=== PATIENT | male | born 1960 | race Two or more races ===

== ENCOUNTER 2017-01-26 15:50 | Emergency (ER) | payer OTHER ==
[~2017-01-26] VITALS: Ht 180.3 cm; Wt 70.3 kg
[2017-01-26 16:59] LABS: Basophils # (auto) 0 uL; Basophils % (auto) 0.2 % (0.0-2.0); CONDITION Y; Eosinophils # (auto) 0.2 uL; Eosinophils % (auto) 1.5 % (0.0-7.0); Hematocrit 45.5 % (41.0-53.0); Hemoglobin 15.8 g/dL (13.5-17.5); Lymphocytes # (auto) 3.3 uL; Lymphocytes % (auto) 22.7 % (10.0-50.0); Mean Corpuscular Hemoglobin 30.9 pg (28.0-32.0); Mean Corpuscular Hgb Conc. 34.7 g/dL (32.0-36.0); Mean Corpuscular Volume 89.2 fL (80.0-100.0); Mean Platelet Volume 8.3 fL (7.4-10.4); Monocytes # (auto) 0.6 uL; Monocytes % (auto) 4.1 % (0.0-12.0); Neutrophils # (auto) 10.3 uL; Neutrophils % (auto) 71.5 % (37.0-80.0); Platelet Count (auto) 289 10^3/uL (140-450); Red Cell Distribution Width 13.7 % (11.6-16.0); White Blood Cell 14.5 10^3/uL (4.4-10.8)
[2017-01-26 17:26] LABS: Albumin 3.7 g/dL (3.4-5.0); Alkaline Phosphatase 166 U/L (45-117); Anion Gap 9 (5-15); Aspartate Aminotransferase 19 U/L (15-37); BUN/Creatinine Ratio 15.3; Bilirubin, Total 0.4 mg/dL (0.2-1.0); Blood Urea Nitrogen 17 mg/dL (7-18); Calcium 8.8 mg/dL (8.5-10.1); Carbon Dioxide 25 mmol/L (21-32); Chloride 93 mmol/L (98-107); GFR African American 88 mL/min; GFR Non-African American 73 mL/min; Magnesium 2.3 mg/dL (1.6-2.6); Potassium 4.3 mmol/L (3.5-5.1); Sodium 127 mmol/L (136-145); Total Protein 7.7 g/dL (6.4-8.2)
[2017-01-26 17:40] LABS: Glucose 510 mg/dL (74-106)
[2017-01-26] MEDS ORDERED: SODIUM CHLORIDE 0.9% 1,000 ML IVB ONE (22:06)
[2017-01-26] MEDS ORDERED: InsuLIN REG 1unit/0.01ml Soln (100units/ml) IV ONE (22:15)
[2017-01-26 22:32] LABS: Allen Test Yes; Base Excess 2.3 mmol/L (-2.0-2.0); Blood 02Sat 92.2 % (96-100); Blood MetHb 0.1 % (0.0-1.5); HCO3 27.4 mmol/L (22-26.0); HHb 7.3 % (0.0-5.0); MODE ROOM AIR; O2Hb 86.6 % (94.0-97.0); PCO2 44.6 mmHg (35.0-45.0); PCO2(T) 44.6 mmHg (35.0-45.0); PO2 64.1 mmHg (80.0-100.0); PO2(T) 64.1 mmHg (80.0-100.0); Sample Type Arterial; pH 7.407 (7.350-7.450)
[2017-01-27 01:31] VITALS: BP 134/70
== END 2017-01-27 01:32 | disposition home or self-care (01) ==
LOC: ER 15:58
DX: E11.65 Type 2 diabetes mellitus with hyperglycemia (principal)
CPT/HCPCS: 36415; 36600; 71020; 80053; 82010; 82805; 82962; 83036; 83735; 84484; 85025; 93005; 96361; 96374; 99285; J1815; J7030; 94761

== ENCOUNTER 2020-12-03 21:06 | Emergency (ER) | payer BC, OTHER ==
[~2020-12-03] VITALS: Ht 180.3 cm; Wt 72.6 kg
[2020-12-03] MEDS ORDERED: TETANUS-DIPTH-ACEL PERTUSSIS 0.5ML SYR Tdap IM ONE (23:00)
[2020-12-03] MEDS ORDERED: cefTRIAXone 1GM/50ML D5W 50 ML IV ONE (23:00)
[2020-12-03] MEDS ORDERED: fentaNYL CITRATE 100 MCG/2 ML VL IV ONE (23:00)
[2020-12-03] MEDS ORDERED: KETOROLAC TROMETH 30 MG/ML 1ML VIAL IV ONE (23:00)
[2020-12-04 04:21] VITALS: BP 155/75
== END 2020-12-04 04:18 | disposition home or self-care (01) ==
LOC: EDBD 21:06 → ER 21:06
DX: S60.552A Superficial foreign body of left hand, initial encounter (principal); S50.812A Abrasion of left forearm, initial encounter; R51.9 Headache, unspecified; M54.2 Cervicalgia; E11.9 Type 2 diabetes mellitus without complications; I10 Essential (primary) hypertension; E78.00 Pure hypercholesterolemia, unspecified; F17.210 Nicotine dependence, cigarettes, uncomplicated; E78.5 Hyperlipidemia, unspecified; V49.49XA Driver injured in collision with other motor vehicles in traffic accident, initial encounter; Y93.89 Activity, other specified; Y92.488 Other paved roadways as the place of occurrence of the external cause; Y99.8 Other external cause status
CPT/HCPCS: 70450; 71250; 72125; 73090; 73120; 73130; 74176; 90471; 90715; 96365; 96375; 99285; J0696; J1885; J3010

== ENCOUNTER 2021-03-26 20:29 | Emergency (ER) | payer BC, OTHER ==
[~2021-03-26] VITALS: Ht 180.3 cm; Wt 71.7 kg
[2021-03-26 20:30] VITALS: BP 155/73
[2021-03-26] MEDS ORDERED: ACCU-CHEK COMFORT CURVE STRIP VI ONE (20:45)
[2021-03-26 20:57] LABS: Basophils # (auto) 0.1 10 ^3/uL (0-0.2); Basophils % (auto) 0.7 % (0.0-2.0); Eosinophils # (auto) 0.4 10 ^3/uL (0-0.8); Eosinophils % (auto) 2.9 % (0.0-7.0); Hematocrit 40.1 % (41.0-53.0); Hemoglobin 13.7 g/dL (13.5-17.5); Lymphocytes # (auto) 3.9 10 ^3/uL (0.4-5.4); Lymphocytes % (auto) 28.3 % (10.0-50.0); Mean Corpuscular Hemoglobin 30.2 pg (28.0-32.0); Mean Corpuscular Volume 88.7 fL (80.0-100.0); Monocytes # (auto) 0.9 10 ^3/uL (0-1.3); Monocytes % (auto) 6.9 % (0.0-12.0); Neutrophils # (auto) 8.4 10 ^3/uL (1.6-8.6); Neutrophils % (auto) 61.2 % (37.0-80.0); Nucleated Red Blood Cells % 0.1 %; Red Blood Cells 4.52 10^6/uL (4.5-5.90); Red Cell Distribution Width 13.1 % (11.8-14.3); White Blood Cell 13.7 10^3/uL (4.4-10.8)
[2021-03-26 21:14] LABS: Albumin 3.3 g/dL (3.4-5.0); Calcium 8.7 mg/dL (8.5-10.1); Potassium 3.8 mmol/L (3.5-5.1)
[2021-03-26 21:17] LABS: BUN/Creatinine Ratio 14.7; Bilirubin, Total 0.3 mg/dL (0.2-1.0); Total Protein 7.2 g/dL (6.4-8.2)
[2021-03-27] MEDS ORDERED: InsuLIN REG 1unit/0.01ml Soln (100units/ml) IV ONE (04:00)
== END 2021-03-27 07:10 | disposition left against medical advice (07) ==
LOC: ER 20:31
DX: R73.9 Hyperglycemia, unspecified (principal); Z53.21 Procedure and treatment not carried out due to patient leaving prior to being seen by health care provider
CPT/HCPCS: 36415; 80053; 85025

== ENCOUNTER 2023-06-18 00:54 | Emergency (ER) | payer MEDICAID ==
[~2023-06-18] VITALS: Ht 170.2 cm; Wt 70.0 kg
[~2023-06-18 00:54] MED LIST: AMLO1TAB23 PO; ATOR40TA52 PO; CEPH-510 PO; CLOP75TA70 PO; ERGO1CAP12 PO; GLIM4TAB42 PO; INSU1INJ19 SC; METF-372 PO; PARO10TA93 PO; SITA100T7 PO
[2023-06-18] MEDS ORDERED: hydrALAZINE HCL 20 MG/ML VL IV ONE (01:15)
[2023-06-18 01:26] VITALS: PULSE 83; RESP 18; TEMP 98.4; O2SAT 95
[2023-06-18 01:45] LABS: Basophils # (auto) 0.1 10 ^3/uL (0-0.2); Basophils % (auto) 0.8 % (0.0-2.0); Eosinophils # (auto) 0.4 10 ^3/uL (0-0.8); Eosinophils % (auto) 3.5 % (0.0-7.0); Hematocrit 42.3 % (41.0-53.0); Hemoglobin 14.4 g/dL (13.5-17.5); Lymphocytes # (auto) 3.2 10 ^3/uL (0.4-5.4); Lymphocytes % (auto) 28.4 % (10.0-50.0); Mean Corpuscular Hemoglobin 29.6 pg (28.0-32.0); Mean Corpuscular Hgb Conc. 34.1 g/dL (32.0-36.0); Mean Corpuscular Volume 86.9 fL (80.0-100.0); Monocytes # (auto) 0.9 10 ^3/uL (0-1.3); Monocytes % (auto) 7.9 % (0.0-12.0); Neutrophils # (auto) 6.6 10 ^3/uL (1.6-8.6); Neutrophils % (auto) 59.4 % (37.0-80.0); Nucleated Red Blood Cells % 0.2 %; Red Blood Cells 4.86 10^6/uL (4.5-5.90); Red Cell Distribution Width 13.7 % (11.8-14.3); White Blood Cell 11.2 10^3/uL (4.4-10.8)
[2023-06-18 02:05] LABS: INR 0.93 (0.9-1.15); Partial Thromboplastin Time 27.4 SEC (24.5-34.5); Prothrombin Time 9.8 sec (9.3-11.8)
[2023-06-18 02:10] LABS: Alanine Aminotransferase 56 U/L (7-40); Albumin 3.8 g/dL (3.2-4.8); Alkaline Phosphatase 147 U/L (46-116); Anion Gap 7 (5-15); Aspartate Aminotransferase 31 U/L (13-40); BUN/Creatinine Ratio 12.2 (10.0-20.0); Bilirubin, Total 0.4 mg/dL (0.2-1.0); Blood Urea Nitrogen 15 mg/dL (9-23); Calcium 8.4 mg/dL (8.7-10.4); Carbon Dioxide 26 mmol/L (20-30); Chloride 102 mmol/L (98-107); Glucose 161 mg/dL (74-106); Magnesium 1.9 mg/dL (1.6-2.6); Potassium 4.4 mmol/L (3.5-5.1); Sodium 135 mmol/L (136-145); Total Protein 6.8 g/dL (5.7-8.2)
[2023-06-18 06:30] VITALS: BP 148/75; PULSE 84; RESP 18; O2SAT 98
== END 2023-06-18 06:35 | disposition home or self-care (01) ==
LOC: ER 00:54 → EDBD 00:54 → EDUNIT# 00:54 → ER 06:35
DX: I10 Essential (primary) hypertension (principal); R42 Dizziness and giddiness; E83.51 Hypocalcemia; E11.65 Type 2 diabetes mellitus with hyperglycemia; R07.89 Other chest pain; E78.5 Hyperlipidemia, unspecified; Z79.4 Long term (current) use of insulin; Z79.01 Long term (current) use of anticoagulants; Z79.899 Other long term (current) drug therapy
CPT/HCPCS: 36415; 70450; 71045; 80053; 83735; 83880; 84484; 85025; 85610; 85730; 93005; 96374; 99285; J0360

== ENCOUNTER → 2023-07-17 | Outpatient (CLI) | payer MEDICAID ==
[2023-07-17 10:51] LABS: Anion Gap 6 (5-15); Calcium 9.1 mg/dL (8.5-10.1); Carbon Dioxide 28 mmol/L (20-30); Chloride 102 mmol/L (98-107); Potassium 4.7 mmol/L (3.5-5.1); Sodium 136 mmol/L (136-145)
[2023-07-17 10:57] LABS: BUN/Creatinine Ratio 15.5 (10.0-20.0); Blood Urea Nitrogen 16 mg/dL (9-23); Glucose 180 mg/dL (74-106)
== END | disposition home or self-care (01) ==
LOC: LAB 09:52
PROVIDERS: ATTEND Internal Medicine
DX: E11.641 Type 2 diabetes mellitus with hypoglycemia with coma (principal); E78.5 Hyperlipidemia, unspecified; Z79.4 Long term (current) use of insulin
CPT/HCPCS: 36415; 80048

== ENCOUNTER 2023-08-06 13:00 | Inpatient (IN) | payer MEDICAID ==
[~2023-08-06] VITALS: Ht 180.3 cm; Wt 71.0 kg
[2023-08-06] MEDS ORDERED: FUROSEMIDE 40 MG/4 ML VIAL IV ONE (17:00)
[2023-08-06 17:04] LABS: Basophils # (auto) 0.1 10 ^3/uL (0-0.2); Basophils % (auto) 0.6 % (0.0-2.0); Eosinophils # (auto) 0.3 10 ^3/uL (0-0.8); Eosinophils % (auto) 3.4 % (0.0-7.0); Hematocrit 39.4 % (41.0-53.0); Hemoglobin 13.2 g/dL (13.5-17.5); Lymphocytes # (auto) 1.9 10 ^3/uL (0.4-5.4); Lymphocytes % (auto) 18.9 % (10.0-50.0); Mean Corpuscular Hemoglobin 29.1 pg (28.0-32.0); Mean Corpuscular Hgb Conc. 33.5 g/dL (32.0-36.0); Mean Corpuscular Volume 86.8 fL (80.0-100.0); Monocytes # (auto) 0.9 10 ^3/uL (0-1.3); Monocytes % (auto) 8.6 % (0.0-12.0); Neutrophils # (auto) 6.9 10 ^3/uL (1.6-8.6); Neutrophils % (auto) 68.5 % (37.0-80.0); Red Blood Cells 4.55 10^6/uL (4.5-5.90); Red Cell Distribution Width 13.3 % (11.8-14.3); White Blood Cell 10.1 10^3/uL (4.4-10.8)
[2023-08-06 17:21] LABS: Alanine Aminotransferase 39 U/L (7-40); Alkaline Phosphatase 187 U/L (46-116); Calcium 8.7 mg/dL (8.5-10.1); Carbon Dioxide 26 mmol/L (20-30); Chloride 104 mmol/L (98-107)
[2023-08-06 17:22] LABS: Albumin 3.9 g/dL (3.2-4.8); Anion Gap 8 (5-15); Aspartate Aminotransferase 29 U/L (13-40); BUN/Creatinine Ratio 22.2 (10.0-20.0); Bilirubin, Total 0.3 mg/dL (0.2-1.0); Blood Urea Nitrogen 28 mg/dL (9-23); Glucose 120 mg/dL (74-106); Potassium 4.7 mmol/L (3.5-5.1); Sodium 138 mmol/L (136-145); Total Protein 6.9 g/dL (5.7-8.2)
[2023-08-06] MEDS ORDERED: ONDANSETRON HCL 4 MG/2 ML VIAL IV PRN (17:45)
[2023-08-06] MEDS ORDERED: ACETAMINOPHEN 325 MG TAB PO PRN (17:45)
[2023-08-06] MEDS ORDERED: MORPHINE SULFATE INJ 2 MG/ml SYRG IV PRN (17:45)
[2023-08-06] MEDS ORDERED: DOCUSATE SOD 100 MG CAP PO PRN (17:45)
[2023-08-06] MEDS ORDERED: NITROGLYCERIN 0.4 MG SL TAB SL PRN (17:45)
[2023-08-06] MEDS ORDERED: LISI20TA56 PO (19:18)
[2023-08-06] MEDS ORDERED: ALBUTEROL SULF 2.5 MG/0.5ML(0.5%) NEB SOLN NEB PRN (19:30)
[2023-08-06] MEDS ORDERED: IPRATROPIUM BROM 0.5 MG/2.5ML INH SOL NEB PRN (19:30)
[2023-08-06 20:30] VITALS: PULSE 95; RESP 18; O2SAT 95
[2023-08-07] VITALS (9 sets, daily range): BP systolic 141–165; BP diastolic 81–85; PULSE 0–90; RESP 17–18; TEMP 97.8–98; O2SAT 92–98
[2023-08-07] MEDS: ATORVASTATIN 20 MG TAB PO SCH ×2 (00:05→21:04)
[2023-08-07 03:56] LABS: Urine Bacteria NONE SEEN /hpf (None Seen); Urine Blood TRACE /uL (Negative); Urine Clarity Clear (Clear); Urine Color Yellow (Yellow); Urine Protein, UAD 3+ (Negative); Urine Specific Gravity 1.016 (1.001-1.035); Urine Urobilinogen Normal (Negative); Urine WBC 1 /hpf (0 - 3)
[2023-08-07 05:56] LABS: COVID19 ANTIGEN SOFIA FIA NEGATIVE (NEGATIVE)
[2023-08-07 06:54] LABS: Basophils # (auto) 0.1 10 ^3/uL (0-0.2); Basophils % (auto) 0.6 % (0.0-2.0); Eosinophils # (auto) 0.3 10 ^3/uL (0-0.8); Hematocrit 38.3 % (41.0-53.0); Hemoglobin 13.2 g/dL (13.5-17.5); Lymphocytes % (auto) 18.5 % (10.0-50.0); Mean Corpuscular Hemoglobin 30.1 pg (28.0-32.0); Mean Corpuscular Hgb Conc. 34.6 g/dL (32.0-36.0); Mean Corpuscular Volume 86.9 fL (80.0-100.0); Monocytes # (auto) 0.8 10 ^3/uL (0-1.3); Monocytes % (auto) 7.3 % (0.0-12.0); Neutrophils # (auto) 7.4 10 ^3/uL (1.6-8.6); Neutrophils % (auto) 70.6 % (37.0-80.0); Nucleated Red Blood Cells % 0.2 %; Red Cell Distribution Width 13.5 % (11.8-14.3); White Blood Cell 10.5 10^3/uL (4.4-10.8)
[2023-08-07 07:03] LABS: Alanine Aminotransferase 32 U/L (7-40); Albumin 3.9 g/dL (3.2-4.8); Alkaline Phosphatase 176 U/L (46-116); Anion Gap 8 (5-15); Aspartate Aminotransferase 30 U/L (13-40); BUN/Creatinine Ratio 19.8 (10.0-20.0); Blood Urea Nitrogen 26 mg/dL (9-23); Calcium 8.6 mg/dL (8.5-10.1); Carbon Dioxide 25 mmol/L (20-30); Chloride 102 mmol/L (98-107); Glucose 185 mg/dL (74-106); Potassium 4.3 mmol/L (3.5-5.1); Sodium 135 mmol/L (136-145)
[2023-08-07 07:04] LABS: Bilirubin, Total 0.3 mg/dL (0.2-1.0); Total Protein 7.1 g/dL (5.7-8.2)
[2023-08-07] MEDS ORDERED: INSULIN LANTUS (GLARGINE) 1 /0.01ml (100units/ml) SC ONE (09:45)
[2023-08-07] MEDS ORDERED: DEXTROSE (50%) 50ML SYRG IV PRN (09:45)
[2023-08-07] MEDS ORDERED: FUROSEMIDE 20 MG/2 ML VIAL IV SCH (10:00)
[2023-08-07 10:10] LABS: Magnesium 2.4 mg/dL (1.6-2.6)
[2023-08-07] MEDS ORDERED: ASPI1TAB20 PO (10:18)
[2023-08-07] MEDS ORDERED: INSU100I52 SC (11:15)
[2023-08-07] MEDS ORDERED: INSU100I70 SC (11:15)
[2023-08-07] MEDS ORDERED: METF-370 PO (11:15)
[2023-08-07] MEDS ORDERED: PEN400T PO (11:15)
[2023-08-07] MEDS ORDERED: ASPI325T4 PO (11:15)
[2023-08-07] MEDS ORDERED: GABA-1308 PO (11:15)
[2023-08-07] MEDS: InsuLIN REG 1unit/0.01ml Soln (100units/ml) SC SCH ×3 (11:30→21:12)
[2023-08-07] MEDS: ACCU-CHEK COMFORT CURVE STRIP VI SCH ×3 (11:30→21:12)
[2023-08-07] MEDS: FUROSEMIDE 20 MG/2 ML VIAL IV SCH ×2 (11:51→21:04)
[2023-08-07] MEDS: LISINOPRIL 20 MG TAB PO SCH (11:52)
[2023-08-07] MEDS: CARVEDILOL 3.125 MG TAB PO SCH ×2 (11:53→21:04)
[2023-08-07] MEDS: ENOXAPARIN SOD 40 MG/0.4 ML SYRINGE SC SCH (11:53)
[2023-08-07] MEDS: amLODIPine BESYLATE 5 MG TAB PO SCH (11:53)
[2023-08-07] MEDS: CLOPIDOGREL BISULFATE 75 MG TAB PO SCH (11:53)
[2023-08-08 05:00] VITALS: BP 138/74; PULSE 70; RESP 20; TEMP 97.6; O2SAT 91
[2023-08-08] MEDS: InsuLIN REG 1unit/0.01ml Soln (100units/ml) SC SCH ×2 (06:02→12:23)
[2023-08-08] MEDS: ACCU-CHEK COMFORT CURVE STRIP VI SCH ×2 (06:02→12:24)
[2023-08-08 06:22] LABS: Basophils # (auto) 0.1 10 ^3/uL (0-0.2); Basophils % (auto) 0.8 % (0.0-2.0); Eosinophils # (auto) 0.4 10 ^3/uL (0-0.8); Eosinophils % (auto) 4.3 % (0.0-7.0); Hematocrit 35.2 % (41.0-53.0); Hemoglobin 12.1 g/dL (13.5-17.5); Lymphocytes # (auto) 2.4 10 ^3/uL (0.4-5.4); Lymphocytes % (auto) 26.1 % (10.0-50.0); Mean Corpuscular Hemoglobin 29.8 pg (28.0-32.0); Mean Corpuscular Hgb Conc. 34.4 g/dL (32.0-36.0); Mean Corpuscular Volume 86.8 fL (80.0-100.0); Monocytes # (auto) 0.8 10 ^3/uL (0-1.3); Monocytes % (auto) 8.9 % (0.0-12.0); Neutrophils # (auto) 5.5 10 ^3/uL (1.6-8.6); Neutrophils % (auto) 59.9 % (37.0-80.0); Red Blood Cells 4.05 10^6/uL (4.5-5.90); Red Cell Distribution Width 13.3 % (11.8-14.3); White Blood Cell 9.2 10^3/uL (4.4-10.8)
[2023-08-08 06:24] LABS: INR 1.01 (0.9-1.15); Prothrombin Time 10.6 sec (9.3-11.8)
[2023-08-08 06:25] LABS: Anion Gap 7 (5-15); Calcium 8.5 mg/dL (8.5-10.1); Carbon Dioxide 25 mmol/L (20-30); Chloride 103 mmol/L (98-107); Potassium 4.2 mmol/L (3.5-5.1); Sodium 135 mmol/L (136-145)
[2023-08-08 06:30] LABS: Glucose 107 mg/dL (74-106)
[2023-08-08 06:31] LABS: BUN/Creatinine Ratio 14.9 (10.0-20.0); Blood Urea Nitrogen 17 mg/dL (9-23)
[2023-08-08 06:33] LABS: Phosphorus 4.4 mg/dL (2.4-5.1)
[2023-08-08] MEDS ORDERED: INSULIN LANTUS (GLARGINE) 1 /0.01ml (100units/ml) SC SCH (07:00)
[2023-08-08 07:50] VITALS: O2SAT 95
[2023-08-08 08:00] VITALS: PULSE 81
[2023-08-08 09:27] VITALS: BP 153/75; PULSE 83; RESP 20; TEMP 98.2; O2SAT 93
[2023-08-08] MEDS: CLOPIDOGREL BISULFATE 75 MG TAB PO SCH (10:43)
[2023-08-08] MEDS: LISINOPRIL 20 MG TAB PO SCH (10:43)
[2023-08-08] MEDS: amLODIPine BESYLATE 5 MG TAB PO SCH (10:44)
[2023-08-08] MEDS: CARVEDILOL 3.125 MG TAB PO SCH (10:45)
[2023-08-08] MEDS: FUROSEMIDE 20 MG/2 ML VIAL IV SCH (10:45)
[2023-08-08] MEDS: ENOXAPARIN SOD 40 MG/0.4 ML SYRINGE SC SCH (10:45)
[2023-08-08] MEDS ORDERED: EMPA1TAB PO (11:14)
[2023-08-08] MEDS ORDERED: FURO1TAB33 PO (11:14)
[2023-08-08 12:02] LABS: Magnesium 2.4 mg/dL (1.6-2.6)
[2023-08-08 12:29] VITALS: BP 132/74; PULSE 78; RESP 20; TEMP 98.4; O2SAT 95
[2023-08-09 08:28] LABS: Hepatitis B Surface Antigen Negative (Negative)
[2023-08-09 08:49] LABS: Hepatitis C Antibody Negative (Negative)
== END 2023-08-08 16:45 | disposition home or self-care (01) | DRG 194 ==
LOC: ER 13:00 → TELE 17:43 → TELE-WESTW 08-07 09:13
PROVIDERS: ADMIT Internal Medicine Geriatric Medicine; ATTEND Emergency Medicine
DX: I11.0 Hypertensive heart disease with heart failure (principal); E11.9 Type 2 diabetes mellitus without complications; I50.33 Acute on chronic diastolic (congestive) heart failure; R09.89 Other specified symptoms and signs involving the circulatory and respiratory systems; E78.5 Hyperlipidemia, unspecified; Z20.822 Contact with and (suspected) exposure to COVID-19; Z89.511 Acquired absence of right leg below knee; Z79.2 Long term (current) use of antibiotics; Z79.899 Other long term (current) drug therapy; Z79.02 Long term (current) use of antithrombotics/antiplatelets; Z83.3 Family history of diabetes mellitus; Z82.49 Family history of ischemic heart disease and other diseases of the circulatory system
CPT/HCPCS: 36415; 71046; 80048; 80053; 80061; 81001; 82306; 82962; 83036; 83735; 83880; 84100; 84443; 84484; 85025; 85610; 86803; 87340; 87426; 93005; 93306; 93970; G0378; J1815

== ENCOUNTER → 2023-10-09 | Outpatient (CLI) | payer MEDICAID ==
[~2023-10-09] VITALS: Ht 180.3 cm; Wt 73.5 kg
[~2023-10-09] MED LIST changes: +ADENOSINE 62 MG in GIVE UN-DILUTED 0 ML IV ONE; +ADENOSINE 90 MG/30 ML INJ IV ONE; -AMLO1TAB23 PO; +ASPI1TAB20 PO; -CEPH-510 PO; +EMPA1TAB PO; -ERGO1CAP12 PO; +FURO1TAB33 PO; +GABA-1308 PO; +INSU100I52 SC; +INSU100I70 SC; -INSU1INJ19 SC; +LISI20TA56 PO; +METF-370 PO; -METF-372 PO; -PARO10TA93 PO; +PEN400T PO; -SITA100T7 PO
== END | disposition home or self-care (01) ==
LOC: Rad HDHVI 14:04
PROVIDERS: ATTEND Internal Medicine Cardiovascular Disease
DX: I10 Essential (primary) hypertension (principal); E11.9 Type 2 diabetes mellitus without complications; R06.02 Shortness of breath; E78.5 Hyperlipidemia, unspecified; Z82.49 Family history of ischemic heart disease and other diseases of the circulatory system
CPT/HCPCS: 78452; 93005; 96374; 96375; A9500; J0153

== ENCOUNTER → 2024-01-22 | Outpatient (CLI) | payer MEDICAID ==
[~2024-01-22] MED LIST changes: -ADENOSINE 62 MG in GIVE UN-DILUTED 0 ML IV ONE; -ADENOSINE 90 MG/30 ML INJ IV ONE
[2024-01-22 08:00] LABS: Urine Bacteria None Seen /hpf (None Seen)
[2024-01-22 08:06] LABS: Basophils # (auto) 0.1 10 ^3/uL (0-0.2); Basophils % (auto) 0.8 % (0.0-2.0); Eosinophils # (auto) 0.5 10 ^3/uL (0-0.8); Eosinophils % (auto) 3.7 % (0.0-7.0); Hematocrit 46.3 % (41.0-53.0); Hemoglobin 15.6 g/dL (13.5-17.5); Lymphocytes # (auto) 2.8 10 ^3/uL (0.4-5.4); Lymphocytes % (auto) 22.3 % (10.0-50.0); Mean Corpuscular Hemoglobin 29.6 pg (28.0-32.0); Mean Corpuscular Hgb Conc. 33.6 g/dL (32.0-36.0); Mean Corpuscular Volume 87.9 fL (80.0-100.0); Monocytes # (auto) 0.9 10 ^3/uL (0-1.3); Neutrophils # (auto) 8.4 10 ^3/uL (1.6-8.6); Neutrophils % (auto) 66.2 % (37.0-80.0); Nucleated Red Blood Cells % 0.2 %; Red Blood Cells 5.27 10^6/uL (4.5-5.90); Red Cell Distribution Width 13.7 % (11.8-14.3); White Blood Cell 12.7 10^3/uL (4.4-10.8)
[2024-01-22 08:19] LABS: Urine Blood TRACE /uL (Negative); Urine Clarity Clear (Clear); Urine Color Light-Yellow (Yellow); Urine Hyaline Cast FEW /lpf (0 - 2); Urine Protein, UAD 2+ (Negative); Urine Specific Gravity 1.015 (1.001-1.035); Urine Urobilinogen Normal (Negative); Urine WBC 1 /hpf (0 - 3)
[2024-01-22 08:48] LABS: Creatinine, Urine 61.95 mg/dL (30.0-125.0)
[2024-01-22 08:51] LABS: Alanine Aminotransferase 31 U/L (7-40); Alkaline Phosphatase 244 U/L (46-116); Anion Gap 6 (5-15); BUN/Creatinine Ratio 14.3 (10.0-20.0); Blood Urea Nitrogen 15 mg/dL (9-23); Calcium 9.2 mg/dL (8.5-10.1); Carbon Dioxide 28 mmol/L (20-30); Chloride 104 mmol/L (98-107); Glucose 144 mg/dL (74-106); LDL Cholesterol 74 mg/dL (< 100); Potassium 4.2 mmol/L (3.5-5.1); Sodium 138 mmol/L (136-145); Triglycerides 186 mg/dL (< 150)
[2024-01-22 08:52] LABS: Albumin 3.9 g/dL (3.2-4.8); Aspartate Aminotransferase 20 U/L (13-40); Bilirubin, Total 0.4 mg/dL (0.2-1.0); Cholesterol 135 mg/dL (< 200); HDL Cholesterol 32 mg/dL (40-59); Total Protein 6.8 g/dL (5.7-8.2)
== END | disposition home or self-care (01) ==
LOC: LAB 07:47
PROVIDERS: ATTEND Internal Medicine
DX: Z00.01 Encounter for general adult medical examination with abnormal findings (principal); I10 Essential (primary) hypertension; I73.9 Peripheral vascular disease, unspecified; E78.5 Hyperlipidemia, unspecified; R94.4 Abnormal results of kidney function studies; E11.69 Type 2 diabetes mellitus with other specified complication
CPT/HCPCS: 36415; 80053; 80061; 81001; 82043; 82570; 83036; 84439; 84443; 85025

== ENCOUNTER → 2024-05-07 | Outpatient (CLI) | payer MEDICARE, MEDICAID ==
[2024-05-07 08:54] LABS: Basophils # (auto) 0.1 10 ^3/uL (0-0.2); Basophils % (auto) 0.6 % (0.0-2.0); Eosinophils # (auto) 0.3 10 ^3/uL (0-0.8); Eosinophils % (auto) 2.9 % (0.0-7.0); Hematocrit 47.4 % (41.0-53.0); Hemoglobin 16.3 g/dL (13.5-17.5); Lymphocytes # (auto) 2.5 10 ^3/uL (0.4-5.4); Lymphocytes % (auto) 22.2 % (10.0-50.0); Mean Corpuscular Hemoglobin 30.6 pg (28.0-32.0); Mean Corpuscular Hgb Conc. 34.3 g/dL (32.0-36.0); Mean Corpuscular Volume 89.1 fL (80.0-100.0); Monocytes # (auto) 0.6 10 ^3/uL (0-1.3); Monocytes % (auto) 5.3 % (0.0-12.0); Neutrophils # (auto) 7.8 10 ^3/uL (1.6-8.6); Nucleated Red Blood Cells % 0.1 %; Platelet Count (auto) 300 10^3/uL (140-450); Red Blood Cells 5.32 10^6/uL (4.5-5.90); Red Cell Distribution Width 14.5 % (11.8-14.3); White Blood Cell 11.2 10^3/uL (4.4-10.8)
[2024-05-07 08:59] LABS: Creatinine, Urine 101.47 mg/dL (30.0-125.0)
[2024-05-07 09:02] LABS: Alanine Aminotransferase 28 U/L (7-40); Albumin 3.6 g/dL (3.2-4.8); Alkaline Phosphatase 214 U/L (46-116); Anion Gap 5 (5-15); Aspartate Aminotransferase 24 U/L (13-40); BUN/Creatinine Ratio 20.3 (10.0-20.0); Blood Urea Nitrogen 26 mg/dL (9-23); Calcium 8.9 mg/dL (8.7-10.4); Carbon Dioxide 25 mmol/L (20-31); Chloride 108 mmol/L (98-107); Glucose 156 mg/dL (74-106); Potassium 4.5 mmol/L (3.5-5.1); Prostate Specific Antigen 0.32 ng/mL (0.0-4.0); Sodium 138 mmol/L (136-145)
[2024-05-07 09:03] LABS: Bilirubin, Total 0.4 mg/dL (0.2-1.0); Total Protein 6.6 g/dL (5.7-8.2)
[2024-05-07 09:06] LABS: Leuteinizing Hormone 9.4 IU/L (1.5-9.3)
[2024-05-12 00:06] LABS: Free Testosterone(Direct) 8.5 pg/mL (6.6-18.1)
== END | disposition home or self-care (01) ==
LOC: LAB 08:14
PROVIDERS: ATTEND Internal Medicine
DX: Z12.5 Encounter for screening for malignant neoplasm of prostate (principal); C61 Malignant neoplasm of prostate; I13.0 Hypertensive heart and chronic kidney disease with heart failure and stage 1 through stage 4 chronic kidney disease, or unspecified chronic kidney disease; N18.2 Chronic kidney disease, stage 2 (mild); E11.22 Type 2 diabetes mellitus with diabetic chronic kidney disease; I50.9 Heart failure, unspecified; E29.1 Testicular hypofunction
CPT/HCPCS: 36415; 80053; 82043; 82570; 83001; 83002; 83036; 84402; 84403; 85025; G0103; 84153

== ENCOUNTER → 2024-07-18 | Day surgery (SDC) | payer MEDICARE, MEDICAID ==
[2024-07-15 09:56] LABS: Basophils # (auto) 0.1 10 ^3/uL (0-0.2); Basophils % (auto) 0.7 % (0.0-2.0); Eosinophils # (auto) 0.3 10 ^3/uL (0-0.8); Eosinophils % (auto) 2.6 % (0.0-7.0); Hematocrit 48.6 % (41.0-53.0); Hemoglobin 16.2 g/dL (13.5-17.5); Lymphocytes # (auto) 2.5 10 ^3/uL (0.4-5.4); Mean Corpuscular Hemoglobin 29.6 pg (28.0-32.0); Mean Corpuscular Hgb Conc. 33.5 g/dL (32.0-36.0); Mean Corpuscular Volume 88.4 fL (80.0-100.0); Monocytes # (auto) 0.6 10 ^3/uL (0-1.3); Monocytes % (auto) 5.6 % (0.0-12.0); Neutrophils # (auto) 7.5 10 ^3/uL (1.6-8.6); Neutrophils % (auto) 68.1 % (37.0-80.0); Nucleated Red Blood Cells % 0.1 %; Platelet Count (auto) 286 10^3/uL (140-450); Red Blood Cells 5.49 10^6/uL (4.5-5.90); Red Cell Distribution Width 14.4 % (11.8-14.3)
[2024-07-15 10:07] LABS: INR 0.95 (0.9-1.15); Partial Thromboplastin Time 28.1 SEC (24.5-34.5); Prothrombin Time 10.1 sec (9.3-11.8)
[2024-07-15 10:22] LABS: Alanine Aminotransferase 33 U/L (7-40); Albumin 3.2 g/dL (3.2-4.8); Anion Gap 4 (5-15); Aspartate Aminotransferase 21 U/L (13-40); BUN/Creatinine Ratio 14.3 (10.0-20.0); Blood Urea Nitrogen 16 mg/dL (9-23); Carbon Dioxide 27 mmol/L (20-31); Chloride 107 mmol/L (98-107); Sodium 138 mmol/L (136-145)
[2024-07-15 10:23] LABS: Alkaline Phosphatase 259 U/L (46-116); Calcium 8.4 mg/dL (8.7-10.4); Glucose 190 mg/dL (74-106)
[2024-07-15 10:24] LABS: Bilirubin, Total 0.4 mg/dL (0.2-1.0)
[~2024-07-18] VITALS: Ht 180.3 cm; Wt 70.3 kg
[~2024-07-18] MED LIST changes: +DexAMETHasone SOD PHOS 10MG/1ML VIAL INJ ONE; +LIDOCAINE VISCOUS 2% 15ML UD ONE; +MEPERIDINE HCL (25 MG/ML) 1ML VIAL ONE; +MIDAZOLAM HCL 2MG/2ML 2ml VIAL (1mg/ml) ONE; +PROPOFOL 10 MG/ML 20 ML IV ONE; +fentaNYL CITRATE 100 MCG/2 ML VL ONE
[2024-07-18 10:20] LABS: Urine Bacteria FEW /hpf (None Seen); Urine Blood 2+ /uL (Negative); Urine Clarity Clear (Clear); Urine Color Yellow (Yellow); Urine Hyaline Cast FEW /lpf (0 - 2); Urine Protein, UAD 3+ (Negative); Urine Specific Gravity 1.016 (1.001-1.035); Urine Urobilinogen Normal (Negative); Urine WBC 2 /hpf (0 - 3)
[2024-07-18 11:42] VITALS: BP 107/53; PULSE 62; RESP 11; O2SAT 100
--- NOTE | 2024-07-18 12:31 | DVHOP2 ---
Operative Report DATE OF OPERATION: 07/18/24 PROCEDURE: Upper Endoscopy with biopsy. PREOPERATIVE INDICATION: The patient is a 63 -year-old male undergoing endoscopy for GERD and abdominal pain POSTOPERATIVE DIAGNOSES: 1. Moderate gastroduodenitis with pre-pyloric antral gastric erosions and pylorospasm 2. 1 cm sliding-type hiatal hernia with slightly irregular squamocolumnar junction but no significant erosive esophagitis PROCEDURE PERFORMED BY: Sharita Vásquez GI NURSE: Ko SCOPE: Olympus videoendoscope. ASA CLASS: 3. PREOPERATIVE MEDICATIONS: Dr. Mirna Chacko PROCEDURE IN DETAIL: After obtaining an informed consent, the patient was placed on left lateral decubitus position. The patient was then sedated with the above medications. A bite block was placed between his teeth. The endoscope was then passed through the oropharynx, into the esophagus, and through the stomach and pylorus up to the second and third part of the duodenum. The endoscope was then withdrawn. The 2nd and 3rd part of the duodenal were normal. Duodenal bulb showed duodenitis with hyperemia erythema The pre-pyloric area antrum showed antral gastritis with pre-pyloric antral gastric erosions. There was pylorospasm Duodenal and gastric biopsies were obtained. On retroflexion the fundus cardia and angularis were normal. The endoscope was then withdrawn into the distal esophagus where she had a 1 cm sliding-type hiatal hernia There was no significant erosive esophagitis but I did do GE junction biopsies. The remaining distal and proximal esophagus and oropharynx were unremarkable The patient tolerated the procedure well without difficulty. COMPLICATIONS : None SPECIMENS: Duodenal biopsies Gastric biopsies GE junction biopsies DISPOSITION: Stable D/C to home PLAN: 1. Await for biopsy result 2. Will place pt on Protonix 40 mg p.o. daily 3. Carafate 1 g p.o. twice a day 4. DC aspirin NSAIDs smoking alcohol 5. Resume GI soft diet and advance as tolerated SHARITA VÁSQUEZ MD Jul 18, 2024 12:31
--- NOTE | 2024-07-18 12:35 | DVHOP2 ---
Operative Report DATE OF OPERATION: 07/18/24 PROCEDURE: Colonoscopy with snare polypectomy. PREOPERATIVE INDICATION: The patient is a 63 -year-old male undergoing colonoscopy for colon cancer screening with change in bowel habits increasing constipation POSTOPERATIVE DIAGNOSES: 1. Patient had a 2 cm benign-appearing ascending colon polyp that was seen and removed completely in a piecemeal fashion and the specimens were retrieved 2. 1+ internal hemorrhoids that were slightly engorged 3. Somewhat limited study due to poor prep otherwise grossly normal examination up to the cecum PROCEDURE PERFORMED BY: Sharita Vásquez M.D. SCOPE: Olympus videocolonoscope. ASA CLASS: 3. PREOPERATIVE MEDICATIONS: Mac Dr. Mirna collier PROCEDURE IN DETAIL: After obtaining an informed consent, the patient was placed on left lateral decubitus position. He was then sedated with the above medications. A rectal examination was performed that was normal. The colonoscope was then passed through the anus into the rectosigmoid and through the descending, transverse, and ascending colon up to the cecum with visualization of the appendiceal orifice, base of the cecum and the ileocecal valve. The colonoscope was then withdrawn. Patient had a 2 cm benign-appearing ascending colon polyp. This was removed in a piecemeal fashion and the specimen was removed completely. An adjacent smaller tiny polyp was removed by cold biopsy forceps. No other polyps or masses were seen. The patient had a somewhat limited study due to poor prep however after careful irrigation aspiration no other gross lesion was seen. On retroflexion he had 1+ internal hemorrhoids. The patient tolerated the procedure well without difficulty. WITHDRAWAL TIME: 12 minutes QUALITY OF THE PREP: [place] Bowel Prep score: 7. COMPLICATIONS : None SPECIMENS: Ascending colon polyp DISPOSITION: Stable D/C to home PLAN: 1. Repeat colonoscopy based on biopsy result likely in 2-3 years with a better bowel prep 2. Resume GI soft diet advance as tolerated 3. Increase fluid and fiber intake 4. Local anorectal hemorrhoidal care 5. Outpatient follow up with me in 4-6 weeks to review results and discuss further management SHARITA VÁSQUEZ MD Jul 18, 2024 12:35
== END | disposition home or self-care (01) ==
LOC: GI 09:12
PROVIDERS: ATTEND Internal Medicine Gastroenterology
DX: R19.4 Change in bowel habit (principal); K64.0 First degree hemorrhoids; D12.2 Benign neoplasm of ascending colon; K21.00 Gastro-esophageal reflux disease with esophagitis, without bleeding; K31.A0 Gastric intestinal metaplasia, unspecified; K25.9 Gastric ulcer, unspecified as acute or chronic, without hemorrhage or perforation; K29.90 Gastroduodenitis, unspecified, without bleeding; K31.3 Pylorospasm, not elsewhere classified; K44.9 Diaphragmatic hernia without obstruction or gangrene; F17.200 Nicotine dependence, unspecified, uncomplicated; I11.0 Hypertensive heart disease with heart failure; I50.9 Heart failure, unspecified; I25.10 Atherosclerotic heart disease of native coronary artery without angina pectoris; E11.51 Type 2 diabetes mellitus with diabetic peripheral angiopathy without gangrene; Z79.899 Other long term (current) drug therapy; Z79.84 Long term (current) use of oral hypoglycemic drugs
CPT/HCPCS: 36415; 43239; 45380; 80053; 81001; 82962; 85025; 85610; 85730; 88305; 88312; 88342; J1100; J2175; J2250; J2704; J3010; J7030

== ENCOUNTER → 2024-08-21 | Outpatient (CLI) | payer MEDICARE, MEDICAID ==
[~2024-08-21] MED LIST changes: -DexAMETHasone SOD PHOS 10MG/1ML VIAL INJ ONE; -LIDOCAINE VISCOUS 2% 15ML UD ONE; -MEPERIDINE HCL (25 MG/ML) 1ML VIAL ONE; -MIDAZOLAM HCL 2MG/2ML 2ml VIAL (1mg/ml) ONE; -PROPOFOL 10 MG/ML 20 ML IV ONE; -fentaNYL CITRATE 100 MCG/2 ML VL ONE
[2024-08-21 07:42] LABS: Basophils # (auto) 0.1 10 ^3/uL (0-0.2); Basophils % (auto) 0.6 % (0.0-2.0); Eosinophils # (auto) 0.4 10 ^3/uL (0-0.8); Eosinophils % (auto) 2.9 % (0.0-7.0); Hematocrit 46.1 % (41.0-53.0); Hemoglobin 15.7 g/dL (13.5-17.5); Lymphocytes # (auto) 2.3 10 ^3/uL (0.4-5.4); Lymphocytes % (auto) 18.2 % (10.0-50.0); Mean Corpuscular Hemoglobin 29.9 pg (28.0-32.0); Mean Corpuscular Hgb Conc. 34.1 g/dL (32.0-36.0); Mean Corpuscular Volume 87.8 fL (80.0-100.0); Monocytes # (auto) 0.7 10 ^3/uL (0-1.3); Monocytes % (auto) 5.7 % (0.0-12.0); Neutrophils # (auto) 9.1 10 ^3/uL (1.6-8.6); Neutrophils % (auto) 72.6 % (37.0-80.0); Platelet Count (auto) 264 10^3/uL (140-450); Red Blood Cells 5.24 10^6/uL (4.5-5.90); Red Cell Distribution Width 14.4 % (11.8-14.3); White Blood Cell 12.6 10^3/uL (4.4-10.8)
[2024-08-21 08:53] LABS: Alanine Aminotransferase 21 U/L (7-40); Albumin 3.3 g/dL (3.2-4.8); Anion Gap 3 (5-15); Aspartate Aminotransferase 19 U/L (13-40); BUN/Creatinine Ratio 12.7 (10.0-20.0); Blood Urea Nitrogen 16 mg/dL (9-23); Carbon Dioxide 29 mmol/L (20-31); Sodium 140 mmol/L (136-145)
[2024-08-21 08:54] LABS: Alkaline Phosphatase 218 U/L (46-116); Bilirubin, Total 0.3 mg/dL (0.2-1.0); Calcium 8.5 mg/dL (8.7-10.4); Chloride 108 mmol/L (98-107); Glucose 123 mg/dL (74-106); Total Protein 5.8 g/dL (5.7-8.2)
== END | disposition home or self-care (01) ==
LOC: LAB 07:13
PROVIDERS: ATTEND Internal Medicine
DX: D72.829 Elevated white blood cell count, unspecified (principal); R74.8 Abnormal levels of other serum enzymes
CPT/HCPCS: 36415; 80053; 85025

== ENCOUNTER 2024-09-17 16:42 | Inpatient (IN) | payer MEDICARE, MEDICAID ==
[~2024-09-17] VITALS: Ht 177.8 cm; Wt 81.5 kg
[~2024-09-17 16:42] MED LIST changes: +DULA1INJ SC; +EMPA1TAB3 PO; +FURO20TA3 PO
[2024-09-17] MEDS: IPRATROPIUM BROM 0.5 MG/2.5ML INH SOL HHN ONE (17:06)
[2024-09-17] MEDS: ALBUTEROL SULF 2.5 MG/0.5ML(0.5%) NEB SOLN HHN ONE (17:06)
--- NOTE | 2024-09-17 17:10 | ED.PDOC ---
SOB-HPI HPI Comments 63y M who presents to the ED via EMS for chief complaint of shortness of breath. Pt states he has been having shortness of breath for the past 15 mins prior to EMS arrival. EMS states on arrival, pt was noted short of breath and difficultly while attempting to speak. EMS checked vitals and noted pt had 02 sat of 70% on room air and pt was given 2x breathing treatments. Pt was also placed on 4 L via NC and upon arrival, pt had o2 sat of 95%. Pt states in the ED, he is having dry cough but otherwise denies shortness of breath, fever, chest pain, or any associated symptoms. Pt otherwise denies any other symptoms at this time. Chief Complaint: Shortness of Breath Time Seen by MD: 17:06 Primary Care Provider: ANGEL TABARES Reviewed notes: Nurses Notes, Booster Assembler Notes, Medications, Allergies (No allergies at this time) Information Source: Patient, Emergency Med Personnel Mode of Arrival: EMS Brought in by: EMS Severity: Moderate Timing: Minutes, Hours Duration: Since onset Context: At Rest, With Light Exertion PE Risk Factors: None History of: COPD Prehospital treatment: Oxygen, Treatment (breathing 2x treatments albuterol and atrovent) Modifying Factors: Exertion Associated Signs and Symptoms: Cough If cough with SOB: Non-Productive Past Medical History PAST MEDICAL HISTORY: COPD, DM, High Lipids, HTN Surgical History: Appendectomy, BKA Surgical History (Other): r below knee amputation, 2x leg stents Family History Family History: Family hx of DM Social History Smoker: Cigarettes Alcohol: Denies ETOH Use Drugs: Denies Drug Use Lives In: Home Constitutional: denies: chills, diaphoresis, fatigue, fever, malaise, sweats, weakness, others EENTM: denies: blurred vision, double vision, ear bleeding, ear discharge, ear drainage, ear pain, ear ringing, eye pain, eye redness, hearing loss, mouth pain, mouth swelling, nasal discharge, nose bleeding, nose congestion, nose pain, photophobia, tearing, throat pain, throat swelling, voice changes, others Respiratory: reports: cough, SOB at rest, shortness of breath, SOB with excertion; denies: hemoptysis, orthopnea, stridor, wheezing, others Cardiovascular: denies: chest pain, dizzy spells, diaphoresis, Dyspnea on exertion, edema, irregular heart beat, left arm pain, lightheadedness, palpitations, PND, syncope, others Gastrointestinal: denies: abdomen distended, abdominal pain, blood streaked bowels, constipated, diarrhea, dysphagia, difficulty swallowing, hematemesis, melena, nausea, poor appetite, poor fluid intake, rectal bleeding, rectal pain, vomiting, others Genitourinary: denies: burning, dysuria, flank pain, frequency, hematuria, incontinence, penile discharge, penile sore, pain, testicle pain, testicle swelling, urgency, others Neurological: denies: dizziness, fainting, headache, left sided numbness, left sided weakness, numbness, paresthesia, pre-existing deficit, right sided numbness, right sided weakness, seizure, speech problems, tingling, tremors, weakness, others Musculoskeletal: denies: back pain, gout, joint pain, joint swelling, muscle pain, muscle stiffness, neck pain, others Integumetry: denies: bruises, change in color, change in hair/nails, dryness, laceration, lesions, lumps, rash, wounds, others Allergic/Immunocompromised: denies: Difficulty Healing, Frequent Infections, Hives, Itching, others Hematologic/Lymphatic: denies: anemia, blood clots, easy bleeding, easy bruising, swollen glands, others Endocrine: denies: excessive hunger, excessive sweating, excessive thirst, excessive urination, flushing, intolerance to cold, intolerance to heat, unexplained weight gain, unexplained weight loss, others Psychiatric: denies: anxiety, bipolar disorder, depression, hopeless, panic disorder, schizophrenia, sleepless, suicidal, others All Other Systems: Reviewed and Negative Physical Exam General Appearance: Moderate Distress HEENT: Normal ENT Inspection, Pharynx Normal, TMs Normal Neck: Full Range of Motion, Non-Tender, Normal, Normal Inspection Respiratory: Chest Non-Tender, Decreased Breath Sounds, No Accessory Muscle Use, Respiratory Distress, Wheezing Cardiovascular: No Edema, No JVD, No Murmur, No Gallop, Normal Peripheral Pulses, Regular Rate/Rhythm Breast Exam: Deferred Gastrointestinal: No Organomegaly, Non Tender, No Pulsatile Mass, Normal Bowel Sounds, Soft Genitalia: Deferred Pelvic: Deferred Rectal: Deferred Extremities: No calf tenderness, Normal capillary refill, No pedal edema, Other (Right BKA) Musculoskeletal : Apperance: Normal Neurologic: Alert, customer business manager II-XII nml as Tested, No Motor Deficits, Normal Affect, Normal Mood, No Sensory Deficits Cerebellar Function: Normal Reflexes: Normal Skin: Dry, Normal Color, Warm Lymphatic: No Adenopathy EKG EKG : Pulse Rate (adult): 96 [place]: Normal Cardiac Rhythm: NSR Block: None Hypertrophy: LAE ST: Normal Was a procedure done? Was a procedure done?: No Differential Dx Differential Diagnosis: Bronchitis, CHF, COPD, Myocardial infarction, Pneumonia, Pulmonary Embolism, Respiratory Distress Comments covid, influenza a and b, X-Ray, Labs, Meds, VS Vital Signs Date Time Temp Pulse Resp B/P (MAP) Pulse Ox O2 Delivery O2 Flow Rate FiO2 09/17/24 17:34 20 96 Nasal Cannula* 2 28 09/17/24 17:14 96 09/17/24 17:13 96 09/17/24 17:06 18 95 Nasal Cannula* 4 36 09/17/24 16:48 97.7 101 26 285/97 (159) 94 Lab Test 09/17/24 17:17 Range/Units White Blood Count 14.3 H 4.4-10.8 10^3/uL Red Blood Count 5.54 4.5-5.90 10^6/uL Hemoglobin 16.4 13.5-17.5 g/dL Hematocrit 49.3 41.0-53.0 % Mean Corpuscular Volume 88.9 80.0-100.0 fL Mean Corpuscular Hemoglobin 29.6 28.0-32.0 pg Mean Corpuscular Hemoglobin Concent 33.3 32.0-36.0 g/dL Red Cell Distribution Width 14.5 H 11.8-14.3 % Platelet Count 289 140-450 10^3/uL Mean Platelet Volume 7.8 6.9-10.8 fL Neutrophils (%) (Auto) 71.3 37.0-80.0 % Lymphocytes (%) (Auto) 21.3 10.0-50.0 % Monocytes (%) (Auto) 4.4 0.0-12.0 % Eosinophils (%) (Auto) 2.4 0.0-7.0 % Basophils (%) (Auto) 0.6 0.0-2.0 % Neutrophils # (Auto) 10.2 H 1.6-8.6 10 ^3/uL Lymphocytes # (Auto) 3.0 0.4-5.4 10 ^3/uL Monocytes # (Auto) 0.6 0-1.3 10 ^3/uL Eosinophils # (Auto) 0.3 0-0.8 10 ^3/uL Basophils # (Auto) 0.1 0-0.2 10 ^3/uL Nucleated Red Blood Cells 0.1 % Sodium Level 142 136-145 mmol/L Potassium Level 3.5 3.5-5.1 mmol/L Chloride Level 105 98-107 mmol/L Carbon Dioxide Level 28 20-31 mmol/L Anion Gap 9 5-15 Blood Urea Nitrogen 22 9-23 mg/dL Creatinine 1.31 H 0.700-1.30 mg/dL Glomerular Filtration Rate Calc 61 >90 mL/min BUN/Creatinine Ratio 16.8 10.0-20.0 Serum Glucose 218 H 74-106 mg/dL Calcium Level 8.4 L 8.7-10.4 mg/dL Troponin I High Sensitivity 18 </=54 ng/L B-Type Natriuretic Peptide Pending Current Medications Medications (Trade) Dose Ordered Sig/Marlo Route Start Time Stop Time Status Last Admin Methylprednisolone Sodium Succinate (Solu Medrol) 125 mg ONCE ONCE IV 09/17/24 17:00 09/17/24 17:01 DC 09/17/24 17:31 Ipratropium [place] (Atrovent Medneb) 1 mg ONCE ONCE N 09/17/24 17:00 09/17/24 17:01 DC 09/17/24 17:06 Albuterol (Ventolin Medneb) 10 mg ONCE ONCE [facility] 09/17/24 17:00 09/17/24 17:01 DC 09/17/24 17:06 EXAM: XR Chest, 1 View IMPRESSION: 1. Bibasilar atelectasis or pneumonia. 2. Pulmonary venous congestion. IV Hep-Lock was established. The patient was given a breathing treatment of albuterol and Atrovent. The patient was given Solu-Medrol 125 mg IV push The patient's CBC shows an elevated white blood cell count of 14.3 The rest of the CBC is within normal limits The chemistry panel shows hyperglycemia at 218 The troponin level is negative At this time, the patient was being admitted with a diagnosis of COPD exacerbation. We have discussed the findings with the patient and he is in agreement with the management. Images Reviewed?: Images reviewed and evaluated by me Time of 1ST Reevaluation: 17:40 Reevaluation 1ST: Unchanged Patient Education/Counseling: Diagnosis, Treatment, Prognosis Family Education/Counseling: No Family Present Additional Information - I reviewed the following notes from patient's past medical encounters: - The following tests were ordered, and results were reviewed by me: (Labs, X- Ray, EKG): troponin x3, cbc, ua, chest x-ray, ekgx1, bmp, covid test, influenza a and b, - Additional information was gathered from interviewing the following [facility] Historian: (Family, Other Providers, EMT): ems - I reviewed and agreed with the following test results read by other provider: (X-ray, CT, US): radiologist - I discussed treatments and results with medical personnel and: (consultants, family): none Departure 1 Departure Time of Disposition: 20:56 Impression: Primary Impression: COPD exacerbation Disposition: ADMITTED INPATIENT Admit to: Tele Condition: Fair Critical Care Note Critical Care Time?: Yes (35 min-critical care time only) Stability Stability form required: Yes Unstable for transfer: Telemetry monitoring (Telemetry monitoring required), ED Physician Assesment (Clinical assesment) Heart Score Heart Score: Heart Score Response (Comments) Value History Slightly Suspicious 0 EKG Normal 0 Age 45-64 1 Risk Factors >3 or Hx ASHD 2 Troponin Normal limit 0 Total 3 I personally scribed for STONEY HERNÁNDEZ MD ([email or web address]) on 09/17/24 at 17:10. Electronically submitted by Grisel Haney ([employer]). I personally scribed for STONEY HERNÁNDEZ MD ([email or web address]) on 09/17/24 at 17:14. Electronically submitted by Grisel Haney ([employer]). I personally scribed for STONEY HERNÁNDEZ MD ([email or web address]) on 09/17/24 at 18:55. Electronically submitted by Grisel Haney ([employer]). STONEY HERNÁNDEZ MD Sep 17, 2024 17:10
[2024-09-17] MEDS: methylPREDNISolone SOD SUCC 125 MG/2 ML VL IV ONE (17:31)
[2024-09-17 17:34] VITALS: RESP 20; O2SAT 96
[2024-09-17 17:34] LABS: Basophils # (auto) 0.1 10 ^3/uL (0-0.2); Basophils % (auto) 0.6 % (0.0-2.0); Eosinophils # (auto) 0.3 10 ^3/uL (0-0.8); Eosinophils % (auto) 2.4 % (0.0-7.0); Hematocrit 49.3 % (41.0-53.0); Hemoglobin 16.4 g/dL (13.5-17.5); Lymphocytes % (auto) 21.3 % (10.0-50.0); Mean Corpuscular Hemoglobin 29.6 pg (28.0-32.0); Mean Corpuscular Hgb Conc. 33.3 g/dL (32.0-36.0); Mean Corpuscular Volume 88.9 fL (80.0-100.0); Monocytes # (auto) 0.6 10 ^3/uL (0-1.3); Monocytes % (auto) 4.4 % (0.0-12.0); Neutrophils # (auto) 10.2 10 ^3/uL (1.6-8.6); Neutrophils % (auto) 71.3 % (37.0-80.0); Nucleated Red Blood Cells % 0.1 %; Platelet Count (auto) 289 10^3/uL (140-450); Red Blood Cells 5.54 10^6/uL (4.5-5.90); Red Cell Distribution Width 14.5 % (11.8-14.3); White Blood Cell 14.3 10^3/uL (4.4-10.8)
[2024-09-17 17:41] LABS: Chloride 105 mmol/L (98-107); Sodium 142 mmol/L (136-145)
[2024-09-17 17:42] LABS: Anion Gap 9 (5-15); Carbon Dioxide 28 mmol/L (20-31)
[2024-09-17 17:47] LABS: BUN/Creatinine Ratio 16.8 (10.0-20.0); Blood Urea Nitrogen 22 mg/dL (9-23)
--- NOTE | 2024-09-17 18:36 | DVH ---
EXAM: XR Chest, 1 View CLINICAL INDICATION: sob TECHNIQUE: Frontal view of the chest. COMPARISON: XY CHEST PORTABLE on DOS: 06/18/23, XY CHEST PORTABLE on DOS: 12/13/22 FINDINGS: LUNGS AND PLEURAL SPACES: Bibasilar atelectasis or pneumonia. Pulmonary venous congestion. No pne umothorax. HEART: Unremarkable. No cardiomegaly. MEDIASTINUM: Unremarkable. Normal mediastinal contour. BONES/JOINTS: Unremarkable. No acute fracture. OTHER FINDINGS: . . .. . . . IMPRESSION: 1. Bibasilar atelectasis or pneumonia. 2. Pulmonary venous congestion.
[2024-09-17 18:37] LABS: Calcium 8.4 mg/dL (8.7-10.4); Glucose 218 mg/dL (74-106); Potassium 3.5 mmol/L (3.5-5.1)
--- NOTE | 2024-09-17 19:08 | ECG ---
[facility] Test Date: 2024-09-17 Test Time: 16:58:36 Pat Name: NEPTALI JAMIL Department: ED Room: 0285 Gender: M Associate: ELAINE : 1960 Requested By: STONEY HERNÁNDEZ Order Number: [id number] Reading MD: Sam Shell Measurements Intervals [place] Rate: 96 P: 77 DC: 150 QRS: 97 QRSD: 100 T: 60 QT: 379 QTc: 479 Interpretive Statements Sinus tachycardia Multiple premature complexes, vent & supraven Probable left atrial enlargement Consider right ventricular hypertrophy Consider left ventricular hypertrophy Borderline T abnormalities, lateral leads Borderline prolonged QT interval Electronically Signed On 09-18-2024 22:19:56 PST by Sam Shell Please click the below link to view image of tracing.
[2024-09-17] MEDS ORDERED: ONDANSETRON HCL 4 MG/2 ML VIAL IV PRN (20:30)
[2024-09-17] MEDS ORDERED: DEXTROSE (50%) 50ML SYRG IV PRN (20:30)
[2024-09-17] MEDS ORDERED: ACETAMINOPHEN 325 MG TAB PO PRN (20:30)
[2024-09-17 21:01] VITALS: BP 100/66; PULSE 88; RESP 20; O2SAT 94
[2024-09-17] MEDS: GABAPENTIN 100 MG CAP PO SCH (21:06)
[2024-09-17] MEDS: ATORVASTATIN 20 MG TAB PO SCH (21:06)
[2024-09-17] MEDS: AZITHROMYCIN 500MG/ 250ML 250 ML IV ONE (21:06)
--- NOTE | 2024-09-17 21:56 | DVHHP2 ---
History of Present Illness Reason for Visit: Shortness for breath History of Present Illness 63-year-old male presents for evaluation of shortness for breath. Patient reports a day history of worsening shortness for despite taking his breathing treatments at home. Denies chest pain. No fever or chills. Cough. Past Medical History Dyslipidemia, hypertension, CHF, diabetes mellitus, COPD Past Surgical History Appendectomy, right BKA, PTCA Family History Diabetes mellitus Smoke: <1 pack per day ALCOHOL: none Drugs: None Lives: with Family Review of Systems Review of Systems Review of systems are currently negative otherwise addressed in HPI. Allergies: Coded Allergies: NO KNOWN ALLERGIES (Unverified , 08/06/23) Medications Current Medications Medications Dose Ordered Sig/Marlo Route Start Time Stop Time Status Last Admin Dose Admin Albuterol 2.5 mg Q6HPRN PRN NEB 09/17/24 20:30 Atorvastatin Calcium 40 mg HS PO 09/17/24 22:00 09/17/24 21:06 40 MG Clopidogrel Bisulfate 75 mg DAILY PO 09/18/24 10:00 Empaglifozin 10 mg DAILY PO 09/18/24 10:00 Furosemide 40 mg DAILY PO 09/18/24 10:00 Gabapentin 100 mg TID PO 09/17/24 22:00 09/17/24 21:06 100 MG Lisinopril 20 mg DAILY PO 09/18/24 10:00 Ipratropium [place] 0.5 mg Q6HPRN PRN NEB 09/17/24 20:30 Azithromycin 250 ml @ 125 mls/hr DAILY IV 09/18/24 10:00 Ceftriaxone Sodium 50 ml @ 100 mls/hr DAILY@09 IV 09/18/24 09:00 Diagnostic Test (Pha) 1 strip Q6HR 09/18/24 00:00 Insulin Human Regular Q6HR SC 09/18/24 00:00 Dextrose 50 ml UD PRN IV 09/17/24 20:30 Ondansetron HCl 4 mg Q4HP PRN IV 09/17/24 20:30 Acetaminophen 650 mg Q6HP PRN PO 09/17/24 20:30 Exam Vital Signs Vital Signs Date Time Temp Pulse Resp B/P (MAP) Pulse Ox O2 Delivery O2 Flow Rate FiO2 09/17/24 21:01 88 20 100/66 94 2.0 28 09/17/24 20:40 97.5 97.5 09/17/24 17:34 Nasal Cannula* Exam Gen: 63-year-old in mild distress Skin: Warm, dry, normal color and texture, no rash. HEENT: Normocephalic atraumatic, mucous membranes moist and pink. Neck: Cervical and supraclavicular nodes normal without enlargement, trachea is midline, thyroid gland is normal without masses. Pulmonary: Diminished breath sounds bilaterally Cardiac: Regular rate and rhythm. No murmur Abdomen: Soft, nontender, nondistended, bowel sounds present all 4 quadrants, no guarding, no rigidity, no organomegaly. Extremities: No cyanosis, clubbing, no edema Neuro: Cranial nerves II through XII grossly intact, normal affect and speech, no focal motor deficits. Labs/Xrays ORDERING PHYSICIAN: STONEY HERNÁNDEZ MD PROCEDURE(s): CXRP - CHEST PORTABLE REASON: sob ORDER NUMBER(s): [id number], ACCESSION NUMBER(s): [id number] EXAM: XR Chest, 1 View CLINICAL INDICATION: sob TECHNIQUE: Frontal view of the chest. COMPARISON: XY CHEST PORTABLE on DOS: 06/18/23, XY CHEST PORTABLE on DOS: 12/13/22 FINDINGS: LUNGS AND PLEURAL SPACES: Bibasilar atelectasis or pneumonia. Pulmonary venous congestion. No pneumothorax. HEART: Unremarkable. No cardiomegaly. MEDIASTINUM: Unremarkable. Normal mediastinal contour. BONES/JOINTS: Unremarkable. No acute fracture. OTHER FINDINGS: . . .. . . . IMPRESSION: 1. Bibasilar atelectasis or pneumonia. 2. Pulmonary venous congestion. Labs Test 09/17/24 17:17 Range/Units White Blood Count 14.3 H 4.4-10.8 10^3/uL Red Blood Count 5.54 4.5-5.90 10^6/uL Hemoglobin 16.4 13.5-17.5 g/dL Hematocrit 49.3 41.0-53.0 % Mean Corpuscular Volume 88.9 80.0-100.0 fL Mean Corpuscular Hemoglobin 29.6 28.0-32.0 pg Mean Corpuscular Hemoglobin Concent 33.3 32.0-36.0 g/dL Red Cell Distribution Width 14.5 H 11.8-14.3 % Platelet Count 289 140-450 10^3/uL Mean Platelet Volume 7.8 6.9-10.8 fL Neutrophils (%) (Auto) 71.3 37.0-80.0 % Lymphocytes (%) (Auto) 21.3 10.0-50.0 % Monocytes (%) (Auto) 4.4 0.0-12.0 % Eosinophils (%) (Auto) 2.4 0.0-7.0 % Basophils (%) (Auto) 0.6 0.0-2.0 % Neutrophils # (Auto) 10.2 H 1.6-8.6 10 ^3/uL Lymphocytes # (Auto) 3.0 0.4-5.4 10 ^3/uL Monocytes # (Auto) 0.6 0-1.3 10 ^3/uL Eosinophils # (Auto) 0.3 0-0.8 10 ^3/uL Basophils # (Auto) 0.1 0-0.2 10 ^3/uL Nucleated Red Blood Cells 0.1 % Sodium Level 142 136-145 mmol/L Potassium Level 3.5 3.5-5.1 mmol/L Chloride Level 105 98-107 mmol/L Carbon Dioxide Level 28 20-31 mmol/L Anion Gap 9 5-15 Blood Urea Nitrogen 22 9-23 mg/dL Creatinine 1.31 H 0.700-1.30 mg/dL Glomerular Filtration Rate Calc 61 >90 mL/min BUN/Creatinine Ratio 16.8 10.0-20.0 Serum Glucose 218 H 74-106 mg/dL Calcium Level 8.4 L 8.7-10.4 mg/dL Troponin I High Sensitivity 18 </=54 ng/L B-Type Natriuretic Peptide 463.13 0-100 pg/mL Assessment/Plan Assessment/Plan Assessment Acute on chronic respiratory failure COPD exacerbation Questionable pneumonia Diabetes mellitus Hypertension Leukocytosis Congestive heart failure Acute kidney injury Plan Admit the patient to telemetry to the hospitalist Rocephin/azithromycin Med nebs Resume home medications Continue treatment per orders. Plan discussed with: Patient My Orders Orders - ZACARIAS VILLANUEVA Procedure Category Date Status Time Albuterol Medneb PHA 09/17/24 In Process (Ventolin Medneb) 20:30 Atorvastatin (Lipitor) PHA 09/17/24 In Process 22:00 Clopidogrel Bisulfate PHA 09/18/24 In Process (Plavix) 10:00 Empagliflozin PHA 09/18/24 In Process (Jardiance) 10:00 Furosemide Tablet PHA 09/18/24 In Process (Lasix Tablet) 10:00 Gabapentin Capsule PHA 09/17/24 In Process (Neurontin Capsule) 22:00 Lisinopril Tablet PHA 09/18/24 In Process (Zestril Tablet) 10:00 Ipratropium Medneb PHA 09/17/24 In Process (Atrovent Medneb) 20:30 Azithromycin 500mg/ PHA 09/18/24 In Process 250ml (Zithromax 50 10:00 Azithromycin 500mg/ PHA 09/17/24 In Process 250ml (Zithromax 50 20:30 Ceftriaxone 1gm/50ml PHA 09/18/24 In Process D5w (Rocephin) 09:00 Glucose Blood PHA 09/18/24 In Process (Accu-Chek Comfort 00:00 Insulin R (Human) PHA 09/18/24 In Process (Insulin R) 00:00 Dextrose 50% Syringe PHA 09/17/24 In Process 20:30 Admit ADMIT 09/17/24 Transmitted 20:21 Ondansetron Hcl PHA 09/17/24 In Process (Zofran) 20:30 Complete Blood Count LAB 09/18/24 Verified 04:00 Cardiac DIET 09/18/24 Transmitted Diet-2gna,Lofat,Lochol Breakfast Echo 2d Mode Cardiac US 09/17/24 Logged DOP 20:21 Condition: Stable STEF 09/17/24 In Process 20:21 Acetaminophen Tablet PHA 09/17/24 In Process (Tylenol Tablet) 20:30 Bedrest With Bathroom STEF 09/17/24 In Process Privileg 20:21 Date of Service: Sep 17, 2024 Billing Provider: ZACARIAS VILLANUEVA Common Visit Codes: [id number] INP/OBS CARE (HIGH) ZACARIAS VILLANUEVA Sep 17, 2024 21:56
[2024-09-18] VITALS (10 sets, daily range): BP systolic 115–164; BP diastolic 58–85; PULSE 61–93; RESP 16–20; TEMP 97.3–98; O2SAT 95–99
[2024-09-18] MEDS: ACCU-CHEK COMFORT CURVE STRIP VI SCH ×2 (00:14→17:00)
[2024-09-18] MEDS: InsuLIN REG 1unit/0.01ml Soln (100units/ml) SC SCH ×3 (00:14→22:00)
[2024-09-18 05:35] LABS: Basophils # (auto) 0 10 ^3/uL (0-0.2); Basophils % (auto) 0.2 % (0.0-2.0); Eosinophils # (auto) 0 10 ^3/uL (0-0.8); Hematocrit 44.3 % (41.0-53.0); Hemoglobin 14.4 g/dL (13.5-17.5); Lymphocytes # (auto) 0.6 10 ^3/uL (0.4-5.4); Lymphocytes % (auto) 4.7 % (10.0-50.0); Mean Corpuscular Hemoglobin 29.1 pg (28.0-32.0); Mean Corpuscular Hgb Conc. 32.6 g/dL (32.0-36.0); Mean Corpuscular Volume 89.3 fL (80.0-100.0); Monocytes # (auto) 0.2 10 ^3/uL (0-1.3); Monocytes % (auto) 1.8 % (0.0-12.0); Neutrophils # (auto) 11.9 10 ^3/uL (1.6-8.6); Neutrophils % (auto) 93.3 % (37.0-80.0); Platelet Count (auto) 253 10^3/uL (140-450); Red Blood Cells 4.97 10^6/uL (4.5-5.90); Red Cell Distribution Width 14.6 % (11.8-14.3); White Blood Cell 12.7 10^3/uL (4.4-10.8)
[2024-09-18] MEDS: cefTRIAXone 1GM/50ML D5W 50 ML IV SCH (08:47)
[2024-09-18] MEDS: CLOPIDOGREL BISULFATE 75 MG TAB PO SCH (08:57)
[2024-09-18] MEDS: EMPAGLIFLOZIN 10 MG TAB PO SCH (08:57)
[2024-09-18] MEDS: LISINOPRIL 20 MG TAB PO SCH (08:58)
[2024-09-18] MEDS: FUROSEMIDE 40 MG TAB PO SCH (08:58)
[2024-09-18] MEDS: AZITHROMYCIN 500MG/ 250ML 250 ML IV SCH (10:00)
[2024-09-18] MEDS ORDERED: DEXTROSE (50%) 50ML SYRG IV PRN (12:45)
--- NOTE | 2024-09-18 13:43 | DVHPN2 ---
Subjective Patient continues to report having some shortness of breath, but does report a has improved since yesterday. Reviewed: Care Plan, H&P, Labs, Medications Changes from previous H/P or p: No Changes General: Per HPI Objective Vitals Vital Signs Date Time Temp Pulse Resp B/P (MAP) Pulse Ox O2 Delivery O2 Flow Rate FiO2 09/18/24 09:11 96 Nasal Cannula* 2 28 09/18/24 09:00 97.5 86 18 138/63 (88) 97.5 Intake/Output Intake and Output 09/18/24 07:00 Intake Total 400 ml Balance 400 ml Intake Oral 400 ml # Voids 1 # Bowel Movements 1 General Appearance: Alert, Oriented X3, Cooperative, mild distress HEENT: Atraumatic, PERRLA Neck: Carotid [place] Cardiovascular: Normal S1, Normal S2 Abdomen: Normal bowel sounds Musculoskeletal: Normal sensory function, Normal motor function Psych/Mental Status: Mental status NL, Mood NL Medications Current Medications Medications Dose Ordered Sig/Marlo Route Start Time Stop Time Status Last Admin Dose Admin Albuterol 2.5 mg Q6HPRN PRN NEB 09/17/24 20:30 Atorvastatin Calcium 40 mg HS PO 09/17/24 22:00 09/17/24 21:06 40 MG Clopidogrel Bisulfate 75 mg DAILY PO 09/18/24 10:00 09/18/24 08:57 75 MG Empaglifozin 10 mg DAILY PO 09/18/24 10:00 09/18/24 08:57 10 MG Furosemide 40 mg DAILY PO 09/18/24 10:00 09/18/24 08:58 40 MG Gabapentin 100 mg TID PO 09/17/24 22:00 09/18/24 13:35 100 MG Lisinopril 20 mg DAILY PO 09/18/24 10:00 09/18/24 08:58 20 MG Ipratropium [place] 0.5 mg Q6HPRN PRN NEB 09/17/24 20:30 Azithromycin 250 ml @ 125 mls/hr DAILY IV 09/18/24 10:00 09/18/24 10:00 125 MLS/HR Ceftriaxone Sodium 50 ml @ 100 mls/hr DAILY@09 IV 09/18/24 09:00 09/18/24 08:47 100 MLS/HR Ondansetron HCl 4 mg Q4HP PRN IV 09/17/24 20:30 Acetaminophen 650 mg Q6HP PRN PO 09/17/24 20:30 Diagnostic Test (Pha) 1 strip ACHS 09/18/24 17:00 UNV Insulin Human Regular HS SC 09/18/24 22:00 UNV Insulin Human Regular AC SC 09/18/24 17:00 UNV Dextrose 50 ml UD PRN IV 09/18/24 12:45 UNV Laboratory Results Laboratory Tests 09/17/24 17:17 09/18/24 04:56 Chemistry Test 09/17/24 17:17 Calcium Level 8.4 mg/dL (8.7-10.4) L Cardiac Markers Test 09/17/24 17:17 B-Type Natriuretic Peptide 463.13 pg/mL (0-100) Labs and/or images reviewed: Labs reviewed by me, Image(s) reviewed by me Assessment/Plan Assessment/Plan Impression: -acute hypoxic respiratory failure -community-acquired pneumonia, probable Gram-positive/Gram-negative etiology -rule out sepsis -acute decompensated diastolic heart failure,HefPef, preserved ejection fraction -diabetes mellitus, uncontrolled -tobacco abuse -COPD -acute kidney injury,? Vasomotor nephropathy Plan: -O2 supplementation to keep saturation greater than 92% -continue antibiotic therapy with Rocephin and azithromycin -bronchodilators -regular insulin sliding scale, increase to moderate scale -IV diuresis -echocardiogram: Preliminary results reviewed -repeat labs, chest x-ray in a.m. Total time spent with patient discussing and formulating plan of care: 35 minutes. Smoking cessation education: 10 minutes spent with the patient This medical document was created using an electronic medical record system with Encover dictation system. Although this document has been carefully reviewed, there may still be some phonetic and typographical errors. These areas are purely typographical due to imperfections of the software programs, and do not reflect any compromise in the patient's medical care. Plan discussed with: Patient, Other (RN) My Orders Orders - BARTOLOME MICHAEL BREWING TECHNICIAN Procedure Category Date Status Time Glucose Blood PHA 09/18/24 Logged (Accu-Chek Comfort 17:00 Insulin R (Human) PHA 09/18/24 Logged (Insulin R) 22:00 Insulin R (Human) PHA 09/18/24 Logged (Insulin R) 17:00 Dextrose 50% Syringe PHA 09/18/24 Logged 12:45 Basic Metabolic Panel LAB 09/19/24 Verified 04:00 Complete Blood Count LAB 09/19/24 Verified 04:00 Date of Service: Sep 18, 2024 Billing Provider: BARTOLOME MICHAEL NP Common Visit Codes: [id number] INP/OBS CARE(HIGH) BARTOLOME MICHAEL NP Sep 18, 2024 13:43
--- NOTE | 2024-09-18 15:10 | DVHSR ---
APPROVED REPORT EXAM: Two-dimensional and M-mode echocardiogram with Doppler and color Doppler. Blood Pressure: 138/68 mmHg INDICATION EF RISK FACTORS Height: 5'10", Weight: 165 DIMENSIONS LVDd4.2 (3.8-5.7cm)LA (2D)4.0 (1.9-4.0cm)Aortic Root3.0 (2.0-3.7cm) LVDs3.2 (2.5-4.0cm)LA (MM) (1.9-4.0cm)Aortic Cusp Exc1.8 (1.5-2.0cm) EF (%) 47.0 (55-70%)Rt. Atrium3.8 (1.9-4.0cm)Asc. Aorta cm IVSd1.4 (0.7-1.1cm)RV (D) (1.8-2.4cm) PWd1.1 (0.7-1.1cm) Mitral Valve MitralMitral Stenosis E wave1.58m/sMV Mean GR.mmHg E/A ratio0.02D MVAcm2 Aortic Valve Aortic ValveAortic Stenosis V10.93m/[place] Mean GR.2mmHg V20.94m/[place] Peak GR.3mmHg LVOT Diameter2.1 (1.8-2.4cm)Doppler AVA3.43cm2 Other Information Quality : Technically LimitedRhythm : Technically limited study due to body habitus. Conclusion lvef 50% by visual estimate low normal normal RV function normal atria mild to moderate mitral regurg small posterior pericardium effusion no HD compromise
[2024-09-18] MEDS: amLODIPine BESYLATE 5 MG TAB PO ONE (23:07)
[2024-09-19] VITALS (11 sets, daily range): BP systolic 101–212; BP diastolic 54–100; PULSE 71–121; RESP 17–28; TEMP 97.7–98.5; O2SAT 91–98
[2024-09-19 03:09] LABS: Urine Bacteria None Seen /hpf (None Seen)
--- NOTE | 2024-09-19 03:36 | ECG ---
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
[2024-09-19] MEDS: IPRATROPIUM BROM 0.5 MG/2.5ML INH SOL NEB PRN (03:56)
[2024-09-19] MEDS: ALBUTEROL SULF 2.5 MG/0.5ML(0.5%) NEB SOLN NEB PRN (03:56)
[2024-09-19 03:57] LABS: Urine Blood 1+ /uL (Negative); Urine Clarity Clear (Clear); Urine Color Light-Yellow (Yellow); Urine Protein, UAD 3+ (Negative); Urine Specific Gravity 1.019 (1.001-1.035); Urine Squamous Epithelial Cell None Seen /hpf (<5); Urine Urobilinogen Normal (Negative); Urine WBC 2 /HPF (0-3)
[2024-09-19] MEDS: CARVEDILOL 12.5 MG TAB PO ONE (04:08)
[2024-09-19] MEDS: amLODIPine BESYLATE 5 MG TAB PO ONE (04:08)
[2024-09-19 04:09] LABS: COVID19 ANTIGEN SOFIA FIA NEGATIVE (NEGATIVE); Rapid Influenza A Negative (Negative); Rapid Influenza B Negative (Negative)
[2024-09-19 05:17] LABS: Anion Gap 10 (5-15); Basophils # (auto) 0.1 10 ^3/uL (0-0.2); Basophils % (auto) 0.3 % (0.0-2.0); Carbon Dioxide 27 mmol/L (20-31); Chloride 102 mmol/L (98-107); Eosinophils # (auto) 0.2 10 ^3/uL (0-0.8); Eosinophils % (auto) 0.6 % (0.0-7.0); Hematocrit 45.5 % (41.0-53.0); Hemoglobin 15.2 g/dL (13.5-17.5); Lymphocytes # (auto) 3.5 10 ^3/uL (0.4-5.4); Lymphocytes % (auto) 13.1 % (10.0-50.0); Mean Corpuscular Hemoglobin 29.8 pg (28.0-32.0); Mean Corpuscular Hgb Conc. 33.4 g/dL (32.0-36.0); Mean Corpuscular Volume 89.2 fL (80.0-100.0); Monocytes # (auto) 1.6 10 ^3/uL (0-1.3); Monocytes % (auto) 6.1 % (0.0-12.0); Neutrophils # (auto) 21.2 10 ^3/uL (1.6-8.6); Neutrophils % (auto) 79.9 % (37.0-80.0); Platelet Count (auto) 293 10^3/uL (140-450); Potassium 3.6 mmol/L (3.5-5.1); Red Cell Distribution Width 14.4 % (11.8-14.3); Sodium 139 mmol/L (136-145); White Blood Cell 26.6 10^3/uL (4.4-10.8)
[2024-09-19 05:23] LABS: Glucose 93 mg/dL (74-106)
[2024-09-19 05:59] LABS: Blood Urea Nitrogen 35 mg/dL (9-23); Calcium 8.5 mg/dL (8.7-10.4)
[2024-09-19] MEDS: hydrALAZINE HCL 20 MG/ML VL IV PRN (06:16)
[2024-09-19] MEDS: CARVEDILOL 12.5 MG TAB PO SCH (09:50)
[2024-09-19] MEDS: PIPERACILLIN-TAZOB 3.375GM 100 ML IV SCH (14:38)
--- NOTE | 2024-09-19 15:52 | DVHPN2 ---
Subjective Patient continues to report having some shortness of breath, but does report a has improved since yesterday. Reviewed: Care Plan, H&P, Labs, Medications Changes from previous H/P or p: No Changes General: Per HPI Objective Vitals Vital Signs Date Time Temp Pulse Resp B/P (MAP) Pulse Ox O2 Delivery O2 Flow Rate FiO2 09/19/24 13:00 97.8 77 18 101/54 (70) 93 97.8 09/19/24 09:13 Nasal Cannula* 3 32 Intake/Output Intake and Output 09/19/24 07:00 Intake Total 1450 ml Output Total 2700 ml Balance -1250 ml Intake Oral 1450 ml Output Urine Total 2700 ml # Bowel Movements 1 General Appearance: Alert, Oriented X3, Cooperative, mild distress HEENT: Atraumatic, PERRLA Neck: Carotid [place]its [place] Cardiovascular: Normal S1, Normal S2 Abdomen: Normal bowel sounds Musculoskeletal: Normal sensory function, Normal motor function Skin: Dry, Intact Psych/Mental Status: Mental status NL, Mood NL Medications Current Medications Medications Dose Ordered Sig/Marlo Route Start Time Stop Time Status Last Admin Dose Admin Albuterol 2.5 mg Q6HPRN PRN NEB 09/17/24 20:30 09/19/24 03:56 2.5 MG Atorvastatin Calcium 40 mg HS PO 09/17/24 22:00 09/18/24 21:48 40 MG Clopidogrel Bisulfate 75 mg DAILY PO 09/18/24 10:00 09/19/24 09:49 75 MG Empaglifozin 10 mg DAILY PO 09/18/24 10:00 09/19/24 09:50 10 MG Furosemide 40 mg DAILY PO 09/18/24 10:00 09/19/24 09:56 40 MG Gabapentin 100 mg TID PO 09/17/24 22:00 09/19/24 14:33 100 MG Lisinopril 20 mg DAILY PO 09/18/24 10:00 09/19/24 09:56 20 MG Ipratropium [place] 0.5 mg Q6HPRN PRN NEB 09/17/24 20:30 09/19/24 03:56 0.5 MG Azithromycin 250 ml @ 125 mls/hr DAILY IV 09/18/24 10:00 09/19/24 09:48 125 MLS/HR Ondansetron HCl 4 mg Q4HP PRN IV 09/17/24 20:30 Acetaminophen 650 mg Q6HP PRN PO 09/17/24 20:30 Diagnostic Test (Pha) 1 strip ACHS 09/18/24 17:00 09/19/24 11:29 1 STRIP Insulin Human Regular HS SC 09/18/24 22:00 09/18/24 22:00 4 UNITS Insulin Human Regular AC SC 09/18/24 17:00 09/19/24 11:41 9 UNITS Dextrose 50 ml UD PRN IV 09/18/24 12:45 Carvedilol 12.5 mg Q12HR PO 09/19/24 10:00 09/19/24 09:50 12.5 MG Hydralazine HCl 10 mg Q6HP PRN IV 09/19/24 04:00 09/19/24 06:16 10 MG Piperacillin Sod/ Tazobactam Sod 100 ml @ 25 mls/hr Q8HR IV 09/19/24 14:00 09/19/24 14:38 25 MLS/HR Laboratory Results Laboratory Tests 09/19/24 03:00 Chemistry Test 09/19/24 03:00 Calcium Level 8.5 mg/dL (8.7-10.4) L Urinalysis Test 09/19/24 02:30 Urine Color Light-yellow (Yellow) Urine Clarity Clear (Clear) Urine pH 6.0 (5.0-9.0) Urine Specific [place] 1.019 (1.001-1.035) Urine Protein 3+ (Negative) H Urine Ketones Negative (Negative) Urine Blood 1+ /uL (Negative) H Urine Nitrite Negative (Negative) Urine Bilirubin Negative (Negative) Urine Urobilinogen Normal mg/dL (Negative) Urine Leukocyte Esterase Negative /uL (Negative) Urine RBC 2 /hpf (0 - 3) Urine Microscopic WBC 2 /HPF (0-3) Urine Squamous Epithelial Cells None seen /hpf (<5) Urine Bacteria None seen /hpf (None Seen) Urine Glucose 4+ mg/dL (Normal) H Labs and/or images reviewed: Labs reviewed by me, Image(s) reviewed by me Assessment/Plan Assessment/Plan Impression: -acute hypoxic respiratory failure -community-acquired pneumonia, probable Gram-positive/Gram-negative etiology -rule out sepsis -acute decompensated diastolic heart failure,HefPef, preserved ejection fraction -diabetes mellitus, uncontrolled -tobacco abuse -COPD -acute kidney injury,? Vasomotor nephropathy Plan: Events: Patient has increase in white blood cell count. Reports having period of dyspnea this a.m.. Blood pressure improved. -Stop Lasix given systolic blood pressure at 100. -O2 supplementation to keep saturation greater than 92% -continue antibiotic therapy with Rocephin and azithromycin -bronchodilators -regular insulin sliding scale, increase to moderate scale -echocardiogram: Preliminary results reviewed -repeat labs, chest x-ray in a.m. Total time spent with patient discussing and formulating plan of care: 35 minutes. Smoking cessation education: 10 minutes spent with the patient This medical document was created using an electronic medical record system with Flashnotes dictation system. Although this document has been carefully reviewed, there may still be some phonetic and typographical errors. These areas are purely typographical due to imperfections of the software programs, and do not reflect any compromise in the patient's medical care. Plan discussed with: Patient, Other (RN) My Orders Orders - BARTOLOME MICHAEL NP Procedure Category Date Status Time Piperacillin-Tazob PHA 09/19/24 In Process 3.375gm (Zosyn 3.375g 14:00 Basic Metabolic Panel LAB 09/20/24 Verified 04:00 Chest Portable XY 09/20/24 Logged 04:00 Date of Service: Sep 19, 2024 Billing Provider: BARTOLOME MICHAEL NP Common Visit Codes: [id number] INP/OBS CARE(HIGH) BARTOLOME MICHAEL NP Sep 19, 2024 15:52
[2024-09-20] VITALS (13 sets, daily range): BP systolic 121–155; BP diastolic 66–81; PULSE 68–84; RESP 14–20; TEMP 97.1–98; O2SAT 93–100
[2024-09-20] MEDS: IPRATROPIUM BROM 0.5 MG/2.5ML INH SOL NEB SCH (00:22)
[2024-09-20] MEDS: ALBUTEROL SULF 2.5 MG/0.5ML(0.5%) NEB SOLN NEB SCH (00:22)
--- NOTE | 2024-09-20 05:47 | DVH ---
CHEST RADIOGRAPH Indication: pna Technique: Frontal view of the chest. Comparison: XY CHEST PORTABLE on DOS: 09/17/24, XY CHEST PORTABLE on DOS: 06/18/23, XY CHEST PORTABLE on DOS: 12/13/22, XY CHEST PORTABLE on DOS: 09/17/24 FINDINGS: LUNGS AND PLEURAL SPACES: Bibasilar atelectasis or pneumonia. Pulmonary venous congestion. No pne umothorax. HEART: Unremarkable. No cardiomegaly. MEDIASTINUM: Unremarkable. Normal mediastinal contour. BONES/JOINTS: Unremarkable. No acute fracture. IMPRESSION: 1. Bibasilar atelectasis or pneumonia. 2. Pulmonary venous congestion.
[2024-09-20 06:42] LABS: Basophils # (auto) 0.1 10 ^3/uL (0-0.2); Basophils % (auto) 0.4 % (0.0-2.0); Eosinophils # (auto) 0.4 10 ^3/uL (0-0.8); Hematocrit 41.4 % (41.0-53.0); Hemoglobin 13.6 g/dL (13.5-17.5); Lymphocytes # (auto) 2.6 10 ^3/uL (0.4-5.4); Lymphocytes % (auto) 14.1 % (10.0-50.0); Mean Corpuscular Hemoglobin 29.1 pg (28.0-32.0); Mean Corpuscular Hgb Conc. 32.8 g/dL (32.0-36.0); Mean Corpuscular Volume 88.8 fL (80.0-100.0); Monocytes # (auto) 1.3 10 ^3/uL (0-1.3); Monocytes % (auto) 6.8 % (0.0-12.0); Neutrophils # (auto) 14.2 10 ^3/uL (1.6-8.6); Neutrophils % (auto) 76.7 % (37.0-80.0); Nucleated Red Blood Cells % 0.1 %; Platelet Count (auto) 265 10^3/uL (140-450); Red Blood Cells 4.66 10^6/uL (4.5-5.90); Red Cell Distribution Width 14.3 % (11.8-14.3); White Blood Cell 18.5 10^3/uL (4.4-10.8)
[2024-09-20 06:45] LABS: Anion Gap 9 (5-15); Carbon Dioxide 25 mmol/L (20-31); Chloride 102 mmol/L (98-107)
[2024-09-20 06:51] LABS: BUN/Creatinine Ratio 23.6 (10.0-20.0); Glucose 100 mg/dL (74-106)
[2024-09-20 06:52] LABS: Blood Urea Nitrogen 41 mg/dL (9-23); Calcium 8.2 mg/dL (8.7-10.4); Sodium 136 mmol/L (136-145)
--- NOTE | 2024-09-20 19:07 | DVHPN2 ---
Subjective in bed resting Reviewed: Care Plan, H&P, Labs, Medications Changes from previous H/P or p: No Changes General: Per HPI Objective Vitals Vital Signs Date Time Temp Pulse Resp B/P (MAP) Pulse Ox O2 Delivery O2 Flow Rate FiO2 09/20/24 17:00 97.3 76 20 130/75 (93) 98 97.3 09/20/24 12:02 Nasal Cannula* 3 32 Intake/Output Intake and Output 09/20/24 07:00 Intake Total 1600 ml Output Total 2100 ml Balance -500 ml Intake Oral 1100 ml IV Total 500 ml Output Urine Total 2100 ml General Appearance: Alert, Oriented X3, Cooperative, mild distress HEENT: Atraumatic, PERRLA Neck: Carotid [place] Cardiovascular: Normal S1, Normal S2 Abdomen: Normal bowel sounds Musculoskeletal: Normal sensory function, Normal motor function Skin: Dry, Intact Psych/Mental Status: Mental status NL, Mood NL Medications Current Medications Medications Dose Ordered Sig/Marlo Route Start Time Stop Time Status Last Admin Dose Admin Albuterol 2.5 mg Q6HPRN PRN NEB 09/17/24 20:30 09/19/24 22:10 2.5 MG Atorvastatin Calcium 40 mg HS PO 09/17/24 22:00 09/19/24 22:13 40 MG Clopidogrel Bisulfate 75 mg DAILY PO 09/18/24 10:00 09/20/24 09:25 75 MG Empaglifozin 10 mg DAILY PO 09/18/24 10:00 09/20/24 09:24 10 MG Gabapentin 100 mg TID PO 09/17/24 22:00 09/20/24 13:52 100 MG Lisinopril 20 mg DAILY PO 09/18/24 10:00 09/20/24 09:25 20 MG Ipratropium [place] 0.5 mg Q6HPRN PRN NEB 09/17/24 20:30 09/19/24 22:10 0.5 MG Azithromycin 250 ml @ 125 mls/hr DAILY IV 09/18/24 10:00 09/20/24 09:24 125 MLS/HR Ondansetron HCl 4 mg Q4HP PRN IV 09/17/24 20:30 Acetaminophen 650 mg Q6HP PRN PO 09/17/24 20:30 Diagnostic Test (Pha) 1 strip ACHS 09/18/24 17:00 09/20/24 16:59 1 STRIP Insulin Human Regular HS SC 09/18/24 22:00 09/19/24 22:30 2 UNITS Insulin Human Regular AC SC 09/18/24 17:00 09/20/24 17:21 2 UNITS Dextrose 50 ml UD PRN IV 09/18/24 12:45 Carvedilol 12.5 mg Q12HR PO 09/19/24 10:00 09/20/24 09:25 12.5 MG Hydralazine HCl 10 mg Q6HP PRN IV 09/19/24 04:00 09/19/24 06:16 10 MG Piperacillin Sod/ Tazobactam Sod 100 ml @ 25 mls/hr Q8HR IV 09/19/24 14:00 09/20/24 13:52 25 MLS/HR Albuterol 2.5 mg Q6HR NEB 09/20/24 00:00 09/20/24 12:01 2.5 MG Ipratropium [place] 0.5 mg Q6HR NEB 09/20/24 00:00 09/20/24 12:02 0.5 MG Laboratory Results Laboratory Tests 09/20/24 05:30 Chemistry Test 09/20/24 05:30 Calcium Level 8.2 mg/dL (8.7-10.4) L Urinalysis Test 09/19/24 02:30 Urine Color Light-yellow (Yellow) Urine Clarity Clear (Clear) Urine pH 6.0 (5.0-9.0) Urine Specific [place] 1.019 (1.001-1.035) Urine Protein 3+ (Negative) H Urine Ketones Negative (Negative) Urine Blood 1+ /uL (Negative) H Urine Nitrite Negative (Negative) Urine Bilirubin Negative (Negative) Urine Urobilinogen Normal mg/dL (Negative) Urine Leukocyte Esterase Negative /uL (Negative) Urine RBC 2 /hpf (0 - 3) Urine Microscopic WBC 2 /HPF (0-3) Urine Squamous Epithelial Cells None seen /hpf (<5) Urine Bacteria None seen /hpf (None Seen) Urine Glucose 4+ mg/dL (Normal) H Assessment/Plan Assessment/Plan -acute hypoxic respiratory failure -community-acquired pneumonia, probable Gram-positive/Gram-negative etiology -rule out sepsis -acute decompensated diastolic heart failure,HefPef, preserved ejection fraction -diabetes mellitus, uncontrolled -tobacco abuse -COPD -acute kidney injury,? Vasomotor nephropathy Plan: Events: Patient has increase in white blood cell count. Reports having period of dyspnea this a.m.. Blood pressure improved. -Stop Lasix given systolic blood pressure at 100. -O2 supplementation to keep saturation greater than 92% -continue antibiotic therapy with Rocephin and azithromycin -bronchodilators -regular insulin sliding scale, increase to moderate scale -echocardiogram: Preliminary results reviewed -repeat labs, chest x-ray in a.m. Total time spent with patient discussing and formulating plan of care: 35 minutes. Smoking cessation education: 10 minutes spent with the patient Plan discussed with: Patient Date of Service: Sep 20, 2024 Billing Provider: ISABELA LIVINGSTON MD Common Visit Codes: [id number] INP/OBS CARE(HIGH) ISABELA LIVINGSTON MD Sep 20, 2024 19:07
[2024-09-21] VITALS (18 sets, daily range): BP systolic 127–170; BP diastolic 70–85; PULSE 67–92; RESP 15–22; TEMP 97.2–97.8; O2SAT 86–99
[2024-09-21 11:15] LABS: Basophils # (auto) 0.1 10 ^3/uL (0-0.2); Basophils % (auto) 0.6 % (0.0-2.0); Eosinophils # (auto) 0.4 10 ^3/uL (0-0.8); Eosinophils % (auto) 3.3 % (0.0-7.0); Hematocrit 43.2 % (41.0-53.0); Hemoglobin 14.1 g/dL (13.5-17.5); Lymphocytes # (auto) 1.4 10 ^3/uL (0.4-5.4); Lymphocytes % (auto) 12.9 % (10.0-50.0); Mean Corpuscular Hemoglobin 29.7 pg (28.0-32.0); Mean Corpuscular Hgb Conc. 32.7 g/dL (32.0-36.0); Mean Corpuscular Volume 90.6 fL (80.0-100.0); Monocytes # (auto) 0.7 10 ^3/uL (0-1.3); Monocytes % (auto) 6.1 % (0.0-12.0); Neutrophils # (auto) 8.4 10 ^3/uL (1.6-8.6); Neutrophils % (auto) 77.1 % (37.0-80.0); Nucleated Red Blood Cells % 0.1 %; Platelet Count (auto) 268 10^3/uL (140-450); Red Blood Cells 4.77 10^6/uL (4.5-5.90); Red Cell Distribution Width 14.6 % (11.8-14.3); White Blood Cell 10.9 10^3/uL (4.4-10.8)
[2024-09-21] MEDS: FUROSEMIDE 40 MG/4 ML VIAL ONE ×2 (11:57→12:15)
[2024-09-21] MEDS: hydrALAZINE HCL 20 MG/ML VL IV STA (12:05)
[2024-09-21] MEDS: FUROSEMIDE 40 MG/4 ML VIAL IV STA (12:11)
[2024-09-21] MEDS: hydrALAZINE HCL 20 MG/ML VL ONE (12:14)
--- NOTE | 2024-09-21 12:23 | DVH ---
EXAM: XY CHEST XRAY 1 VIEW HISTORY: SOB R/O PE COMPARISON: XY CHEST PORTABLE on DOS: 09/20/24, XY CHEST PORTABLE on DOS: 09/17/24, XY CHEST PORTABLE o n DOS: 06/18/23, XY CHEST PORTABLE on DOS: 12/13/22 TECHNIQUE: Portable AP view of the chest was performed. FINDINGS: There is florid pulmonary edema. There are bilateral lung base effusions and/ or infiltrates obscuri ng the hemidiaphragms. No pneumothorax. The heart is nonenlarged. IMPRESSION: Florid pulmonary edema and bilateral pleural effusions consistent with CHF. Can not exclude superimp osed basilar pneumonia of the basis of this study.
[2024-09-21 12:33] LABS: Base Excess -3.8 mmol/L (-2.0-3.0)
[2024-09-21 12:42] LABS: Basophils # (auto) 0.2 10 ^3/uL (0-0.2); Eosinophils # (auto) 0.6 10 ^3/uL (0-0.8); Eosinophils % (auto) 3.4 % (0.0-7.0); Hematocrit 45.3 % (41.0-53.0); Hemoglobin 15.1 g/dL (13.5-17.5); Lymphocytes # (auto) 3.2 10 ^3/uL (0.4-5.4); Lymphocytes % (auto) 18.5 % (10.0-50.0); Mean Corpuscular Hemoglobin 30.3 pg (28.0-32.0); Mean Corpuscular Hgb Conc. 33.3 g/dL (32.0-36.0); Mean Corpuscular Volume 90.8 fL (80.0-100.0); Monocytes # (auto) 1.2 10 ^3/uL (0-1.3); Monocytes % (auto) 6.9 % (0.0-12.0); Neutrophils # (auto) 12.2 10 ^3/uL (1.6-8.6); Neutrophils % (auto) 70.2 % (37.0-80.0); Nucleated Red Blood Cells % 0.1 %; Platelet Count (auto) 319 10^3/uL (140-450); Red Blood Cells 4.99 10^6/uL (4.5-5.90); Red Cell Distribution Width 14.5 % (11.8-14.3); White Blood Cell 17.3 10^3/uL (4.4-10.8)
[2024-09-21 13:00] LABS: Albumin 3.8 g/dL (3.2-4.8); Anion Gap 4 (5-15); BUN/Creatinine Ratio 20.1 (10.0-20.0); Carbon Dioxide 28 mmol/L (20-31); Chloride 104 mmol/L (98-107); Potassium 4.9 mmol/L (3.5-5.1)
[2024-09-21 13:01] LABS: Alanine Aminotransferase 77 U/L (7-40); Alkaline Phosphatase 315 U/L (46-116); Aspartate Aminotransferase 150 U/L (13-40); Bilirubin, Total 0.4 mg/dL (0.2-1.0); Blood Urea Nitrogen 37 mg/dL (9-23); Calcium 8.3 mg/dL (8.7-10.4); Glucose 312 mg/dL (74-106); Sodium 136 mmol/L (136-145); Total Protein 6.5 g/dL (5.7-8.2)
--- NOTE | 2024-09-21 13:26 | RESUS ---
CODE ASSIST ASSESSSMENT Initial Information Code Assist Date: Sep 21, 2024 Code Assist Time: 11:55 Room # 285b Provider Name Marino Time Notified: 11:55 Crash Cart Opened and Supplies: Yes Comment: Code assist team at bedside prior to code assist being paged overhead Situation Staff concerned/worried, speci: SaO2 <90, RR >28 Situation comment: Patient noted to have increase work in breathing with obvious accessory muscle use. spo2 @ 88% on 2lpm NC +2 pitting edema to left lower extremity audible crackles noted with breath sounds Background Background: hx CHF L above knee amputee Assessment Temperature (Fahrenheit): 97.6 Blood Pressure Systolic: 202 Blood Pressure Diastolic: 103 Respiratory Rate: 30 O2 Sat by Pulse Oximetry: 88 Bedside Blood Glucose: 364 Recommendations/Interventions Medications and Responses : ADULT Medications Given: Route of Administration: IV Medication Comment: lasix 80mg IV push hydralazine 15mg IV push EKG Rhythm: Sinus Rhythm Blood Pressure Systolic: 167 Blood Pressure Diastolic: 101 Respiratory Rate: 22 Comment second set of vitals after medication administration and bipap application Procedures: Accu check, ABG, CXR Portable, CMP, CBC, Cardiac Monitoring, BIPAP Outcome Outcome: Transfer to Telemetry Team Members Team Members Dr Marino Duncan ICU safety patrol officer Jeanne COMMERCIAL BAKER HELPER Marcela RN Song Keen RN Lorraine Servin Sep 21, 2024 13:25
[2024-09-21 14:07] LABS: Base Excess -3.3 mmol/L (-2.0-3.0)
--- NOTE | 2024-09-21 14:45 | DVHPN2 ---
Subjective in bed resting Became very tachypneic and SOB after seeing him Rapid response called Hypoxic to 70s Reviewed: Care Plan, H&P, Labs, Medications Changes from previous H/P or p: No Changes General: Per HPI Objective Vitals Vital Signs Date Time Temp Pulse Resp B/P (MAP) Pulse Ox O2 Delivery O2 Flow Rate FiO2 09/21/24 14:00 78 99 Facial BiPAP Mask 30 09/21/24 13:32 159/89 09/21/24 13:25 22 30 09/21/24 11:13 2 09/21/24 09:00 97.6 97.6 Intake/Output Intake and Output 09/21/24 07:00 Intake Total 2728 ml Output Total 1100 ml Balance 1628 ml Intake Oral 2278 ml IV Total 450 ml Output Urine Total 1100 ml # Bowel Movements 1 General Appearance: Alert, Oriented X3, Cooperative, severe distress HEENT: Atraumatic, PERRLA Neck: Carotid [place]its [place] Cardiovascular: Normal S1, Normal S2 Abdomen: Normal bowel sounds Musculoskeletal: Normal sensory function, Normal motor function Skin: Dry, Intact Psych/Mental Status: Mental status NL, Mood NL Medications Current Medications Medications Dose Ordered Sig/Marlo Route Start Time Stop Time Status Last Admin Dose Admin Albuterol 2.5 mg Q6HPRN PRN NEB 09/17/24 20:30 09/19/24 22:10 2.5 MG Atorvastatin Calcium 40 mg HS PO 09/17/24 22:00 09/20/24 21:32 40 MG Clopidogrel Bisulfate 75 mg DAILY PO 09/18/24 10:00 09/21/24 08:36 75 MG Empaglifozin 10 mg DAILY PO 09/18/24 10:00 09/21/24 08:54 10 MG Gabapentin 100 mg TID PO 09/17/24 22:00 09/21/24 03:31 100 MG Lisinopril 20 mg DAILY PO 09/18/24 10:00 09/21/24 08:36 20 MG Ipratropium [place] 0.5 mg Q6HPRN PRN NEB 09/17/24 20:30 09/19/24 22:10 0.5 MG Azithromycin 250 ml @ 125 mls/hr DAILY IV 09/18/24 10:00 09/21/24 08:36 125 MLS/HR Ondansetron HCl 4 mg Q4HP PRN IV 09/17/24 20:30 Acetaminophen 650 mg Q6HP PRN PO 09/17/24 20:30 Diagnostic Test (Pha) 1 strip ACHS 09/18/24 17:00 09/21/24 11:06 1 STRIP Insulin Human Regular HS SC 09/18/24 22:00 09/20/24 21:18 3 UNITS Insulin Human Regular AC SC 09/18/24 17:00 09/21/24 11:15 12 UNITS Dextrose 50 ml UD PRN IV 09/18/24 12:45 Carvedilol 12.5 mg Q12HR PO 09/19/24 10:00 09/21/24 08:53 12.5 MG Hydralazine HCl 10 mg Q6HP PRN IV 09/19/24 04:00 09/21/24 13:32 10 MG Piperacillin Sod/ Tazobactam Sod 100 ml @ 25 mls/hr Q8HR IV 09/19/24 14:00 09/21/24 03:31 25 MLS/HR Albuterol 2.5 mg Q6HR NEB 09/20/24 00:00 09/21/24 11:13 2.5 MG Ipratropium [place] 0.5 mg Q6HR NEB 09/20/24 00:00 09/21/24 11:13 0.5 MG Laboratory Results Laboratory Tests 09/21/24 11:57 Chemistry Test 09/21/24 11:57 Albumin 3.8 g/dL (3.2-4.8) Calcium Level 8.3 mg/dL (8.7-10.4) L Total Protein 6.5 g/dL (5.7-8.2) Coagulation Test 09/21/24 11:51 D-Dimer, Quantitative 0.80 mg/L FEU (0.0-0.49) H LFT Test 09/21/24 11:57 Alanine Aminotransferase (ALT) 77 U/L (7-40) H Alkaline Phosphatase 315 U/L (46-116) H Aspartate Amino Transferase (AST) 150 U/L (13-40) H Total Bilirubin 0.4 mg/dL (0.2-1.0) Urinalysis Test 09/19/24 02:30 Urine Color Light-yellow (Yellow) Urine Clarity Clear (Clear) Urine pH 6.0 (5.0-9.0) Urine Specific [place] 1.019 (1.001-1.035) Urine Protein 3+ (Negative) H Urine Ketones Negative (Negative) Urine Blood 1+ /uL (Negative) H Urine Nitrite Negative (Negative) Urine Bilirubin Negative (Negative) Urine Urobilinogen Normal mg/dL (Negative) Urine Leukocyte Esterase Negative /uL (Negative) Urine RBC 2 /hpf (0 - 3) Urine Microscopic WBC 2 /HPF (0-3) Urine Squamous Epithelial Cells None seen /hpf (<5) Urine Bacteria None seen /hpf (None Seen) Urine Glucose 4+ mg/dL (Normal) H Blood Gas Results Test 09/21/24 12:21 09/21/24 13:50 Arterial Blood pH 7.239 (7.350-7.450) 7.352 (7.350-7.450) FiO2 % 60.0 60.0 Assessment/Plan Assessment/Plan -acute hypoxic respiratory failure -community-acquired pneumonia, probable Gram-positive/Gram-negative etiology -rule out sepsis -acute decompensated diastolic heart failure,HefPef, preserved ejection fraction -diabetes mellitus, uncontrolled -tobacco abuse -COPD -acute kidney injury,? Vasomotor nephropathy #Acute pulmonary edema Rapid called today due to flash pulmonary edema, hypoxic to 70s Placed on BIPAP Got 80 IV lasix IV hydralazine CXR as above CT chest and CT head ordered #Hypertensive emergency end organ damage with worsening kidney function and pulmonary edema Required IV lasix and hydralazine and BP improved Plan: Events: Patient has increase in white blood cell count. Reports having period of dyspnea this a.m.. Blood pressure improved. -Stop Lasix given systolic blood pressure at 100. -O2 supplementation to keep saturation greater than 92% -continue antibiotic therapy with Rocephin and azithromycin -bronchodilators -regular insulin sliding scale, increase to moderate scale -echocardiogram: Preliminary results reviewed -repeat labs, chest x-ray in a.m. Critical care time 50 Plan discussed with: Patient My Orders Orders - ISABELA LIVINGSTON MD Procedure Category Date Status Time Complete Blood Count LAB 09/22/24 Verified 05:00 Complete Blood Count LAB 09/23/24 Verified 05:00 Complete Blood Count LAB 09/24/24 Verified 05:00 Complete Blood Count LAB 09/25/24 Verified 05:00 Complete Blood Count LAB 09/26/24 Verified 05:00 Complete Blood Count LAB 09/27/24 Verified 05:00 Complete Blood Count LAB 09/28/24 Verified 05:[address] 09/21/24 Logged Contrast 11:51 Chest Xray 1 View XY 09/21/24 Resulted 11:51 Electrocardigram EKG 09/21/24 Logged 11:[address] 09/21/24 Logged 12:20 Transfer Orders XFER 09/21/24 Transmitted 12:27 Graphic Design Manager ORDERS 09/21/24 Transmitted 12:27 Urine Bacterial CADENCE 09/21/24 In Process Culture 12:29 BIPAP RT 09/21/24 Logged 12:42 Date of Service: Sep 21, 2024 Billing Provider: ISABELA LIVINGSTON MD Common Visit Codes: [id number] CARE 30-74 MIN ISABELA LIVINGSTON MD Sep 21, 2024 14:45
[2024-09-22] VITALS (15 sets, daily range): BP systolic 124–168; BP diastolic 53–82; PULSE 75–84; RESP 14–20; TEMP 97.3–98; O2SAT 95–100
[2024-09-22 06:58] LABS: Basophils # (auto) 0.1 10 ^3/uL (0-0.2); Basophils % (auto) 0.7 % (0.0-2.0); Eosinophils # (auto) 0.4 10 ^3/uL (0-0.8); Eosinophils % (auto) 3.2 % (0.0-7.0); Hematocrit 42.5 % (41.0-53.0); Lymphocytes % (auto) 14.8 % (10.0-50.0); Mean Corpuscular Hemoglobin 29.5 pg (28.0-32.0); Mean Corpuscular Hgb Conc. 32.9 g/dL (32.0-36.0); Mean Corpuscular Volume 89.6 fL (80.0-100.0); Monocytes % (auto) 7.2 % (0.0-12.0); Neutrophils # (auto) 9.9 10 ^3/uL (1.6-8.6); Neutrophils % (auto) 74.1 % (37.0-80.0); Platelet Count (auto) 284 10^3/uL (140-450); Red Blood Cells 4.75 10^6/uL (4.5-5.90); Red Cell Distribution Width 14.5 % (11.8-14.3); White Blood Cell 13.3 10^3/uL (4.4-10.8)
--- NOTE | 2024-09-22 09:04 | DVHPN2 ---
Subjective Patient reports that his breathing has slightly improved. Reviewed: Care Plan, H&P, Labs, Medications Changes from previous H/P or p: No Changes General: Per HPI Objective Vitals Vital Signs Date Time Temp Pulse Resp B/P (MAP) Pulse Ox O2 Delivery O2 Flow Rate FiO2 09/22/24 06:47 84 20 95 09/22/24 06:41 Oxymizer 5.0 09/22/24 06:41 N/A 09/22/24 05:00 97.9 159/81 (107) 97.9 Intake/Output Intake and Output 09/22/24 07:00 Intake Total 1558 ml Output Total 2450 ml Balance -892 ml Intake Oral 1108 ml IV Total 450 ml Output Urine Total 2450 ml General Appearance: Alert, Oriented X3, Cooperative, severe distress HEENT: Atraumatic, PERRLA Neck: Carotid [place] Cardiovascular: Normal S1, Normal S2 Abdomen: Normal bowel sounds Musculoskeletal: Normal sensory function, Normal motor function Skin: Dry, Intact Psych/Mental Status: Mental status NL, Mood NL Medications Current Medications Medications Dose Ordered Sig/Marlo Route Start Time Stop Time Status Last Admin Dose Admin Albuterol 2.5 mg Q6HPRN PRN NEB 09/17/24 20:30 09/19/24 22:10 2.5 MG Atorvastatin Calcium 40 mg HS PO 09/17/24 22:00 09/21/24 21:12 40 MG Clopidogrel Bisulfate 75 mg DAILY PO 09/18/24 10:00 09/21/24 08:36 75 MG Empaglifozin 10 mg DAILY PO 09/18/24 10:00 09/21/24 08:54 10 MG Gabapentin 100 mg TID PO 09/17/24 22:00 09/22/24 06:42 100 MG Lisinopril 20 mg DAILY PO 09/18/24 10:00 09/21/24 08:36 20 MG Ipratropium [place] 0.5 mg Q6HPRN PRN NEB 09/17/24 20:30 09/19/24 22:10 0.5 MG Azithromycin 250 ml @ 125 mls/hr DAILY IV 09/18/24 10:00 09/21/24 08:36 125 MLS/HR Ondansetron HCl 4 mg Q4HP PRN IV 09/17/24 20:30 Acetaminophen 650 mg Q6HP PRN PO 09/17/24 20:30 Diagnostic Test (Pha) 1 strip ACHS 09/18/24 17:00 09/22/24 06:43 1 STRIP Insulin Human Regular HS SC 09/18/24 22:00 09/21/24 21:25 4 UNITS Insulin Human Regular AC SC 09/18/24 17:00 09/22/24 06:43 2 UNITS Dextrose 50 ml UD PRN IV 09/18/24 12:45 Carvedilol 12.5 mg Q12HR PO 09/19/24 10:00 09/21/24 21:12 12.5 MG Hydralazine HCl 10 mg Q6HP PRN IV 09/19/24 04:00 09/22/24 01:48 10 MG Piperacillin Sod/ Tazobactam Sod 100 ml @ 25 mls/hr Q8HR IV 09/19/24 14:00 09/22/24 05:30 25 MLS/HR Albuterol 2.5 mg Q6HR NEB 09/20/24 00:00 09/22/24 06:41 2.5 MG Ipratropium [place] 0.5 mg Q6HR NEB 09/20/24 00:00 09/22/24 06:41 0.5 MG Laboratory Results Laboratory Tests 09/21/24 11:57 09/22/24 06:31 Chemistry Test 09/21/24 11:57 Albumin 3.8 g/dL (3.2-4.8) Calcium Level 8.3 mg/dL (8.7-10.4) L Total Protein 6.5 g/dL (5.7-8.2) Coagulation Test 09/21/24 11:51 D-Dimer, Quantitative 0.80 mg/L FEU (0.0-0.49) H LFT Test 09/21/24 11:57 Alanine Aminotransferase (ALT) 77 U/L (7-40) H Alkaline Phosphatase 315 U/L (46-116) H Aspartate Amino Transferase (AST) 150 U/L (13-40) H Total Bilirubin 0.4 mg/dL (0.2-1.0) Urinalysis Test 09/19/24 02:30 Urine Color Light-yellow (Yellow) Urine Clarity Clear (Clear) Urine pH 6.0 (5.0-9.0) Urine Specific [place] 1.019 (1.001-1.035) Urine Protein 3+ (Negative) H Urine Ketones Negative (Negative) Urine Blood 1+ /uL (Negative) H Urine Nitrite Negative (Negative) Urine Bilirubin Negative (Negative) Urine Urobilinogen Normal mg/dL (Negative) Urine Leukocyte Esterase Negative /uL (Negative) Urine RBC 2 /hpf (0 - 3) Urine Microscopic WBC 2 /HPF (0-3) Urine Squamous Epithelial Cells None seen /hpf (<5) Urine Bacteria None seen /hpf (None Seen) Urine Glucose 4+ mg/dL (Normal) H Blood Gas Results Test 09/21/24 12:21 09/21/24 13:50 Arterial Blood pH 7.239 (7.350-7.450) 7.352 (7.350-7.450) FiO2 % 60.0 60.0 Microbiology Microbiology Date/Time Source Procedure Growth Status 09/21/24 12:29 Urine - Catheterized Urine Culture - Preliminary Resulted Labs and/or images reviewed: Labs reviewed by me, Image(s) reviewed by me Assessment/Plan Assessment/Plan Impression: -acute hypoxic respiratory failure -community-acquired pneumonia, probable Gram-positive/Gram-negative etiology -rule out sepsis -acute decompensated diastolic heart failure,HefPef, preserved ejection fraction -diabetes mellitus, uncontrolled -tobacco abuse -COPD -acute kidney injury,? Vasomotor nephropathy Plan: Events: Patient had code assist yesterday for worsening hypoxia. Repeat chest x-ray reveals flash pulmonary edema. Patient was placed on BiPAP, currently weaned off. -V/Q scan -repeat EKG -serial troponin -cardiology consultation. Further discussion with the patient reveals that he has a history of CAD, not amenable for surgery at that time with medical management placed. Currently on Plavix and aspirin for lower extremity stents. -continue diuresis with Lasix and Jardiance -O2 supplementation to keep saturation greater than 92% -continue antibiotic therapy with Rocephin and azithromycin -bronchodilators -regular insulin sliding scale, increase to moderate scale -repeat labs, chest x-ray in a.m. Total time spent with patient discussing and formulating plan of care: 35 minutes. This medical document was created using an electronic medical record system with [employer] system. Although this document has been carefully reviewed, there may still be some phonetic and typographical errors. These areas are purely typographical due to imperfections of the software programs, and do not reflect any compromise in the patient's medical care. Plan discussed with: Patient, Other (RN) My Orders Orders - BARTOLOME MICHAEL NP Procedure Category Date Status Time Troponin-I Hs LAB 09/22/24 In Process 08:24 Troponin-I Hs LAB 09/22/24 Logged 09:24 Troponin-I Hs LAB 09/22/24 Logged 11:24 Nm Vq Scan NM 09/22/24 Logged 08:[address] 09/22/24 Logged 08:55 Electrocardigram EKG 09/22/24 Logged 08:56 * Cardiology Consult CONS 09/22/24 Transmitted 08:56 Date of Service: Sep 22, 2024 Billing Provider: BARTOLOME MICHAEL NP Common Visit Codes: [id number] INP/OBS CARE(HIGH) BARTOLOME MICHAEL NP Sep 22, 2024 09:04
--- NOTE | 2024-09-22 09:39 | DVH ---
Procedure: XY CHEST XRAY 1 VIEW 09/22/2024 08:31 AM Indication: Follow up from previous day Comparison: XY CHEST XRAY 1 VIEW on DOS: 09/21/24, XY CHEST PORTABLE on DOS: 09/20/24, XY CHEST PORTABL E on DOS: 09/17/24 TECHNIQUE: XY CHEST XRAY 1 VIEW FINDINGS: Medical devices: None. Cardiomediastinal: The heart is normal in size. Pulmonary vasculature is within normal limits. Athero sclerotic calcification of the aortic arch noted. Lungs: Confluent opacities in the bilateral mid and lower lung zones. Blunting of the bilateral costo phrenic angles. No pneumothorax. Bones/soft tissues: No acute abnormality is noted. IMPRESSION: 1. Improving CHF persistent small bilateral pleural effusions and residual mid to lower lung zone pul monary opacities.
--- NOTE | 2024-09-22 12:12 | DVH ---
EXAM: CT HEAD WITHOUT CONTRAST HISTORY: ALOC COMPARISON: CT HEAD WITHOUT CONTRAST on DOS: 06/18/23, HEAD WITHOUT CONTRAST on DOS: 12/03/20 TECHNIQUE: Axial images of the head were obtained and reformatted in coronal and sagittal planes. All CT scans at this medical facility are performed using dose modulation techniques as appropriate t o a performed exam including the following: Automated exposure control was utilized; adjustment of th e MA and/or KV according to patient size; and use of iterative reconstruction technique. CT Dose: CTDI volume is 55.28 mGy. Dose-length product is 978.83 mGy*cm FINDINGS: There is no evidence of acute intracranial hemorrhage, mass, mass effect midline shift. There is no h ydrocephalus or extra-axial fluid collection. Padegtt-white matter differentiation is maintained. There is patchy mucosal thickening in the paranasal sinuses. Mastoid air cells are clear. The keegan rium is intact. IMPRESSION: 1. No acute intracranial process. HS:Y
--- NOTE | 2024-09-22 12:44 | DVH ---
NUCLEAR MEDICINE VENTILATION/PERFUSION LUNG SCAN. INDICATION: PULMONARY EMBOLISM COMPARISON: None TECHNIQUE: Following intravenous demonstration of 4.3 millicuries of technetium 99m MAA, and inhala tion of by 0.5 mCi of Xe 133 scintigrams were obtained in multiple projections of the lungs. FINDINGS: There is normal uptake of radionuclide on both the ventilation and perfusion portions of the examinat ion. No mismatched perfusion defects are demonstrated. Uptake is normally homogeneous. IMPRESSION: Low probability for PE.
--- NOTE | 2024-09-22 13:37 | DVH ---
CLINICAL INFORMATION: 63 years old, Male; pneumonia, congestive heart failure. TECHNIQUE: Axial CT imaging of the chest was performed without IV contrast. Sagittal and coronal ref ormatted images were made, stored and reviewed. Evaluation is limited without IV contrast. One or mor e of the following dose reduction techniques were used: Automated exposure control. Adjustment of mA and/or kV according to patient size. CTDIvol = 13.64 mGy DLP = 491.87 mGy-cm COMPARISON: Same-day radiograph. FINDINGS: Aorta: No aneurysm. Dense atherosclerotic calcification. Cardiac: Heart size is within normal limits. Trace pericardial effusion. Dense coronary artery calcif ication and/or stents. Mediastinum/srini: Enlarged mediastinal lymph nodes, measuring up to 2.0 x 1.0 cm in the right lower p aratracheal station 1.5 x 0.9 cm in the AP window station. Lungs: Moderate bilateral pleural effusions with overlying compressive atelectasis in the lower lobes . Small areas of ground-glass attenuation are seen in the right upper lobe. Pulmonary arteries: No gross abnormality. Chest wall: No mass or other abnormality. Upper abdomen: Visualized structures in the upper abdomen are unremarkable. Bones: No fracture or suspicious intraosseous lesions. IMPRESSION: 1. Moderate bilateral pleural effusions with overlying compressive atelectasis in the lower lobes. Awad perimposed lower lobe consolidation can not be excluded. 2. Small subtle ground-glass opacities in the right upper lobe, may be due to pulmonary vascular jesu estion. Infectious or inflammatory etiology not completely excluded. 3. Trace pericardial effusion. 4. Mediastinal lymphadenopathy, may be reactive. Correlate with clinical findings. Malignancy, includ ing lymphoma or metastatic disease can not be completely excluded. 5. Additional findings as described above.
--- NOTE | 2024-09-22 13:48 | ECG ---
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
--- NOTE | 2024-09-22 14:29 | DVHINCON2 ---
Date Seen: Sep 22, 2024 Referring Physician JOSSE Perez Reason for Consultation Flash pulmonary edema History of Present Illness This is a 63-year-old male patient who presents to the emergency room worsening shortness of breath for 1 hour prior to emergency room arrival. The patient was found to have community-acquired pneumonia. Cardiology has been consulted at this time for flash pulmonary edema. According to documentation, a code assist was called last night (09/21/24 at 2355) after the patient was found to have an increased work of breathing and was using accessory muscles. The patient was given IV Lasix 80 mg one time as well as hydralazine 15 mg IV push and initiated on BiPAP machine. A stat chest x-ray was done and revealed florid pulmonary edema and bilateral pleural effusions consistent with CHF. At the time of assessment, the patient is on 6 L Oxymizer it was not in any acute respiratory distress. Initial twelve lead electrocardiogram reveals sinus rhythm with PVC and left ventricular hypertrophy. Significant past medical history includes congestive heart failure, peripheral vascular disease status post PTCA x 4 JOANA (on Plavix), hypertension, dyslipidemia, type 2 diabetes mellitus, peripheral neuropathy, right vahhe-bkz-scje amputation, and tobacco use. Patient reports he follows up with bulb filler in the outpatient setting. Past Medical History Past medical history reviewed. No other significant than mentioned above. Past Surgical History Right [id number]-[id number] amputation Family History: Diabetes mellitus G8 MOTHER FH: heart attack G8 MOTHER Hypertension G8 MOTHER Ischemic heart disease G8 MOTHER Family History Family history reviewed. Social History Patient has a 25 pack-year history, still smokes now less than a pack a day Denies any alcohol use Denies any illicit drug use Allergies: Coded Allergies: NO KNOWN ALLERGIES (Unverified , 08/06/23) Home Meds Reported Medications Dulaglutide (Trulicity) 0.75 Mg/0.5 Ml Inj, 0.75 MG SC QWEEKLY for 84 Days, #6 09/19/24 Lisinopril (Lisinopril) 20 Mg Tab, 1 TAB PO DAILY for 90 Days, #90 MG 09/19/24 Furosemide (Furosemide) 20 Mg Tab, 1 TAB PO DAILY for 90 Days, #90 09/19/24 Empagliflozin (Jardiance) 25 Mg Tab, 1 TAB PO DAILY for 90 Days, #90 09/19/24 Insulin Lispro (Insulin Lispro) 100 Unit/Ml Inj, 5 UNIT SC TIDWM, INJ 08/07/23 Insulin Glargine-Yfgn (Insulin Glargine) 100 Unit/Ml Inj, 8 UNIT SC QAM, INJ 08/07/23 Pentoxifylline (TRENTAL ER TABLET) 400 Mg Tb, 400 MG PO TID, TAB 08/07/23 Gabapentin (Gabapentin) 100 Mg Cap, 100 MG PO TID 08/07/23 Metformin Hydrochloride (Metformin Hcl) 500 Mg Tab, 1000 MG PO BID for 30 Days, MG 08/07/23 Aspirin (Aspir-81) 81 Mg Tab, 1 TAB PO DAILY, #30 TAB 5 Refills 08/07/23 Atorvastatin Calcium (ATORVASTATIN CALCIUM) 40 Mg Tab, 1 TAB PO DAILY 12/14/22 Clopidogrel Bisulfate (CLOPIDOGREL) 75 Mg Tab, 1 TAB PO DAILY 12/14/22 Glimepiride (Glimepiride) 4 Mg Tab, 1 TAB PO BID 12/14/22 Home Meds Home medications reviewed. Review of Systems Constitutional: No symptom reported Ears, Nose, & Throat: No symptom reported Eyes: No symptom reported Neurological: No symptoms reported Pulmonary/Respiratory: Shortness of breath Cardiovascular: No symptom reported Gastrointestinal: No symptom reported Genitourinary: No symptom reported Musculoskeletal: No symptom reported Skin: No symptom reported Psychiatric: No symptom reported Endocrine: No symptom reported Hematologic/Lymphatic: No symptom reported Vital Signs Vital Signs Date Time Temp Pulse Resp B/P (MAP) Pulse Ox O2 Delivery O2 Flow Rate FiO2 09/22/24 14:00 97.9 77 18 124/67 (86) 97 97.9 09/22/24 11:25 Oxymizer 5 N/A Physical Exam General Appearance: Cooperative. Well-developed. Well-nourished. No acute distress. Pulmonary/Respiratory: Diminished bilateral lower lobes Cardiovascular/Chest: Regular rate and rhythm. Peripheral Pulses: 2+ Radial (R). 2+ Radial (L). Abdominal Exam: Normal bowel sounds. Ankle Exam: Negative ankle edema Lower extremities: Negative lower extremity edema Neuro/Mental Status: A/OX4, coherent. Thoughts/Psych: Normal thought pattern. Appropriate mood and affect. Good judgment and insight. Appearance: No acute distress. Skin Exam: Normal inspection. Normal color. Warm and dry. Labs/Diagnostic Data Labs Test 09/22/24 13:36 09/22/24 12:32 09/22/24 06:31 09/21/24 13:50 Range/Units Troponin I High Sensitivity 18 </=54 ng/L POC Glucose 242 H 70-106 mg/dl White Blood Count 13.3 H 4.4-10.8 10^3/uL Red Blood Count 4.75 4.5-5.90 10^6/uL Hemoglobin 14.0 13.5-17.5 g/dL Hematocrit 42.5 41.0-53.0 % Mean Corpuscular Volume 89.6 80.0-100.0 fL Mean Corpuscular Hemoglobin 29.5 28.0-32.0 pg Mean Corpuscular Hemoglobin Concent 32.9 32.0-36.0 g/dL Red Cell Distribution Width 14.5 H 11.8-14.3 % Platelet Count 284 140-450 10^3/uL Mean Platelet Volume 8.3 6.9-10.8 fL Neutrophils (%) (Auto) 74.1 37.0-80.0 % Lymphocytes (%) (Auto) 14.8 10.0-50.0 % Monocytes (%) (Auto) 7.2 0.0-12.0 % Eosinophils (%) (Auto) 3.2 0.0-7.0 % Basophils (%) (Auto) 0.7 0.0-2.0 % Neutrophils # (Auto) 9.9 H 1.6-8.6 10 ^3/uL Lymphocytes # (Auto) 2.0 0.4-5.4 10 ^3/uL Monocytes # (Auto) 1.0 0-1.3 10 ^3/uL Eosinophils # (Auto) 0.4 0-0.8 10 ^3/uL Basophils # (Auto) 0.1 0-0.2 10 ^3/uL Nucleated Red Blood Cells 0.0 % Blood Gas Specimen Type Arterial Blood Gas Sample Site Right radial Blood Gas Patient Temperature 37.0 Arterial Blood Date Drawn [id number] Arterial Blood pH 7.352 7.350-7.450 Arterial Blood Partial Pressure CO2 40.7 35.0-48.0 mmHg Arterial Blood Partial Pressure O2 122.7 H 83.0-108.0 mmHg Arterial Blood HCO3 22.1 21.0-28.0 mmol/L Arterial Blood Oxygen Saturation 98.0 94.0-98.0 % Arterial Blood Base Excess -3.3 L -2.0-3.0 mmol/L Arterial Blood Oxyhemoglobin 97.3 94.0-98.0 % Arterial Blood Carboxyhemoglobin 0.6 0.5-1.5 % Arterial Blood Methemoglobin 0.1 0.0-1.5 % Nehemias Test Yes Blood Gas Total Hemoglobin 14.10 13.5-17.5 g/dL Blood Gas Set Respiration Rate 14.0 Blood Gas Modality Mask - bipap FiO2 % 60.0 Blood Gas EPAP 5 Blood Gas IPAP 12 Test 09/21/24 12:21 09/21/24 11:58 09/21/24 11:57 09/21/24 11:51 Range/Units Blood Gas Critical Value Read Back Yes Blood Gas Notified Whom Galafrida maribel Blood Gas Notified Time [id number] Blood Gas Notified By Lactate Dehydrogenase 309 H 120-246 U/L Sodium Level 136 136-145 mmol/L Potassium Level 4.9 3.5-5.1 mmol/L Chloride Level 104 98-107 mmol/L Carbon Dioxide Level 28 20-31 mmol/L Anion Gap 4 L 5-15 Blood Urea Nitrogen 37 H 9-23 mg/dL Creatinine 1.84 H 0.700-1.30 mg/dL Glomerular Filtration Rate Calc 41 >90 mL/min BUN/Creatinine Ratio 20.1 H 10.0-20.0 Serum Glucose 312 #H 74-106 mg/dL Calcium Level 8.3 L 8.7-10.4 mg/dL Total Bilirubin 0.4 0.2-1.0 mg/dL Aspartate Amino Transferase (AST) 150 H 13-40 U/L Alanine Aminotransferase (ALT) 77 H 7-40 U/L Alkaline Phosphatase 315 H 46-116 U/L Total Protein 6.5 5.7-8.2 g/dL Albumin 3.8 3.2-4.8 g/dL D-Dimer, Quantitative 0.80 H 0.0-0.49 mg/L FEU Test 09/19/24 03:00 09/19/24 02:30 09/18/24 04:56 09/17/24 17:17 Range/Units Influenza Type A Antigen Negative Negative Influenza Type B Antigen Negative Negative SARS-CoV-2 Antigen (Rapid) Negative NEGATIVE Urine Color Light-yellow Yellow Urine Clarity Clear Clear Urine pH 6.0 5.0-9.0 Urine Specific [place] 1.019 1.001-1.035 Urine Protein 3+ H Negative Urine Ketones Negative Negative Urine Blood 1+ H Negative /uL Urine Nitrite Negative Negative Urine Bilirubin Negative Negative Urine Urobilinogen Normal Negative mg/dL Urine Leukocyte Esterase Negative Negative /uL Urine RBC 2 0 - 3 /hpf Urine Microscopic WBC 2 0-3 /HPF Urine Squamous Epithelial Cells None seen <5 /hpf Urine Bacteria None seen None Seen /hpf Urine Glucose 4+ H Normal mg/dL Hemoglobin A1c 8.6 H <5.7 % A1C B-Type Natriuretic Peptide 463.13 0-100 pg/mL Microbiology Date/Time Source Procedure Growth Status 09/21/24 12:29 Urine - Catheterized Urine Culture - Preliminary Resulted Assessment Flash pulmonary edema, rule out renal artery stenosis Acute on chronic decompensated HFpEF, NYHA class III Mild to moderate mitral regurgitation Peripheral vascular disease status post PTCA x 4 JOANA (on Plavix) Dyslipidemia Acute hypoxic respiratory failure secondary to pneumonia COPD Type 2 diabetes mellitus, uncontrolled (hgb A1c 8.6%) Tobacco use Plan/Recommendation We will continue with the following plan/recommendations (): * Transthoracic echocardiogram reveals EF 50% * Diuresis as tolerated * BP control * Consider adding spironolactone with stable potassium * Renal ultrasound * Continue single antiplatelet therapy and lipid-lowering agent * Close Cardiac surveillance Case discussed with . Thank you for allowing us to care for this patient. Please call with any questions or concerns. Critical care time spent: 40 minutes This medical document was created using an electronic medical record system with voice recognition software and computerized dictation system. Although this document has been carefully reviewed, there might still be some phonetic and typographical errors. Occasional wrong-word or ``sound-alike substitutions may have occurred due to the inherent limitations of voice recognition software. These areas are purely typographical due to imperfections of the software programs and do not reflect any compromise in the patient's medical care. Please read the chart carefully and recognize, using context, where these substitutions have occurred. Plan discussed with: Patient NYHA Physical activity limitations: Class3(Marked) ordinary (activity causes symtoms) Date of Service: Sep 22, 2024 Billing Provider: MAGNO SEGURA Cardiology Common Codes: [id number] INP/OBS CARE (High) Cardiology Consultation Codes: [id number] CONSULT <45MIN MAGNO SEGURA Sep 22, 2024 14:29
[2024-09-23] VITALS (16 sets, daily range): BP systolic 148–165; BP diastolic 65–90; PULSE 74–85; RESP 14–18; TEMP 97.5–98.1; O2SAT 95–100
--- NOTE | 2024-09-23 05:01 | DVH ---
INDICATION: Hypertension TECHNIQUE: Multiple real-time sonographic images of the kidneys and bladder were obtained. Duplex Doppler evaluation including color Doppler and spectral/pulsed waveform analysis of the bilate ral renal arteries was performed. COMPARISON: None FINDINGS: The right kidney measures 13.1 cm in length. The right renal echogenicity, contour and cortical thick ness are within normal limits. No hydronephrosis or large masses/calculi are seen. The left kidney measures 11.3 cm in length. The left renal echogenicity, contour, and cortical thickn ess are within normal limits. No hydronephrosis or large masses/calculi are seen. Aorta peak systolic velocity, 48 cm/s Right renal artery peak systolic velocity, 76 cm/s (< 180 cm/s = normal). Left renal artery peak systolic velocity 95 cm/s (< 180 cm/s = normal). Right RAR : 1.6 (< 3.5, normal) Left RAR 2.0 (< 3.5, normal) Right RI: 0.8 (< 0.75, normal) Left RI: 0.8 (< 0.75, normal) IMPRESSION: No findings to suggest renal artery stenosis. *Jennifer Baca Techniques in Noninvasive Vascular Diagnosis 2002
[2024-09-23 07:15] LABS: Basophils # (auto) 0.1 10 ^3/uL (0-0.2); Basophils % (auto) 0.6 % (0.0-2.0); Eosinophils # (auto) 0.4 10 ^3/uL (0-0.8); Eosinophils % (auto) 3.3 % (0.0-7.0); Hematocrit 38.5 % (41.0-53.0); Lymphocytes # (auto) 2.8 10 ^3/uL (0.4-5.4); Lymphocytes % (auto) 22.2 % (10.0-50.0); Mean Corpuscular Hemoglobin 30.2 pg (28.0-32.0); Mean Corpuscular Hgb Conc. 33.7 g/dL (32.0-36.0); Mean Corpuscular Volume 89.5 fL (80.0-100.0); Neutrophils # (auto) 8.2 10 ^3/uL (1.6-8.6); Neutrophils % (auto) 65.9 % (37.0-80.0); Nucleated Red Blood Cells % 0.1 %; Platelet Count (auto) 292 10^3/uL (140-450); Red Cell Distribution Width 14.2 % (11.8-14.3); White Blood Cell 12.5 10^3/uL (4.4-10.8)
[2024-09-23 07:21] LABS: Cholesterol 138 mg/dL (< 200); Triglycerides 84 mg/dL (< 150)
[2024-09-23 07:22] LABS: LDL Cholesterol 83 mg/dL (< 100)
[2024-09-23 07:35] LABS: HDL Cholesterol 40 mg/dL (40-59)
--- NOTE | 2024-09-23 10:20 | DVHPN2 ---
Subjective Patient reports that his breathing has slightly improved. Reviewed: Care Plan, H&P, Labs, Medications Changes from previous H/P or p: No Changes General: Per HPI Objective Vitals Vital Signs Date Time Temp Pulse Resp B/P (MAP) Pulse Ox O2 Delivery O2 Flow Rate FiO2 09/23/24 10:11 78 150/87 09/23/24 09:00 97.5 18 97 97.5 09/23/24 07:28 Nasal Cannula* 4 36 Intake/Output Intake and Output 09/23/24 07:00 Intake Total 2010 ml Output Total 2480 ml Balance -470 ml Intake Oral 1460 ml IV Total 550 ml Output Urine Total 2480 ml General Appearance: Alert, Oriented X3, Cooperative, severe distress HEENT: Atraumatic, PERRLA Neck: Carotid [place] Cardiovascular: Normal S1, Normal S2 Abdomen: Normal bowel sounds Musculoskeletal: Normal sensory function, Normal motor function Skin: Dry, Intact Psych/Mental Status: Mental status NL, Mood NL Medications Current Medications Medications Dose Ordered Sig/Marlo Route Start Time Stop Time Status Last Admin Dose Admin Albuterol 2.5 mg Q6HPRN PRN NEB 09/17/24 20:30 09/19/24 22:10 2.5 MG Atorvastatin Calcium 40 mg HS PO 09/17/24 22:00 09/21/24 21:12 40 MG Clopidogrel Bisulfate 75 mg DAILY PO 09/18/24 10:00 09/23/24 10:11 75 MG Empaglifozin 10 mg DAILY PO 09/18/24 10:00 09/23/24 10:10 10 MG Gabapentin 100 mg TID PO 09/17/24 22:00 09/23/24 05:23 100 MG Lisinopril 20 mg DAILY PO 09/18/24 10:00 09/23/24 10:11 20 MG Ipratropium [place] 0.5 mg Q6HPRN PRN NEB 09/17/24 20:30 09/19/24 22:10 0.5 MG Azithromycin 250 ml @ 125 mls/hr DAILY IV 09/18/24 10:00 09/23/24 10:11 125 MLS/HR Ondansetron HCl 4 mg Q4HP PRN IV 09/17/24 20:30 Acetaminophen 650 mg Q6HP PRN PO 09/17/24 20:30 Diagnostic Test (Pha) 1 strip ACHS 09/18/24 17:00 09/23/24 05:34 1 STRIP Insulin Human Regular HS SC 09/18/24 22:00 09/21/24 21:25 4 UNITS Insulin Human Regular AC SC 09/18/24 17:00 09/23/24 05:34 3 UNITS Dextrose 50 ml UD PRN IV 09/18/24 12:45 Carvedilol 12.5 mg Q12HR PO 09/19/24 10:00 09/23/24 10:11 12.5 MG Hydralazine HCl 10 mg Q6HP PRN IV 09/19/24 04:00 09/22/24 01:48 10 MG Piperacillin Sod/ Tazobactam Sod 100 ml @ 25 mls/hr Q8HR IV 09/19/24 14:00 09/23/24 05:24 25 MLS/HR Albuterol 2.5 mg Q6HR NEB 09/20/24 00:00 09/23/24 07:28 2.5 MG Ipratropium [place] 0.5 mg Q6HR NEB 09/20/24 00:00 09/23/24 07:28 0.5 MG Laboratory Results Laboratory Tests 09/21/24 11:57 09/23/24 06:00 Lipid panel Test 09/23/24 06:00 Cholesterol Level 138 mg/dL (< 200) HDL Cholesterol 40 mg/dL (40-59) Triglycerides Level 84 mg/dL (< 150) HgA1c, TSH Test 09/23/24 06:00 Thyroid Stimulating Hormone (TSH) 2.14 uIU/mL (0.55-4.78) Urinalysis Test 09/19/24 02:30 Urine Color Light-yellow (Yellow) Urine Clarity Clear (Clear) Urine pH 6.0 (5.0-9.0) Urine Specific [place] 1.019 (1.001-1.035) Urine Protein 3+ (Negative) H Urine Ketones Negative (Negative) Urine Blood 1+ /uL (Negative) H Urine Nitrite Negative (Negative) Urine Bilirubin Negative (Negative) Urine Urobilinogen Normal mg/dL (Negative) Urine Leukocyte Esterase Negative /uL (Negative) Urine RBC 2 /hpf (0 - 3) Urine Microscopic WBC 2 /HPF (0-3) Urine Squamous Epithelial Cells None seen /hpf (<5) Urine Bacteria None seen /hpf (None Seen) Urine Glucose 4+ mg/dL (Normal) H Microbiology Microbiology Date/Time Source Procedure Growth Status 09/21/24 12:29 Urine - Catheterized Urine Culture - Final Complete Labs and/or images reviewed: Labs reviewed by me, Image(s) reviewed by me Assessment/Plan Assessment/Plan Impression: -acute hypoxic respiratory failure -community-acquired pneumonia, probable Gram-positive/Gram-negative etiology -rule out sepsis -acute decompensated diastolic heart failure,HefPef, preserved ejection fraction -diabetes mellitus, uncontrolled -tobacco abuse -COPD -acute kidney injury,? Vasomotor nephropathy -bilateral pleural effusion Plan: Events: Patient currently on nasal cannula 4 liters/minute. Reviewed cardiology recommendations. Discussed case today; recommend getting stress test results from one year ago -V/Q scan: negative for PE -repeat EKG -serial troponin: Within normal limits -O2 supplementation to keep saturation greater than 92% -continue antibiotic therapy with Zosyn and azithromycin -bronchodilators -regular insulin sliding scale, increase to moderate scale -chest ultrasound Total time spent with patient discussing and formulating plan of care: 35 minutes. This medical document was created using an electronic medical record system with [employer] dictation system. Although this document has been carefully reviewed, there may still be some phonetic and typographical errors. These areas are purely typographical due to imperfections of the software programs, and do not reflect any compromise in the patient's medical care. Plan discussed with: Patient, Other (RN) My Orders Orders - BARTOLOME MICHAEL NP Procedure Category Date Status Time Furosemide Tablet PHA 09/23/24 Transmitted (Lasix Tablet) 10:30 Date of Service: Sep 23, 2024 Billing Provider: BARTOLOME MICHAEL NP Common Visit Codes: [id number] INP/OBS CARE(HIGH) BARTOLOME MICHAEL NP Sep 23, 2024 10:20
[2024-09-23] MEDS: FUROSEMIDE 20 MG TAB PO SCH (10:52)
--- NOTE | 2024-09-23 11:19 | ECG ---
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
--- NOTE | 2024-09-23 11:38 | DVH ---
US CHEST ULTRASOUND, HISTORY: assess bilateral pleural effusions COMPARISON(S): None TECHNICAL DATA: Transverse and longitudinal images are obtained of the chest. FINDING: IMPRESSION(S): Small to moderate bilateral pleural effusions.
--- NOTE | 2024-09-23 12:56 | DVHPN2 ---
Consult Progress Note Subjective Other Systems: Denies any cardiac symptoms at time of assessment Objective vital signs Vital Sign Date Time Temp Pulse Resp B/P (MAP) Pulse Ox O2 Delivery O2 Flow Rate FiO2 09/23/24 11:11 82 141/70 09/23/24 09:00 97.5 18 97 97.5 09/23/24 08:00 Oxymizer 4 N/A Total Intake and Output 09/22/24 09/22/24 09/23/24 15:00 23:00 07:00 Intake Total 350 ml 1180 ml 480 ml Output Total 1300 ml 1180 ml Balance 350 ml -120 ml -700 ml medications Current Medications Medications Dose Ordered Sig/Marlo Route Start Time Stop Time Status Last Admin Dose Admin Albuterol 2.5 mg Q6HPRN PRN NEB 09/17/24 20:30 09/19/24 22:10 2.5 MG Atorvastatin Calcium 40 mg HS PO 09/17/24 22:00 09/21/24 21:12 40 MG Clopidogrel Bisulfate 75 mg DAILY PO 09/18/24 10:00 09/23/24 10:11 75 MG Empaglifozin 10 mg DAILY PO 09/18/24 10:00 09/23/24 10:10 10 MG Gabapentin 100 mg TID PO 09/17/24 22:00 09/23/24 05:23 100 MG Lisinopril 20 mg DAILY PO 09/18/24 10:00 09/23/24 10:11 20 MG Ipratropium [place] 0.5 mg Q6HPRN PRN NEB 09/17/24 20:30 09/19/24 22:10 0.5 MG Azithromycin 250 ml @ 125 mls/hr DAILY IV 09/18/24 10:00 09/23/24 10:11 125 MLS/HR Ondansetron HCl 4 mg Q4HP PRN IV 09/17/24 20:30 Acetaminophen 650 mg Q6HP PRN PO 09/17/24 20:30 Diagnostic Test (Pha) 1 strip ACHS 09/18/24 17:00 09/23/24 11:36 1 STRIP Insulin Human Regular HS SC 09/18/24 22:00 09/21/24 21:25 4 UNITS Insulin Human Regular AC SC 09/18/24 17:00 09/23/24 11:39 9 UNITS Dextrose 50 ml UD PRN IV 09/18/24 12:45 Carvedilol 12.5 mg Q12HR PO 09/19/24 10:00 09/23/24 10:11 12.5 MG Hydralazine HCl 10 mg Q6HP PRN IV 09/19/24 04:00 09/22/24 01:48 10 MG Piperacillin Sod/ Tazobactam Sod 100 ml @ 25 mls/hr Q8HR IV 09/19/24 14:00 09/23/24 05:24 25 MLS/HR Albuterol 2.5 mg Q6HR NEB 09/20/24 00:00 09/23/24 07:28 2.5 MG Ipratropium [place] 0.5 mg Q6HR NEB 09/20/24 00:00 09/23/24 07:28 0.5 MG Furosemide 20 mg DAILY PO 09/23/24 10:30 09/23/24 10:52 20 MG Examination: GENERAL:Normal, LUNGS:Abnormal (Diminished bilateral bases), CVS:Normal, NEURO:Normal laboratory and microbiology Laboratory Tests 09/23/24 06:00 09/21/24 11:57 Test 09/21/24 11:57 Range/Units Serum Glucose 312 #H 74-106 mg/dL Problem List/Assessment/Plan Problem List/Assessment/Plan Flash pulmonary edema, rule out coronary artery disease Acute on chronic decompensated HFpEF, NYHA class III Mild to moderate mitral regurgitation Peripheral vascular disease status post PTCA x 4 JOANA (on Plavix) Dyslipidemia Acute hypoxic respiratory failure secondary to pneumonia COPD Bilateral pleural effusions Ruled out renal artery stenosis Acute kidney injury Type 2 diabetes mellitus, uncontrolled (hgb A1c 8.6%) Tobacco use Plan/Recommendation (): * Transthoracic echocardiogram reveals EF 50% * Diuresis as tolerated * BP control * Consider adding spironolactone with stable potassium * Renal ultrasound: negative for stenosis * Continue single antiplatelet therapy and lipid-lowering agent * Close Cardiac surveillance Case discussed with . Patient may benefit from coronary angiogram with left heart catheterization. The procedure was discussed with the patient in full detail including risks and benefits. Risks include but are not limited to bleeding, contrast-induced nephropathy, stroke, and even . The patient understands and is agreeable to undergo the procedure. We schedule the patient at first availability on 09/24/24 if renal function permits. Thank you for allowing us to care for this patient. Please call with any questions or concerns. This medical document was created using an electronic medical record system with voice recognition software and computerized dictation system. Although this document has been carefully reviewed, there might still be some phonetic and typographical errors. Occasional wrong-word or ``sound-alike substitutions may have occurred due to the inherent limitations of voice recognition software. These areas are purely typographical due to imperfections of the software programs and do not reflect any compromise in the patient's medical care. Please read the chart carefully and recognize, using context, where these substitutions have occurred. Plan discussed with: Patient Date of Service: Sep 23, 2024 Billing Provider: MAGNO SEGURA Common Visit Codes: [id number] INP/OBS CARE(HIGH) MAGNO SEGURA Sep 23, 2024 12:56
[2024-09-23 13:32] LABS: Chloride 105 mmol/L (98-107); Potassium 4.2 mmol/L (3.5-5.1); Sodium 138 mmol/L (136-145)
[2024-09-23 13:33] LABS: Anion Gap 8 (5-15); Carbon Dioxide 25 mmol/L (20-31)
[2024-09-23 13:38] LABS: BUN/Creatinine Ratio 21.1 (10.0-20.0); Blood Urea Nitrogen 42 mg/dL (9-23); Calcium 8.5 mg/dL (8.7-10.4); Glucose 182 mg/dL (74-106)
[2024-09-23] MEDS: SODIUM BICARB 8.4% 50Meq/50ml SYR Vial IV ONE (17:46)
[2024-09-23] MEDS: SODIUM BICARB 50mEq/50ml Vial 50 ML in SOD CHL 0.45% 1,000 ML IV ONE (18:02)
[2024-09-23] MEDS: ACETYLCYSTEINE 10 %(100MG/ML) SOL 4ML NEB SCH (19:26)
[2024-09-24] VITALS (23 sets, daily range): BP systolic 126–201; BP diastolic 65–92; PULSE 58–85; RESP 11–20; TEMP 97.3–98.8; O2SAT 94–100
[2024-09-24 06:29] LABS: Calcium 8.9 mg/dL (8.7-10.4); Chloride 104 mmol/L (98-107); Potassium 4.3 mmol/L (3.5-5.1); Sodium 138 mmol/L (136-145)
[2024-09-24 06:30] LABS: Anion Gap 6 (5-15); Carbon Dioxide 28 mmol/L (20-31)
[2024-09-24 06:35] LABS: BUN/Creatinine Ratio 20.7 (10.0-20.0); Glucose 88 mg/dL (74-106)
[2024-09-24 06:37] LABS: Basophils # (auto) 0.1 10 ^3/uL (0-0.2); Basophils % (auto) 0.4 % (0.0-2.0); Eosinophils # (auto) 0.4 10 ^3/uL (0-0.8); Eosinophils % (auto) 2.6 % (0.0-7.0); Hematocrit 41.4 % (41.0-53.0); Hemoglobin 13.7 g/dL (13.5-17.5); Lymphocytes # (auto) 1.9 10 ^3/uL (0.4-5.4); Lymphocytes % (auto) 11.6 % (10.0-50.0); Mean Corpuscular Hemoglobin 29.5 pg (28.0-32.0); Mean Corpuscular Hgb Conc. 33.1 g/dL (32.0-36.0); Mean Corpuscular Volume 89.2 fL (80.0-100.0); Monocytes # (auto) 1.2 10 ^3/uL (0-1.3); Monocytes % (auto) 7.2 % (0.0-12.0); Neutrophils # (auto) 12.6 10 ^3/uL (1.6-8.6); Neutrophils % (auto) 78.2 % (37.0-80.0); Platelet Count (auto) 311 10^3/uL (140-450); Red Blood Cells 4.65 10^6/uL (4.5-5.90); Red Cell Distribution Width 14.6 % (11.8-14.3); White Blood Cell 16.2 10^3/uL (4.4-10.8)
[2024-09-24 06:40] LABS: Blood Urea Nitrogen 35 mg/dL (9-23)
[2024-09-24 07:14] LABS: INR 1.01 (0.9-1.15); Partial Thromboplastin Time 29.5 SEC (24.5-34.5); Prothrombin Time 10.7 sec (9.3-11.8)
--- NOTE | 2024-09-24 10:14 | DVHPN2 ---
Subjective Reporting shortness of breath today. Reviewed: Care Plan, H&P, Labs, Medications Changes from previous H/P or p: No Changes General: Per HPI Objective Vitals Vital Signs Date Time Temp Pulse Resp B/P (MAP) Pulse Ox O2 Delivery O2 Flow Rate FiO2 09/24/24 09:00 97.5 79 17 167/69 (101) 97 97.5 09/24/24 06:27 Nasal Cannula* 2 28 Intake/Output Intake and Output 09/24/24 07:00 Intake Total 900 ml Output Total 5400 ml Balance -4500 ml Intake Oral 800 ml IV Total 100 ml Output Urine Total 5400 ml General Appearance: Alert, Oriented X3, Cooperative, severe distress HEENT: Atraumatic, PERRLA Neck: Carotid [place] Lungs: Clear to auscultation, Normal air movement, Other (Decreased breath sounds at bases) Cardiovascular: Normal S1, Normal S2 Abdomen: Normal bowel sounds Musculoskeletal: Normal sensory function, Normal motor function Skin: Dry, Intact Psych/Mental Status: Mental status NL, Mood NL Medications Current Medications Medications Dose Ordered Sig/Marlo Route Start Time Stop Time Status Last Admin Dose Admin Albuterol 2.5 mg Q6HPRN PRN NEB 09/17/24 20:30 09/19/24 22:10 2.5 MG Atorvastatin Calcium 40 mg HS PO 09/17/24 22:00 09/23/24 22:33 40 MG Clopidogrel Bisulfate 75 mg DAILY PO 09/18/24 10:00 09/23/24 10:11 75 MG Empaglifozin 10 mg DAILY PO 09/18/24 10:00 09/23/24 10:10 10 MG Gabapentin 100 mg TID PO 09/17/24 22:00 09/24/24 05:41 100 MG Lisinopril 20 mg DAILY PO 09/18/24 10:00 09/23/24 10:11 20 MG Ipratropium [place] 0.5 mg Q6HPRN PRN NEB 09/17/24 20:30 09/19/24 22:10 0.5 MG Azithromycin 250 ml @ 125 mls/hr DAILY IV 09/18/24 10:00 09/23/24 10:11 125 MLS/HR Ondansetron HCl 4 mg Q4HP PRN IV 09/17/24 20:30 Acetaminophen 650 mg Q6HP PRN PO 09/17/24 20:30 Diagnostic Test (Pha) 1 strip ACHS 09/18/24 17:00 09/24/24 05:49 1 STRIP Insulin Human Regular HS SC 09/18/24 22:00 09/23/24 22:41 6 UNITS Insulin Human Regular AC SC 09/18/24 17:00 09/23/24 17:22 2 UNITS Dextrose 50 ml UD PRN IV 09/18/24 12:45 Carvedilol 12.5 mg Q12HR PO 09/19/24 10:00 09/23/24 22:33 12.5 MG Hydralazine HCl 10 mg Q6HP PRN IV 09/19/24 04:00 09/22/24 01:48 10 MG Piperacillin Sod/ Tazobactam Sod 100 ml @ 25 mls/hr Q8HR IV 09/19/24 14:00 09/24/24 05:44 25 MLS/HR Albuterol 2.5 mg Q6HR NEB 09/20/24 00:00 09/24/24 06:27 2.5 MG Ipratropium [place] 0.5 mg Q6HR NEB 09/20/24 00:00 09/24/24 06:27 0.5 MG Furosemide 20 mg DAILY PO 09/23/24 10:30 09/23/24 10:52 20 MG Acetylcysteine 100 mg Q6HR NEB 09/23/24 18:00 09/24/24 06:27 100 MG Laboratory Results Laboratory Tests 09/24/24 05:25 Chemistry Test 09/24/24 05:25 Calcium Level 8.9 mg/dL (8.7-10.4) Coagulation Test 09/24/24 05:25 Prothrombin Time 10.7 sec (9.3-11.8) Prothrombin Time INR 1.01 (0.9-1.15) Activated Partial Thromboplast Time 29.5 SEC (24.5-34.5) Urinalysis Test 09/19/24 02:30 Urine Color Light-yellow (Yellow) Urine Clarity Clear (Clear) Urine pH 6.0 (5.0-9.0) Urine Specific [place] 1.019 (1.001-1.035) Urine Protein 3+ (Negative) H Urine Ketones Negative (Negative) Urine Blood 1+ /uL (Negative) H Urine Nitrite Negative (Negative) Urine Bilirubin Negative (Negative) Urine Urobilinogen Normal mg/dL (Negative) Urine Leukocyte Esterase Negative /uL (Negative) Urine RBC 2 /hpf (0 - 3) Urine Microscopic WBC 2 /HPF (0-3) Urine Squamous Epithelial Cells None seen /hpf (<5) Urine Bacteria None seen /hpf (None Seen) Urine Glucose 4+ mg/dL (Normal) H Microbiology Microbiology Date/Time Source Procedure Growth Status 09/21/24 12:29 Urine - Catheterized Urine Culture - Final Complete Labs and/or images reviewed: Labs reviewed by me, Image(s) reviewed by me Assessment/Plan Assessment/Plan Impression: -acute hypoxic respiratory failure -community-acquired pneumonia, probable Gram-positive/Gram-negative etiology -rule out sepsis -acute decompensated diastolic heart failure,HefPef, preserved ejection fraction -diabetes mellitus, uncontrolled -tobacco abuse -COPD -acute kidney injury,? Vasomotor nephropathy -bilateral pleural effusion -right BKA Plan: Events: Plans for left heart catheterization today. Also has plans for bilateral thoracentesis. Discussed plan of care with the patient. All questions answered. Renal function improved with sodium bicarbonate drip. -O2 supplementation to keep saturation greater than 92% -continue antibiotic therapy with Zosyn and azithromycin -bronchodilators -regular insulin sliding scale, increase to moderate scale -repeat labs in a.m. Total time spent with patient discussing and formulating plan of care: 35 minutes. This medical document was created using an electronic medical record system with [employer] dictation system. Although this document has been carefully reviewed, there may still be some phonetic and typographical errors. These areas are purely typographical due to imperfections of the software programs, and do not reflect any compromise in the patient's medical care. Plan discussed with: Patient, Other (RN) My Orders Orders - BARTOLOME MICHAEL NP Procedure Category Date Status Time Furosemide Tablet PHA 09/23/24 In Process (Lasix Tablet) 10:30 Chest Ultrasound US 09/23/24 Resulted 10:17 Acetylcysteine PHA 09/23/24 In Process Inhalation 10% 18:00 * Radiologist Consult CONS 09/23/24 Transmitted 17:00 Date of Service: Sep 24, 2024 Billing Provider: BARTOLOME MICHAEL NP Common Visit Codes: [id number] INP/OBS CARE(HIGH) BARTOLOME MICHAEL NP Sep 24, 2024 10:14
[2024-09-24] MEDS: IODIXANOL 320MG/ML 100ML BTL IV ONE ×2 (12:55→13:43)
[2024-09-24] MEDS: ANGIOMAX 250 MG VIAL IV ONE (12:56)
[2024-09-24] MEDS: MIDAZOLAM HCL 2MG/2ML 2ml VIAL (1mg/ml) ONE (12:57)
[2024-09-24] MEDS: SODIUM CHL 0.9% 0 ML ONE (12:57)
[2024-09-24] MEDS: HEPARIN SODIUM (PORCINE) 5000 UNITS/ML 1ML VIAL ONE (12:57)
[2024-09-24] MEDS: fentaNYL CITRATE 100 MCG/2 ML VL ONE (12:57)
[2024-09-24] MEDS: VERAPAMIL 2.5MG/ML INJ 2ML VIAL IV ONE (12:57)
[2024-09-24] MEDS: LIDOCAINE 2%HCL (LOCAL ANESTH.) INJ 20ML MDV ONE (12:57)
--- NOTE | 2024-09-24 14:19 | DVHOP2 ---
Operative Report - 2 Report Details Date: 09/24/24 Preop Diagnosis: CAD Postop Diagnosis: Mild CAD Surgeon: Margarita Shell MD Anesthesiologist: Conscious sedation Anesthesia: Mac, Local (Patient was administered Versed and fentanyl. I personally requested in order the medication and monitored the patient throughout the entirety of the procedure. No complications.) Consent: The patient was informed of the risks and benefits of the procedure. These include but are not limited to complications of anesthesia, postoperative infection, incomplete relief of symptoms, recurrence of symptoms, damage to blood vessels, nerves and tendons, deep venous thrombosis, pulmonary embolism and possible need for repeat surgery in the future. Complications: No complications. Estimated Blood Loss: 1 cc Findings: No significant CAD mild plaquing of the RCA Indications for Surgery: Flash pulmonary edema Name of Procedure Performed Left heart catheterization bilateral cine coronary angiography and left ventriculography. Procedure Details Procedure Details: Prior local anesthesia with 2% lidocaine to the right wrist and full informed consent obtained the patient was prepped and draped in usual fashion followed by placement of a six Palestinian sheath into the right radial artery through which a Devante catheter was used for ventriculography and cannulation of both right and left coronary ostia without complications. Hemodynamics aortic blood pressure was 130/70. End-diastolic pressure was 10. There was no gradient across the aortic valve on pullback. Coronary anatomy: The RCA is a large dominant vessel is normal in its proximal mid and distal segments with only mild plaquing at the mid RCA. Left main is large and normal. Left anterior descending is a large vessel it is normal in its proximal mid and distal segments. Diagonals and septals are normal. The circumflex is large with two marginals free of significant disease. Circumflex system is normal. Ventriculography in the HUYNH projection shows an EF of 65%. Impression: Normal left ventricular end-diastolic pressure at rest. Normal eje ction fraction. No significant CAD. Recommendations medical therapy is warranted continue with risk factor modifications. Condition Good Disposition Still a Patient Date of Service: Sep 24, 2024 Billing Provider: MARGARITA SHELL Sr., MD Cardiology Common Codes: [id number] INP/OBS CARE (High) Cardiology Procedure Codes: [id number] VESSEL W/I VASC FAM, [id number] HEART CATH W/INTRA INJ MARGARITA SHELL Sr., MD Sep 24, 2024 14:19
[2024-09-24] MEDS: LABETALOL HCL 20 MG/4 ML VL IV ONE ×2 (15:38)
[2024-09-24] MEDS: hydrALAZINE HCL 25 MG TAB PO SCH (16:45)
[2024-09-24] MEDS: SPIRONOLACTONE 25 MG TAB PO SCH (18:03)
[2024-09-25] VITALS (16 sets, daily range): BP systolic 134–151; BP diastolic 51–92; PULSE 71–85; RESP 15–19; TEMP 97–98.7; O2SAT 19–100
[2024-09-25 06:48] LABS: Basophils # (auto) 0 10 ^3/uL (0-0.2); Basophils % (auto) 0.3 % (0.0-2.0); Eosinophils # (auto) 0.5 10 ^3/uL (0-0.8); Eosinophils % (auto) 3.8 % (0.0-7.0); Hematocrit 39.7 % (41.0-53.0); Hemoglobin 12.9 g/dL (13.5-17.5); Lymphocytes # (auto) 1.7 10 ^3/uL (0.4-5.4); Lymphocytes % (auto) 13.4 % (10.0-50.0); Mean Corpuscular Hemoglobin 29.3 pg (28.0-32.0); Mean Corpuscular Hgb Conc. 32.6 g/dL (32.0-36.0); Monocytes % (auto) 7.6 % (0.0-12.0); Neutrophils # (auto) 9.5 10 ^3/uL (1.6-8.6); Neutrophils % (auto) 74.9 % (37.0-80.0); Nucleated Red Blood Cells % 0.1 %; Platelet Count (auto) 293 10^3/uL (140-450); Red Blood Cells 4.41 10^6/uL (4.5-5.90); Red Cell Distribution Width 14.1 % (11.8-14.3); White Blood Cell 12.7 10^3/uL (4.4-10.8)
[2024-09-25 06:51] LABS: Chloride 104 mmol/L (98-107); Potassium 4.4 mmol/L (3.5-5.1); Sodium 137 mmol/L (136-145)
[2024-09-25 06:52] LABS: Anion Gap 7 (5-15); Carbon Dioxide 26 mmol/L (20-31)
[2024-09-25 06:53] LABS: Calcium 8.6 mg/dL (8.7-10.4)
[2024-09-25 06:57] LABS: BUN/Creatinine Ratio 18.9 (10.0-20.0)
[2024-09-25 07:03] LABS: Blood Urea Nitrogen 34 mg/dL (9-23); Glucose 155 mg/dL (74-106)
--- NOTE | 2024-09-25 09:03 | DVH ---
XY CHEST PORTABLE, HISTORY: POST THORACENTESIS COMPARISON: XY CHEST XRAY 1 VIEW on DOS: 09/22/24, XY CHEST XRAY 1 VIEW on DOS: 09/21/24, XY CHEST PORT ABLE on DOS: 09/20/24 XY CHEST XRAY 1 VIEW on DOS: 09/22/24, XY CHEST XRAY 1 VIEW on DOS: 09/21/24, XY CHEST PORTABLE on DOS: 09/20/24 TECHNICAL DATA: 1 view of the chest was obtained. FINDINGS: Lines and tubes: None Cardiomediastinal silhouette: normal Pulmonary vasculature: normal Lung expansion: normal Lung airspace: normal Lung interstitium: normal Pleura: normal Pneumothorax: no Bones: Unremarkable Other: no IMPRESSION: No acute intrathoracic abnormality. No pneumothorax seen.
--- NOTE | 2024-09-25 09:04 | DVH ---
US THORACENTESIS, HISTORY: PLEURAL EFFUSION PROCEDURE: Informed consent was obtained. The patient was seated on the bed. A limited localization u ltrasound of the left thorax was obtained, and the optimal approach was marked on the skin. The area was prepped with chlorhexidine which was allowed to dry and draped in the usual sterile fashion. Time out was performed. The skin and the soft tissues were infiltrated with 1% lidocaine. A 5.5 [place] ce ntesis needle catheter was advanced into left pleural space. Following aspiration of fluid, the cleo ter was advanced and the needle removed. About 1050 cc of fluid was drained. Specimen/s was/were sent for appropriate cultures/cytology/cultures and cytology. No immediate complication was identified. FINDINGS: Moderate left pleural effusion. Aspirated fluid is clear and serous. IMPRESSION: Successful left thoracentesis with 1.05L removed.
--- NOTE | 2024-09-25 12:19 | DVHPN2 ---
Consult Progress Note Subjective Patient reports: Feels better Other Systems: The patient remains in normal sinus rhythm on classroom monitor at time of assessment. Objective vital signs Vital Sign Date Time Temp Pulse Resp B/P (MAP) Pulse Ox O2 Delivery O2 Flow Rate FiO2 09/25/24 10:30 138/61 09/25/24 10:29 72 09/25/24 09:00 98.0 18 96 98.0 09/25/24 08:00 Nasal Cannula* 2 28 Total Intake and Output 09/24/24 09/24/24 09/25/24 15:00 23:00 07:00 Intake Total 300 ml 350 ml Output Total 1450 ml Balance 300 ml -1100 ml medications Current Medications Medications Dose Ordered Sig/Marlo Route Start Time Stop Time Status Last Admin Dose Admin Albuterol 2.5 mg Q6HPRN PRN NEB 09/17/24 20:30 09/19/24 22:10 2.5 MG Atorvastatin Calcium 40 mg HS PO 09/17/24 22:00 09/24/24 23:50 40 MG Clopidogrel Bisulfate 75 mg DAILY PO 09/18/24 10:00 09/25/24 10:28 75 MG Empaglifozin 10 mg DAILY PO 09/18/24 10:00 09/25/24 10:30 10 MG Gabapentin 100 mg TID PO 09/17/24 22:00 09/25/24 06:26 100 MG Lisinopril 20 mg DAILY PO 09/18/24 10:00 09/25/24 10:30 20 MG Ipratropium [place] 0.5 mg Q6HPRN PRN NEB 09/17/24 20:30 09/19/24 22:10 0.5 MG Azithromycin 250 ml @ 125 mls/hr DAILY IV 09/18/24 10:00 09/25/24 10:27 125 MLS/HR Ondansetron HCl 4 mg Q4HP PRN IV 09/17/24 20:30 Acetaminophen 650 mg Q6HP PRN PO 09/17/24 20:30 Diagnostic Test (Pha) 1 strip ACHS 09/18/24 17:00 09/25/24 06:34 1 STRIP Insulin Human Regular HS SC 09/18/24 22:00 09/24/24 23:53 6 UNITS Insulin Human Regular AC SC 09/18/24 17:00 09/25/24 06:28 2 UNITS Dextrose 50 ml UD PRN IV 09/18/24 12:45 Carvedilol 12.5 mg Q12HR PO 09/19/24 10:00 09/25/24 10:29 12.5 MG Hydralazine HCl 10 mg Q6HP PRN IV 09/19/24 04:00 09/24/24 12:55 10 MG Piperacillin Sod/ Tazobactam Sod 100 ml @ 25 mls/hr Q8HR IV 09/19/24 14:00 09/25/24 06:26 25 MLS/HR Albuterol 2.5 mg Q6HR NEB 09/20/24 00:00 09/25/24 06:34 2.5 MG Ipratropium [place] 0.5 mg Q6HR NEB 09/20/24 00:00 09/25/24 06:34 0.5 MG Furosemide 20 mg DAILY PO 09/23/24 10:30 09/25/24 10:28 20 MG Acetylcysteine 100 mg Q6HR NEB 09/23/24 18:00 09/25/24 06:34 100 MG Hydralazine HCl 50 mg Q12HR PO 09/24/24 16:45 09/25/24 10:28 50 MG Spironolactone 25 mg BIDD PO 09/24/24 18:00 09/25/24 06:34 25 MG Examination: GENERAL:Normal, LUNGS:Normal, CVS:Normal, NEURO:Normal laboratory and microbiology Laboratory Tests 09/25/24 05:52 Test 09/25/24 05:52 Range/Units Serum Glucose 155 H 74-106 mg/dL Problem List/Assessment/Plan Problem List/Assessment/Plan Flash pulmonary edema, ruled out coronary artery disease Acute on chronic decompensated HFpEF, NYHA class III Mild to moderate mitral regurgitation Peripheral vascular disease status post PTCA x 4 JOANA (on Plavix) Dyslipidemia Acute hypoxic respiratory failure secondary to pneumonia COPD Bilateral pleural effusions s/p left thoracentesis (1050mL out) Ruled out renal artery stenosis Acute kidney injury Type 2 diabetes mellitus, uncontrolled (hgb A1c 8.6%) Tobacco use Plan/Recommendation (): * Transthoracic echocardiogram reveals EF 50% * Diuresis as tolerated * BP control * Renal ultrasound: negative for stenosis * Continue single antiplatelet therapy and lipid-lowering agent * Close Cardiac surveillance Case discussed with Dr. Shell. The patient underwent a coronary angiogram with left heart catheterization on 09/24/2024 which revealed no significant coronary artery disease, thus no catheter based intervention was warranted. There is no further inpatient cardiac workup indicated at this time. The patient is scheduled to follow up with in the outpatient cardiac clinic on 10/23/24 at 1045am. Thank you for allowing us to care for this patient. Please call with any questions or concerns. This medical document was created using an electronic medical record system with voice recognition software and computerized dictation system. Although this document has been carefully reviewed, there might still be some phonetic and typographical errors. Occasional wrong-word or ``sound-alike substitutions may have occurred due to the inherent limitations of voice recognition software. These areas are purely typographical due to imperfections of the software programs and do not reflect any compromise in the patient's medical care. Please read the chart carefully and recognize, using context, where these substitutions have occurred. Plan discussed with: Patient Date of Service: Sep 25, 2024 Billing Provider: MAGNO SEGURA Common Visit Codes: [id number] INP/OBS CARE(HIGH) MAGNO SEGURA Sep 25, 2024 12:18
--- NOTE | 2024-09-25 13:26 | DVHPN2 ---
Subjective Patient continues to have shortness of breath, but reports it has improved today. Reviewed: Care Plan, H&P, Labs, Medications Changes from previous H/P or p: No Changes General: Per HPI Objective Vitals Vital Signs Date Time Temp Pulse Resp B/P (MAP) Pulse Ox O2 Delivery O2 Flow Rate FiO2 09/25/24 12:03 82 16 99 09/25/24 11:55 Room Air* 0 21 09/25/24 10:30 138/61 09/25/24 09:00 98.0 98.0 Intake/Output Intake and Output 09/25/24 07:00 Intake Total 650 ml Output Total 1450 ml Balance -800 ml Intake Oral 550 ml IV Total 100 ml Output Urine Total 1450 ml # Bowel Movements 2 General Appearance: Alert, Oriented X3, Cooperative, severe distress HEENT: Atraumatic, PERRLA Neck: Carotid [place] Lungs: Clear to auscultation, Normal air movement, Other (Decreased breath sounds at bases) Cardiovascular: Normal S1, Normal S2 Abdomen: Normal bowel sounds Musculoskeletal: Normal sensory function, Normal motor function Skin: Dry, Intact Psych/Mental Status: Mental status NL, Mood NL Medications Current Medications Medications Dose Ordered Sig/Marlo Route Start Time Stop Time Status Last Admin Dose Admin Albuterol 2.5 mg Q6HPRN PRN NEB 09/17/24 20:30 09/19/24 22:10 2.5 MG Atorvastatin Calcium 40 mg HS PO 09/17/24 22:00 09/24/24 23:50 40 MG Clopidogrel Bisulfate 75 mg DAILY PO 09/18/24 10:00 09/25/24 10:28 75 MG Empaglifozin 10 mg DAILY PO 09/18/24 10:00 09/25/24 10:30 10 MG Gabapentin 100 mg TID PO 09/17/24 22:00 09/25/24 06:26 100 MG Lisinopril 20 mg DAILY PO 09/18/24 10:00 09/25/24 10:30 20 MG Ipratropium [place] 0.5 mg Q6HPRN PRN NEB 09/17/24 20:30 09/19/24 22:10 0.5 MG Azithromycin 250 ml @ 125 mls/hr DAILY IV 09/18/24 10:00 09/25/24 10:27 125 MLS/HR Ondansetron HCl 4 mg Q4HP PRN IV 09/17/24 20:30 Acetaminophen 650 mg Q6HP PRN PO 09/17/24 20:30 Diagnostic Test (Pha) 1 strip ACHS 09/18/24 17:00 09/25/24 11:30 1 STRIP Insulin Human Regular HS SC 09/18/24 22:00 09/24/24 23:53 6 UNITS Insulin Human Regular AC SC 09/18/24 17:00 09/25/24 11:57 9 UNITS Dextrose 50 ml UD PRN IV 09/18/24 12:45 Carvedilol 12.5 mg Q12HR PO 09/19/24 10:00 09/25/24 10:29 12.5 MG Hydralazine HCl 10 mg Q6HP PRN IV 09/19/24 04:00 09/24/24 12:55 10 MG Piperacillin Sod/ Tazobactam Sod 100 ml @ 25 mls/hr Q8HR IV 09/19/24 14:00 09/25/24 06:26 25 MLS/HR Albuterol 2.5 mg Q6HR NEB 09/20/24 00:00 09/25/24 11:54 2.5 MG Ipratropium [place] 0.5 mg Q6HR NEB 09/20/24 00:00 09/25/24 11:55 0.5 MG Furosemide 20 mg DAILY PO 09/23/24 10:30 09/25/24 10:28 20 MG Acetylcysteine 100 mg Q6HR NEB 09/23/24 18:00 09/25/24 11:54 100 MG Hydralazine HCl 50 mg Q12HR PO 09/24/24 16:45 09/25/24 10:28 50 MG Spironolactone 25 mg BIDD PO 09/24/24 18:00 09/25/24 06:34 25 MG Laboratory Results Laboratory Tests 09/25/24 05:52 Chemistry Test 09/25/24 05:52 Calcium Level 8.6 mg/dL (8.7-10.4) L Urinalysis Test 09/19/24 02:30 Urine Color Light-yellow (Yellow) Urine Clarity Clear (Clear) Urine pH 6.0 (5.0-9.0) Urine Specific [place] 1.019 (1.001-1.035) Urine Protein 3+ (Negative) H Urine Ketones Negative (Negative) Urine Blood 1+ /uL (Negative) H Urine Nitrite Negative (Negative) Urine Bilirubin Negative (Negative) Urine Urobilinogen Normal mg/dL (Negative) Urine Leukocyte Esterase Negative /uL (Negative) Urine RBC 2 /hpf (0 - 3) Urine Microscopic WBC 2 /HPF (0-3) Urine Squamous Epithelial Cells None seen /hpf (<5) Urine Bacteria None seen /hpf (None Seen) Urine Glucose 4+ mg/dL (Normal) H Microbiology Microbiology Date/Time Source Procedure Growth Status 09/21/24 12:29 Urine - Catheterized Urine Culture - Final Complete Labs and/or images reviewed: Labs reviewed by me, Image(s) reviewed by me Assessment/Plan Assessment/Plan Impression: -acute hypoxic respiratory failure -community-acquired pneumonia, probable Gram-positive/Gram-negative etiology -rule out sepsis -acute decompensated diastolic heart failure,HefPef, preserved ejection fraction -diabetes mellitus, uncontrolled -tobacco abuse -COPD -acute kidney injury,? Vasomotor nephropathy -bilateral pleural effusion -right BKA Plan: Events: Patient had left heart catheterization without any noted blockage. Patient had thoracentesis of left pleural cavity today with over 1 L removed. Repeat chest x-ray benign other than significant right pleural effusion. Discussed with both patient as well as interventional radiologist. Plans for right thoracentesis tomorrow. Discharge planning thereafter. Continue to monitor for contrast induced nephropathy. -O2 supplementation to keep saturation greater than 92% -continue antibiotic therapy with Zosyn and azithromycin -bronchodilators -regular insulin sliding scale, increase to moderate scale -repeat labs in a.m. Total time spent with patient discussing and formulating plan of care: 35 minutes. This medical document was created using an electronic medical record system with [employer] dictation system. Although this document has been carefully reviewed, there may still be some phonetic and typographical errors. These areas are purely typographical due to imperfections of the software programs, and do not reflect any compromise in the patient's medical care. Plan discussed with: Patient, Other (RN) My Orders Orders - BARTOLOME MICHAEL SUGAR DRIER Procedure Category Date Status Time Hydralazine Hcl PHA 09/24/24 In Process Tablet (Apresoline 16:45 Spironolactone PHA 09/24/24 In Process (Aldactone) 18:00 * Purification Director CONS 09/25/24 Transmitted Consult Thoracentesis 09/26/24 Logged 08:00 Date of Service: Sep 25, 2024 Billing Provider: BARTOLOME MICHAEL NP Common Visit Codes: [id number] INP/OBS CARE(HIGH) BARTOLOME MICHAEL NP Sep 25, 2024 13:26
[2024-09-25 14:21] LABS: Body Fluid Red Blood Cells 140 CUMM (0-2000); Body Fluid White Blood Cells 330 CUMM (0-200)
[2024-09-25 14:40] LABS: Body Fluid Polymorphonuclear 45 % (0-25)
[2024-09-26] VITALS (12 sets, daily range): BP systolic 117–154; BP diastolic 48–92; PULSE 65–92; RESP 16–22; TEMP 97.2–98.1; O2SAT 91–100
[2024-09-26 07:33] LABS: Basophils # (auto) 0.1 10 ^3/uL (0-0.2); Basophils % (auto) 0.5 % (0.0-2.0); Eosinophils # (auto) 0.4 10 ^3/uL (0-0.8); Eosinophils % (auto) 3.4 % (0.0-7.0); Hematocrit 42.1 % (41.0-53.0); Hemoglobin 13.7 g/dL (13.5-17.5); Lymphocytes # (auto) 1.9 10 ^3/uL (0.4-5.4); Lymphocytes % (auto) 15.3 % (10.0-50.0); Mean Corpuscular Hemoglobin 29.3 pg (28.0-32.0); Mean Corpuscular Hgb Conc. 32.6 g/dL (32.0-36.0); Mean Corpuscular Volume 89.9 fL (80.0-100.0); Monocytes # (auto) 1.1 10 ^3/uL (0-1.3); Monocytes % (auto) 8.9 % (0.0-12.0); Neutrophils # (auto) 8.9 10 ^3/uL (1.6-8.6); Neutrophils % (auto) 71.9 % (37.0-80.0); Platelet Count (auto) 291 10^3/uL (140-450); Red Blood Cells 4.68 10^6/uL (4.5-5.90); Red Cell Distribution Width 14.3 % (11.8-14.3); White Blood Cell 12.4 10^3/uL (4.4-10.8)
--- NOTE | 2024-09-26 08:49 | DVH ---
XY CHEST PORTABLE, HISTORY: POST THORACENTESIS COMPARISON: XY CHEST PORTABLE on DOS: 09/25/24, XY CHEST XRAY 1 VIEW on DOS: 09/22/24, XY CHEST XRAY 1 VIEW on DOS: 09/21/24 XY CHEST PORTABLE on DOS: 09/25/24, XY CHEST XRAY 1 VIEW on DOS: 09/22/24, XY CHEST XRAY 1 VIEW on DOS: 09/21/24 TECHNICAL DATA: 1 view of the chest was obtained. FINDINGS: Lines and tubes: None Cardiomediastinal silhouette: normal Pulmonary vasculature: normal Lung expansion: normal Lung airspace: normal Lung interstitium: normal Pleura: normal Pneumothorax: no Bones: Unremarkable Other: no IMPRESSION: No pneumothorax visualized.
[2024-09-26] MEDS ORDERED: AMOX500T86 PO (08:52)
[2024-09-26] MEDS ORDERED: LISI20TA56 PO (08:52)
[2024-09-26] MEDS ORDERED: SPIR25TA PO (08:52)
--- NOTE | 2024-09-26 08:56 | DVH ---
US THORACENTESIS, HISTORY: Thora for pleural effusion PROCEDURE: Informed consent was obtained. The patient was seated on the bed. A limited localization u ltrasound of the right thorax was obtained, and the optimal approach was marked on the skin. The area was prepped with chlorhexidine which was allowed to dry and draped in the usual sterile fashion. Papito e out was performed. The skin and the soft tissues were infiltrated with 1% lidocaine. A 5.5 [place] c entesis needle catheter was advanced into right pleural space. Following aspiration of fluid, the cat heter was advanced and the needle removed. About 1050 cc of fluid was drained. No immediate complica tion was identified. FINDINGS: Small to moderate right pleural effusion. Aspirated fluid is clear and serous. IMPRESSION: Right thoracentesis with 1.05L removed.
--- NOTE | 2024-09-26 10:01 | DVHDS2 ---
Discharge Summary Date of Admission Sep 17, 2024 at 20:21 Date of Discharge: Sep 26, 2024 Admitting Diagnosis Acute on chronic respiratory failure Labs/Diagnostic Data: Laboratory Results Test 09/26/24 08:50 09/26/24 06:57 09/26/24 05:36 09/25/24 05:52 White Blood Count 12.4 10^3/uL (4.4-10.8) Red Blood Count 4.68 10^6/uL (4.5-5.90) Hemoglobin 13.7 g/dL (13.5-17.5) Hematocrit 42.1 % (41.0-53.0) Mean Corpuscular Volume 89.9 fL (80.0-100.0) Mean Corpuscular Hemoglobin 29.3 pg (28.0-32.0) Mean Corpuscular Hemoglobin Concent 32.6 g/dL (32.0-36.0) Red Cell Distribution Width 14.3 % (11.8-14.3) Platelet Count 291 10^3/uL (140-450) Mean Platelet Volume 8.3 fL (6.9-10.8) Neutrophils (%) (Auto) 71.9 % (37.0-80.0) Lymphocytes (%) (Auto) 15.3 % (10.0-50.0) Monocytes (%) (Auto) 8.9 % (0.0-12.0) Eosinophils (%) (Auto) 3.4 % (0.0-7.0) Basophils (%) (Auto) 0.5 % (0.0-2.0) Neutrophils # (Auto) 8.9 10 ^3/uL (1.6-8.6) Lymphocytes # (Auto) 1.9 10 ^3/uL (0.4-5.4) Monocytes # (Auto) 1.1 10 ^3/uL (0-1.3) Eosinophils # (Auto) 0.4 10 ^3/uL (0-0.8) Basophils # (Auto) 0.1 10 ^3/uL (0-0.2) Nucleated Red Blood Cells 0.0 % POC Glucose 139 mg/dl (70-106) Sodium Level 137 mmol/L (136-145) Potassium Level 4.4 mmol/L (3.5-5.1) Chloride Level 104 mmol/L (98-107) Carbon Dioxide Level 26 mmol/L (20-31) Anion Gap 7 (5-15) Blood Urea Nitrogen 34 mg/dL (9-23) Creatinine 1.80 mg/dL (0.700-1.30) Glomerular Filtration Rate Calc 42 mL/min (>90) BUN/Creatinine Ratio 18.9 (10.0-20.0) Serum Glucose 155 mg/dL (74-106) Calcium Level 8.6 mg/dL (8.7-10.4) Test 09/24/24 05:25 09/23/24 06:00 09/22/24 13:36 09/21/24 13:50 Prothrombin Time 10.7 sec (9.3-11.8) Prothrombin Time INR 1.01 (0.9-1.15) Activated Partial Thromboplast Time 29.5 SEC (24.5-34.5) Triglycerides Level 84 mg/dL (< 150) Cholesterol Level 138 mg/dL (< 200) LDL Cholesterol 83 mg/dL (< 100) HDL Cholesterol 40 mg/dL (40-59) Thyroid Stimulating Hormone (TSH) 2.14 uIU/mL (0.55-4.78) Troponin I High Sensitivity 18 ng/L (</=54) Blood Gas Specimen Type Arterial Blood Gas Sample Site Right radial Blood Gas Patient Temperature 37.0 Arterial Blood Date Drawn [id number] Arterial Blood pH 7.352 (7.350-7.450) Arterial Blood Partial Pressure CO2 40.7 mmHg (35.0-48.0) Arterial Blood Partial Pressure O2 122.7 mmHg (83.0-108.0) Arterial Blood HCO3 22.1 mmol/L (21.0-28.0) Arterial Blood Oxygen Saturation 98.0 % (94.0-98.0) Arterial Blood Base Excess -3.3 mmol/L (-2.0-3.0) Arterial Blood Oxyhemoglobin 97.3 % (94.0-98.0) Arterial Blood Carboxyhemoglobin 0.6 % (0.5-1.5) Arterial Blood Methemoglobin 0.1 % (0.0-1.5) Nehemias Test Yes Blood Gas Total Hemoglobin 14.10 g/dL (13.5-17.5) Blood Gas Set Respiration Rate 14.0 Blood Gas Modality Mask - bipap FiO2 % 60.0 Blood Gas EPAP 5 Blood Gas IPAP 12 Test 09/21/24 12:21 09/21/24 11:58 09/21/24 11:57 09/21/24 11:51 Blood Gas Critical Value Read Back Yes Blood Gas Notified Whom maribel Petty Blood Gas Notified Time [id number] Blood Gas Notified By Lactate Dehydrogenase 309 U/L (120-246) Total Bilirubin 0.4 mg/dL (0.2-1.0) Aspartate Amino Transferase (AST) 150 U/L (13-40) Alanine Aminotransferase (ALT) 77 U/L (7-40) Alkaline Phosphatase 315 U/L (46-116) Total Protein 6.5 g/dL (5.7-8.2) Albumin 3.8 g/dL (3.2-4.8) D-Dimer, Quantitative 0.80 mg/L FEU (0.0-0.49) Test 09/19/24 03:00 09/19/24 02:30 09/18/24 04:56 09/17/24 17:17 Influenza Type A Antigen Negative (Negative) Influenza Type B Antigen Negative (Negative) SARS-CoV-2 Antigen (Rapid) Negative (NEGATIVE) Urine Color Light-yellow (Yellow) Urine Clarity Clear (Clear) Urine pH 6.0 (5.0-9.0) Urine Specific Levels 1.019 (1.001-1.035) Urine Protein 3+ (Negative) Urine Ketones Negative (Negative) Urine Blood 1+ /uL (Negative) Urine Nitrite Negative (Negative) Urine Bilirubin Negative (Negative) Urine Urobilinogen Normal mg/dL (Negative) Urine Leukocyte Esterase Negative /uL (Negative) Urine RBC 2 /hpf (0 - 3) Urine Microscopic WBC 2 /HPF (0-3) Urine Squamous Epithelial Cells None seen /hpf (<5) Urine Bacteria None seen /hpf (None Seen) Urine Glucose 4+ mg/dL (Normal) Hemoglobin A1c 8.6 % A1C (<5.7) B-Type Natriuretic Peptide 463.13 pg/mL (0-100) Other Laboratory Tests 09/26/24 06:57 09/25/24 05:52 Brief Hx & Hospital Course: History of Present Illness 63-year-old male presents for evaluation of shortness for breath. Patient reports a day history of worsening shortness for despite taking his breathing treatments at home. Denies chest pain. No fever or chills. Cough. Course of hospitalization: Patient was found to be febrile, severely dyspneic, as well as having general malaise. Empiric antibiotic therapy was broadened to Zosyn and azithromycin. Patient's respiratory status improved. Several days after admission to the hospital, the patient had flash pulmonary edema. Patient was given IV diuresis. Echocardiogram reveals ejection fraction 50%. Patient had V/Q scan which was negative for PE. Patient also had CT scan of the chest which showed bilateral pleural effusions as well as bilateral opacities. Cardiology consultation was obtained. Patient underwent left heart catheterization which was negative for CAD amenable to intervention. Patient was continued on IV diuresis, subsequently undergoing thoracentesis to both lungs. Patient clinically states he feels better. He has been weaned off of oxygen. Patient will be discharged home with increased antihypertensives, addition of spironolactone, and continued antibiotic therapy with Augmentin 500 mg p.o. twice a day for additional five days. He will follow up with his PCP in one week. Patient was agreeable with discharge plan. All questions answered. Physical examination General: Alert and Oriented x3. No acute distress. Well-nourished. Eyes: EOMI. Anicteric. HENT: Moist mucous membranes. Lungs: Clear to auscultation bilaterally. No accessory muscle use. Cardiovascular: Regular rate and rhythm. No murmur. No JVD. Abdomen: Soft, non-tender and non-distended. No palpable masses. Extremities: No edema. Non-tender. Skin: No rashes or lesions. Warm. Neurologic: No focal neurological deficits. CN II-XII grossly intact, but not individually tested. Psychiatric: Cooperative. Appropriate mood and affect. Total time spent with patient discussing and formulating plan of care: 35 minutes. This medical document was created using an electronic medical record system with [employer] dictation system. Although this document has been carefully reviewed, there may still be some phonetic and typographical errors. These areas are purely typographical due to imperfections of the software programs, and do not reflect any compromise in the patient's medical care. Condition at Discharge: Good Final Diagnosis/Problems List Acute hypoxic respiratory failure Secondary diagnosis: -community-acquired pneumonia, probable Gram-positive/Gram-negative etiology -rule out sepsis -acute decompensated diastolic heart failure,HefPef, preserved ejection fraction -diabetes mellitus, uncontrolled -tobacco abuse -COPD -acute kidney injury,? Vasomotor nephropathy -bilateral pleural effusion -right BKA -flash pulmonary edema Discharge Disposition: Home Discharge Instruct/Medications Diet: Consistent carbohydrate, Cardiac 2g Na,low cholest Activity: No Restrictions, As Tolerated Follow Up/Referral: PCP in one week Medications: Augmentin 500 mg p.o. daily x5 days Lisinopril 20 mg p.o. daily Spironolactone 25 mg p.o. daily Continue all previous home medications per medication reconciliation for 36 Discharge Statement: "Patient was advised to return to the ER or call 911 if any headaches, dizziness, shortness of breath, chest pain, abdominal pain, bleeding, fevers, or worsening of medical condition. Patient was counseled about treatment plan, medications, possible side effects, patientverbalized understanding. All questions were answered to the best of my ability. This discharge took greater then 30 minutes in planning, reviewing documentation, counseling the patient, and discussing with other team members." ASSESSMENT ASSESSMENT Assessment Acute hypoxic respiratory failure Date of Service: Sep 26, 2024 Billing Provider: BARTOLOME MCIHAEL NP Common Visit Codes: [id number] DISCH DAY >30min BARTOLOME MICHAEL NP Sep 26, 2024 10:00
[2024-09-26 12:07] LABS: Protein, Body Fluid 1.3 g/dL (.)
[2024-09-26 12:36] LABS: Body Fluid Polymorphonuclear 15 % (0-25); Body Fluid Red Blood Cells 40 CUMM (0-2000); Body Fluid White Blood Cells 610 CUMM (0-200)
[2024-09-27 12:07] LABS: Protein, Body Fluid 1.3 g/dL (.)
== END 2024-09-26 13:30 | disposition home or self-care (01) | DRG 871 ==
LOC: EDBD 16:42 → ER 16:42 → OVERFLOW 20:21 → WEST WING 23:58 → TELE-WESTW 09-21 12:29 → TELE-CENTR 09-21 17:32
PROVIDERS: ADMIT Nurse Practitioner Acute Care; ATTEND Nurse Practitioner Acute Care
PROC: 5A09357 Assistance with Respiratory Ventilation, Less than 24 Consecutive Hours, Continuous Positive Airway Pressure (ICD-10-PCS; 2024-09-21)
PROC: 4A023N7 Measurement of Cardiac Sampling and Pressure, Left Heart, Percutaneous Approach (ICD-10-PCS; principal; 2024-09-24)
PROC: B211YZZ Fluoroscopy of Multiple Coronary Arteries using Other Contrast (ICD-10-PCS; 2024-09-24)
PROC: B215YZZ Fluoroscopy of Left Heart using Other Contrast (ICD-10-PCS; 2024-09-24)
PROC: 0W9B3ZX Drainage of Left Pleural Cavity, Percutaneous Approach, Diagnostic (ICD-10-PCS; 2024-09-25)
PROC: 0W993ZZ Drainage of Right Pleural Cavity, Percutaneous Approach (ICD-10-PCS; 2024-09-26)
DX: A41.9 Sepsis, unspecified organism (principal); I50.33 Acute on chronic diastolic (congestive) heart failure; J96.21 Acute and chronic respiratory failure with hypoxia; N17.0 Acute kidney failure with tubular necrosis; J15.69 Pneumonia due to other Gram-negative bacteria; J15.9 Unspecified bacterial pneumonia; J44.0 Chronic obstructive pulmonary disease with (acute) lower respiratory infection; I16.1 Hypertensive emergency; J91.8 Pleural effusion in other conditions classified elsewhere; J44.1 Chronic obstructive pulmonary disease with (acute) exacerbation; Z20.822 Contact with and (suspected) exposure to COVID-19; I11.0 Hypertensive heart disease with heart failure; E11.65 Type 2 diabetes mellitus with hyperglycemia; I25.10 Atherosclerotic heart disease of native coronary artery without angina pectoris; F17.210 Nicotine dependence, cigarettes, uncomplicated; E78.5 Hyperlipidemia, unspecified; I34.0 Nonrheumatic mitral (valve) insufficiency; E11.51 Type 2 diabetes mellitus with diabetic peripheral angiopathy without gangrene; I49.3 Ventricular premature depolarization; Z89.511 Acquired absence of right leg below knee; Z83.3 Family history of diabetes mellitus; Z98.61 Coronary angioplasty status; Z82.49 Family history of ischemic heart disease and other diseases of the circulatory system; Z79.4 Long term (current) use of insulin; Z79.899 Other long term (current) drug therapy
CPT/HCPCS: 32555; 36415; 36600; 70450; 71045; 71250; 76604; 76942; 78582; 80048; 80053; 80061; 81001; 82805; 82962; 83036; 83615; 83880; 83986; 84443; 84484; 85025; 85379; 85610; 85730; 87070; 87086; 87205; 87426; 87804; 89051; 93005; 93306; 93458; 93975; 94640; 94660; 96374; 99152; 99291; G0378; J1815; J2250; J2543; Q9967

== ENCOUNTER 2025-01-27 07:11 | Outpatient (CLI) | payer MEDICARE, MEDICAID ==
[~2025-01-27 07:11] MED LIST changes: +AMOX500T86 PO; -EMPA1TAB PO; -FURO1TAB33 PO; +SPIR25TA PO
[2025-01-27 07:57] LABS: Urine Protein, UAD 2+ (Negative)
[2025-01-27 08:00] LABS: Hematocrit 42.6 % (41.0-53.0); Hemoglobin 14.9 g/dL (13.5-17.5); Mean Corpuscular Hemoglobin 30.1 pg (28.0-32.0); Mean Corpuscular Volume 86.1 fL (80.0-100.0); Nucleated Red Blood Cells % 0.1 %
[2025-01-27 08:01] LABS: Alanine Aminotransferase 18 U/L (7-40); Albumin 3.6 g/dL (3.2-4.8); Anion Gap 8 (5-15); BUN/Creatinine Ratio 16.3 (10.0-20.0); Calcium 9.3 mg/dL (8.7-10.4); Carbon Dioxide 25 mmol/L (20-31); Chloride 106 mmol/L (98-107); Potassium 4.4 mmol/L (3.5-5.1); Sodium 139 mmol/L (136-145); Total Protein 6.6 g/dL (5.7-8.2)
[2025-01-27 08:02] LABS: Bilirubin, Total 0.3 mg/dL (0.2-1.0)
[2025-01-27 08:03] LABS: Alkaline Phosphatase 163 U/L (46-116); Blood Urea Nitrogen 35 mg/dL (9-23); Cholesterol 313 mg/dL (< 200); Glucose 179 mg/dL (74-106); HDL Cholesterol 37 mg/dL (40-59); Protein, Urine 373.4 mg/dL (1-14); Triglycerides 247 mg/dL (< 150)
[2025-01-27 08:50] LABS: Prostate Specific Antigen 0.35 ng/mL (0.0-4.0)
[2025-01-27 08:54] LABS: Free T4 (Free Thyroxine) 0.97 ng/dL (0.89-1.76)
== END 2025-01-27 17:00 | disposition home or self-care (01) ==
LOC: LAB 07:11
PROVIDERS: ATTEND Internal Medicine
DX: I13.0 Hypertensive heart and chronic kidney disease with heart failure and stage 1 through stage 4 chronic kidney disease, or unspecified chronic kidney disease (principal); E11.22 Type 2 diabetes mellitus with diabetic chronic kidney disease; E11.29 Type 2 diabetes mellitus with other diabetic kidney complication; N18.32 Chronic kidney disease, stage 3b; I50.9 Heart failure, unspecified; E11.69 Type 2 diabetes mellitus with other specified complication; E78.5 Hyperlipidemia, unspecified; I16.0 Hypertensive urgency; R80.9 Proteinuria, unspecified; Z79.899 Other long term (current) drug therapy
CPT/HCPCS: 36415; 80053; 80061; 81001; 82043; 82306; 82570; 83036; 84153; 84156; 84439; 84443; 85025

== ENCOUNTER 2025-04-14 08:36 | Outpatient (CLI) | payer MEDICARE, MEDICAID ==
[2025-04-14 09:25] LABS: Hematocrit 39.7 % (41.0-53.0); Hemoglobin 13.1 g/dL (13.5-17.5); Mean Corpuscular Hemoglobin 28.4 pg (28.0-32.0); Mean Corpuscular Volume 86.3 fL (80.0-100.0); Nucleated Red Blood Cells % 0.1 %
[2025-04-14 10:03] LABS: Alanine Aminotransferase 32 U/L (7-40); Albumin 3.7 g/dL (3.2-4.8); Anion Gap 10 (5-15); BUN/Creatinine Ratio 10.7 (10.0-20.0); Bilirubin, Total 0.3 mg/dL (0.2-1.0); Carbon Dioxide 24 mmol/L (20-31); Chloride 106 mmol/L (98-107); Magnesium 2.1 mg/dL (1.6-2.6); Potassium 4.4 mmol/L (3.5-5.1); Sodium 140 mmol/L (136-145); Total Protein 7.0 g/dL (5.7-8.2)
[2025-04-14 10:11] LABS: Alkaline Phosphatase 200 U/L (46-116); Blood Urea Nitrogen 27 mg/dL (9-23); Calcium 8.2 mg/dL (8.7-10.4); Glucose 192 mg/dL (74-106)
[2025-04-14 10:35] LABS: Uric Acid 5.9 mg/dL (3.7-9.2)
[2025-04-15 11:07] LABS: Anti-Nuclear Antibody Direct Negative (Negative)
== END 2025-04-14 17:00 | disposition home or self-care (01) ==
LOC: LAB 08:36
PROVIDERS: ATTEND Student in an Organized Health Care Education/Training Program
DX: E11.22 Type 2 diabetes mellitus with diabetic chronic kidney disease (principal); N18.30 Chronic kidney disease, stage 3 unspecified; E11.21 Type 2 diabetes mellitus with diabetic nephropathy; E55.9 Vitamin D deficiency, unspecified; E21.3 Hyperparathyroidism, unspecified; N39.0 Urinary tract infection, site not specified; D63.1 Anemia in chronic kidney disease; M10.9 Gout, unspecified; R80.9 Proteinuria, unspecified
CPT/HCPCS: 36415; 80053; 82088; 83036; 83735; 83970; 84100; 84244; 84550; 85025; 86038; 86160